=== PATIENT | female | born 1945 | race Caucasian/White ===

== ENCOUNTER 2024-01-08 09:54 | Observation (INO) ==
--- NOTE | 2024-01-08 10:21 | Emergency Department Note ---
Impression & Plan Rectal bleeding, Anal cancer, Leukocytosis ED Provider Note NAME: DEBBIE MARINO AGE: 78 SEX: F : 1945 ARRIVES VIA: Walk-In INFORMANT: [Patient] ED PROVIDER(S): [Davin Sorensen MD] CHIEF COMPLAINT: Rectal bleeding HISTORY OF PRESENT ILLNESS: The patient is a 78-year-old female who was diagnosed with anal cancer. She has seen a surgeon at [facility] and no surgery is scheduled. She has been seeing radiation oncology and is set for her next appointment on Wednesday, in 4 days. She has not yet undergone radiation therapy. Patient states that this morning, she awoke and had a bowel movement. There was blood with the bowel movement and there seemed to be a lot of blood. The blood was bright red. The bleeding has been persistent on and off since. She has not been dizzy or lightheaded. She does not have any abdominal pain. She has never had bleeding from the rectum/anus before. She is not on blood thinning agents, she does not take aspirin. PMHx/PSHx/Social Hx: See Below PHYSICAL EXAM: GENERAL: Patient is in no acute distress. HEENT: No acute trauma, normocephalic atraumatic, mucous membranes moist, no nasal congestion. NECK: No stridor, no adenopathy, no meningismus, trachea is midline. LUNGS: Clear to auscultation bilaterally, no wheeze, no rhonchi, breath sounds equal. HEART: Without murmurs gallops or rubs, regular rate and rhythm. ABDOMEN: Soft, nontender, no peritonitis. EXTREMITIES: No cyanosis, full range of motion of all the joints without pain or difficulty. NEUROLOGIC: Oriented x 3, no acute motor or sensory deficits, no focal weakness. SKIN: No jaundice, no diaphoresis. Rectal: The patient has a hard mass about the anus. The anal canal is small. There is bright red blood noted, no excessive bleeding at this point. DIFFERENTIAL DIAGNOSIS: Anemia, rectal/anal cancer, rectal perforation, abscess, coagulopathy, among others. EMERGENCY DEPARTMENT PROCEDURES: MEDICAL DECISION MAKING: There is a subtle leukocytosis, this certainly could be consistent with infection or just the stress of today's presentation. No anemia. There is a normal platelet count. No coagulopathy. There is some renal insufficiency but this appears baseline looking back at previous testing. No concerning liver enzyme elevation. Abdominal and pelvis CT does show findings of anal cancer, no evidence for excessive bleeding by CT imaging, no mention of abscess. On exam, the patient had a firm anal mass consistent with her renal cancer diagnosis. There was some bright red blood per rectum. The patient presents with rectal/anal bleeding. I suspect the bleeding is from her malignancy. As things just began, I do think she requires some observation to see how this issue progresses. Hopefully, it will spontaneously resolve. She will need her hemoglobin trended. I did speak with the patient and case management, the on-call hospitalist was consulted. Prior/Outside records/notes reviewed: Radiation oncology note from 12/30/2023 discussing findings of anal/rectal cancer and the plan moving forward. GI note from 11/02/2023 discussing her sigmoidoscopy and the findings of malignancy. Imaging/x-ray results per my interpretation: Chronic Medical/Social conditions affecting care: Advanced age. Care/Management discussed with: Case management, the on-call hospitalist. Level of care consideration(s): After review of the information above and other included data: --I believe the patient requires escalation of care to admission DISPOSITION: Admission Past Med/Surg History Medical History Fatigue Hemorrhoids Allergic rhinitis Seasonal allergies Loose stools Hx of cervical cancer hx-> 50 yrs ago - no chemo or radiation Hx of vertigo intermittent- no issues in "quite a while" Hypertension Surgical History (Updated 12/21/23 @ 13:31 by Kesha Trotter RN) History of esophagogastroduodenoscopy Hx of colonoscopy Hx of breast lump removal benign Hx of vein stripping H/O: hysterectomy Family History Daughter Ulcerative colitis Denies family history of Crohn's disease Colorectal cancer Social History Smoking Status: Current every day smoker Tobacco Type: Cigarettes Age Started Using Tobacco: 13; packs per day: 0.5; Cigarettes Per Day: 5-7 PER DAY- ADVISED; Second Hand Exposure: No; Do You Dip or Chew Tobacco: No; Hx Alcohol Use: No Hx Substance Use: No Preferred Language: Setswana Communication Ability: Effective Space Officer Required: No Beliefs That Will Affect Care: None Current Living Situation: Spouse Feels Safe at Home: Yes Diet: regular during the past year weight has: decreased > 10 lbs Assistive Devices: Denture - Upper, Denture - Lower and Glasses Allergies Allergies Allergy/AdvReac Type Severity Reaction Status Date / Time No Known Allergies Allergy Verified 12/21/23 13:29 Home Meds Home Medications Medication Instructions Recorded Confirmed atenolol 100 mg tablet 100 mg PO 1130 07/02/23 01/08/24 meclizine 25 mg tablet 25 mg PO BID PRN Vertigo 07/02/23 01/08/24 Previous Rx's Medication Instructions Recorded pantoprazole 40 mg tablet,delayed 40 mg PO DAILY #30 tabs 10/25/23 release silver sulfadiazine 1 % topical 1 applic topical BID area of skin 12/27/23 cream (Silvadene) irritation #85 grams Results & Data (ED) Vital Signs Vital Signs - 24 hr 01/08/24 10:00 01/08/24 10:29 01/08/24 10:30 Temperature 36.9 C Temperature Source Oral Pulse Rate 66 60 Pulse Rate [Right Finger] Pulse Rate from SpO2 Sensor 59 L Respiratory Rate 16 Respiratory Effort / Characteristics Non-Labored Respiratory Depth Normal Blood Pressure 174/80 H 183/84 H Blood Pressure [Right Arm] Blood Pressure Mean 111 127 Blood Pressure Mean [Right Arm] Pulse Oximetry 95 98 Oxygen Delivery Method Room Air Sepsis Recent Fever Within 48 Hours No Sepsis New/Unexplained Change in Mental Status N/A Sepsis Action Taken by Nursing No Action Required 01/08/24 10:30 01/08/24 10:38 01/08/24 10:40 Temperature Temperature Source Pulse Rate 58 L 59 L 54 L Pulse Rate [Right Finger] Pulse Rate from SpO2 Sensor 58 L 54 L Respiratory Rate Respiratory Effort / Characteristics Respiratory Depth Blood Pressure Blood Pressure [Right Arm] Blood Pressure Mean Blood Pressure Mean [Right Arm] Pulse Oximetry 98 96 Oxygen Delivery Method Sepsis Recent Fever Within 48 Hours Sepsis New/Unexplained Change in Mental Status Sepsis Action Taken by Nursing 01/08/24 10:50 01/08/24 11:00 01/08/24 11:00 Temperature Temperature Source Pulse Rate 53 L 54 L Pulse Rate [Right Finger] Pulse Rate from SpO2 Sensor 53 L 53 L Respiratory Rate 12 18 Respiratory Effort / Characteristics Respiratory Depth Blood Pressure 180/80 H Blood Pressure [Right Arm] Blood Pressure Mean 148 Blood Pressure Mean [Right Arm] Pulse Oximetry 97 96 Oxygen Delivery Method Sepsis Recent Fever Within 48 Hours Sepsis New/Unexplained Change in Mental Status Sepsis Action Taken by Nursing 01/08/24 11:02 01/08/24 11:02 01/08/24 11:03 Temperature Temperature Source Pulse Rate 53 L 52 L Pulse Rate [Right Finger] Pulse Rate from SpO2 Sensor 53 L Respiratory Rate 13 14 Respiratory Effort / Characteristics Respiratory Depth Blood Pressure 164/90 H Blood Pressure [Right Arm] Blood Pressure Mean 120 Blood Pressure Mean [Right Arm] Pulse Oximetry 95 96 Oxygen Delivery Method Room Air Sepsis Recent Fever Within 48 Hours Sepsis New/Unexplained Change in Mental Status Sepsis Action Taken by Nursing 01/08/24 11:03 01/08/24 11:10 01/08/24 11:20 Temperature Temperature Source Pulse Rate 54 L 54 L Pulse Rate [Right Finger] 52 L Pulse Rate from SpO2 Sensor 54 L 54 L Respiratory Rate 14 23 Respiratory Effort / Characteristics Non-Labored Respiratory Depth Normal Blood Pressure Blood Pressure [Right Arm] 164/90 H Blood Pressure Mean Blood Pressure Mean [Right Arm] 114 Pulse Oximetry 96 96 95 Oxygen Delivery Method Room Air Sepsis Recent Fever Within 48 Hours Sepsis New/Unexplained Change in Mental Status Sepsis Action Taken by Nursing 01/08/24 11:36 01/08/24 12:42 Temperature Temperature Source Pulse Rate 56 L Pulse Rate [Right Finger] 52 L Pulse Rate from SpO2 Sensor Respiratory Rate 23 20 Respiratory Effort / Characteristics Non-Labored Spontaneous Respiratory Depth Normal Blood Pressure Blood Pressure [Right Arm] 152/66 H Blood Pressure Mean Blood Pressure Mean [Right Arm] 94 Pulse Oximetry 97 Oxygen Delivery Method Room Air Sepsis Recent Fever Within 48 Hours Sepsis New/Unexplained Change in Mental Status Sepsis Action Taken by Care Home Medications Current Medication List: was personally reviewed by me Laboratory Data Attestation: I reviewed the patient's lab results. 01/08/24 10:19 01/08/24 10:19 Lab Results 01/08/24 Range/Units 10:19 WBC 11.29 H (4.8-10.8) K/ul RBC 4.58 (4.20-5.40) M/uL Hgb 14.4 (12.0-16.0) g/dl Hct 45.0 (37.0-47.0) % MCV 98.3 (80.0-100.0) fL MCH 31.4 (25.0-34.0) pg MCHC 32.0 (32.0-36.0) g/dL RDW Std Deviation 45.2 (36.4-46.3) fL RDW Coeff of Mini 12.6 (11.5-14.5) % Plt Count 186 (130-400) K/uL MPV 9.8 (9.4-12.4) fL PT 10.6 (9.0-12.0) Seconds INR 1.0 (0.9-1.1) APTT 26 (21-31) Seconds PTT Ratio 0.9 Sodium 138 (136-145) mmol/L Potassium 4.2 (3.5-5.1) mmol/L Chloride 103 (98-107) mmol/L Carbon Dioxide 29 (21-32) mmol/L Anion Gap 6 (3-11) BUN 34 H (6-23) mg/dl Creatinine 1.55 H (0.6-1.2) mg/dl Est Cr Clr Drug Dosing 24.1 ml/min Est GFR ( Amer) 36.5 ml/min Est GFR (Non-Af Amer) 31.5 ml/min BUN/Creatinine Ratio 21.9 H (10-20) Glucose 123 H (70-99(Fasting)) mg/dl Calcium 9.4 (8.6-10.3) mg/dl Total Bilirubin 0.6 (0.2-1.0) mg/dl AST 15 (13-39) U/L ALT 9 (7-52) U/L Alkaline Phosphatase 76 (34-104) U/L Total Protein 8.1 (6.0-8.3) gm/dl Albumin 3.6 (3.4-5.0) gm/dl Globulin 4.5 H (2.5-4.0) gm/dl Albumin/Globulin Ratio 0.8 L (0.9-2) Blood Type A Positive Antibody Screen NEGATIVE Administered Medications Discontinued Medications Diphenhydramine HCl (Diphenhydramine 50 Mg/Ml Vial) 25 mg IV NOW STA Stop: 01/08/24 11:33 Last Admin: 01/08/24 11:39 Dose: 25 mg Documented By: NRB Sodium Chloride (Nss) 500 mls @ 999 mls/hr IV .Q31M ONE Stop: 01/08/24 12:47 Last Admin: 01/08/24 12:40 Dose: 999 mls/hr Documented By: GARRISON Ioversol (Optiray 320 100ml) 92 ml IV ONCE ONE Stop: 01/08/24 12:11 Last Admin: 01/08/24 12:10 Dose: 92 ml Documented By: VINCENZO Methylprednisolone (Methylprednisolone 125 Mg/2 Ml Vial) 60 mg IV NOW STA Stop: 01/08/24 11:33 Last Admin: 01/08/24 11:39 Dose: 60 mg Documented By: NRB Imaging Data Radiologist's Impression: Abdomen/Pelvis CT 01/08/24 10:16 CT abd pelvis IV con only CLINICAL HISTORY: eval, rectum/anus. Anal CA, bleeding TECHNIQUE: Helical axial images of the abdomen and pelvis were obtained and displayed. Automated dose lowering techniques and/or adjustment according to patient size were utilized for this exam. This exam was performed with intravenous contrast. CT DOSE: 281.21 mGy.cm COMPARISON: Comparison is made to CT abdomen pelvis 12/27/[address] 12/28/2023 FINDINGS: Lower chest: Bibasilar atelectasis versus scarring is seen. Liver: Unremarkable. No focal lesions are seen. Gallbladder and biliary tree: No calcified gallstones. Normal caliber wall. No intra- or extrahepatic biliary ductal dilation. Pancreas: Unremarkable, no focal lesions. Spleen: Unremarkable. Adrenals: Nodularity of the adrenal glands is noted. Kidneys and ureters: Renal cysts are seen. Bladder: Unremarkable. Reproductive organs: Unremarkable. Bowel: Diverticulosis is seen without evidence of diverticulitis. There is prominent wall thickening and surrounding fat stranding about the anus. Small intramural hypodensities are seen posteriorly measuring up to 7 mm. Lymph nodes Retroperitoneal: Unremarkable. Pelvic: Unremarkable. Mesenteric: Left inguinal node measures up to 12 mm in diameter. Stable 7 mm right external iliac node. Peritoneum: Normal. Vessels: Atherosclerotic calcifications are seen. Abdominal wall: Unremarkable. Bones: Degenerative changes in the visualized spine. IMPRESSION: 1. Soft tissue thickening about the rectum is seen. Heterogeneity of the soft tissue with subcentimeter hypodensities, nonspecific and may represent focuses of necrosis however infection is not excluded. 2. Stable lymph nodes as above. ACT 112: Negative or not required by law. Electronically signed by: Kennedy Faye M.D. 01/08/2024 12:30 PM Discharge Plan Visit Data Chief Complaint: Rectal Bleed Stated Complaint: RECTAL BLEEDING ED Provider: Davin Sorensen Discharge Problem: Rectal bleeding, Anal cancer, Leukocytosis Patient Disposition: Admitted As Inpatient Condition: Fair Forms Stand Alone Forms: [facility] [employer] Prescriptions Prescriptions: No Action atenolol 100 mg tablet 100 mg PO 1130 meclizine 25 mg tablet 25 mg PO BID PRN (Reason: Vertigo) silver sulfadiazine [Silvadene] 1 % cream 1 applic topical BID Qty: 85 3RF Rx Instructions: apply a 1.5 mm thickness pantoprazole 40 mg tablet,delayed release (DR/EC) 40 mg PO DAILY Qty: 30 5RF Referrals Referrals: Burke Ospina [Primary Care Provider] - Discharge Problem: Leukocytosis Qualifiers: Leukocytosis type: unspecified Qualified Code(s): D72.829 - Elevated white blood cell count, unspecified
[2024-01-08 10:41] LABS: Hemoglobin 14.4 g/dl (12.0-16.0); Mean Corpuscular Hemoglobin 31.4 pg (25.0-34.0); Mean Corpuscular Volume 98.3 fL (80.0-100.0); Mean Platelet Volume 9.8 fL (9.4-12.4); Platelet Count 186 K/uL (130-400); RDW Coefficient of Variation 12.6 % (11.5-14.5); RDW Standard Deviation 45.2 fL (36.4-46.3); Red Blood Count 4.58 M/uL (4.20-5.40); White Blood Count 11.29 K/ul (4.8-10.8)
[2024-01-08 10:55] LABS: Albumin Globulin Ratio 0.8 (0.9-2); Albumin Level 3.6 gm/dl (3.4-5.0); BUN Creatinine Ratio 21.9 (10-20); Bilirubin,Total 0.6 mg/dl (0.2-1.0); Calcium 9.4 mg/dl (8.6-10.3); Creatinine Clr Calc Pharmacy 24.1 ml/min; Est GFR (African American) 36.5 ml/min; Est GFR (Non-African American) 31.5 ml/min; Globulin 4.5 gm/dl (2.5-4.0); Potassium 4.2 mmol/L (3.5-5.1); Total Protein 8.1 gm/dl (6.0-8.3)
[2024-01-08 11:06] LABS: Partial Thromboplastin Ratio 0.9; Partial Thromboplastin Time 26 Seconds (21-31); Prothrombin Time 10.6 Seconds (9.0-12.0)
[2024-01-08] MEDS: methylPREDNISolone 125 MG/2 ML VIAL IV STA (11:39)
[2024-01-08] MEDS: diphenhydrAMINE 50 MG/ML VIAL IV STA (11:39)
[2024-01-08] MEDS: OPTIRAY 320 100ml IV ONE (12:10)
--- NOTE | 2024-01-08 12:32 | CT Scan Report ---
CT abd pelvis IV con only CLINICAL HISTORY: eval, rectum/anus. Anal CA, bleeding TECHNIQUE: Helical axial images of the abdomen and pelvis were obtained and displayed. Automated dose lowering techniques and/or adjustment according to patient size were utilized for this exam. This e xam was performed with intravenous contrast. CT DOSE: 281.21 mGy.cm COMPARISON: Comparison is made to CT abdomen pelvis 12/27/[address] 12/28/2023 FINDINGS: Lower chest: Bibasilar atelectasis versus scarring is seen. Liver: Unremarkable. No focal lesions are seen. Gallbladder and biliary tree: No calcified gallstones. Normal caliber wall. No intra- or extrahepatic biliary ductal dilation. Pancreas: Unremarkable, no focal lesions. Spleen: Unremarkable. Adrenals: Nodularity of the adrenal glands is noted. Kidneys and ureters: Renal cysts are seen. Bladder: Unremarkable. Reproductive organs: Unremarkable. Bowel: Diverticulosis is seen without evidence of diverticulitis. There is prominent wall thickening and surrounding fat stranding about the anus. Small intramural hypodensities are seen posteriorly ginna suring up to 7 mm. Lymph nodes Retroperitoneal: Unremarkable. Pelvic: Unremarkable. Mesenteric: Left inguinal node measures up to 12 mm in diameter. Stable 7 mm right external iliac nod e. Peritoneum: Normal. Vessels: Atherosclerotic calcifications are seen. Abdominal wall: Unremarkable. Bones: Degenerative changes in the visualized spine. IMPRESSION: 1. Soft tissue thickening about the rectum is seen. Heterogeneity of the soft tissue with subcentime ter hypodensities, nonspecific and may represent focuses of necrosis however infection is not exclude d. 2. Stable lymph nodes as above. ACT 112: Negative or not required by law. Electronically signed by: Kennedy Faye M.D. 01/08/2024 12:30 PM
[2024-01-08] MEDS: SODIUM CHLORIDE 0.9% 500 ML IV ONE (12:40)
--- NOTE | 2024-01-08 12:45 | History & Physical Report ---
Date of Service January 08, 2024 Assessment & Plan (1) Bright red blood per rectum: Plan: BRB with bowel movements the morning of 01/07 x 2 Not on blood thinners Suspect lower GI bleed secondary to renal mass/cancer A/P CT did note hypodensities in the rectum which may represent focus of necrosis Hgb 14.4 on arrival; hemodynamically stable Trend H&H Type & Screen; blood form consent obtained (if needed) Keep n.p.o. for now, then advance to clear liquid diet as tolerated Continue IVF with LR at 80mL/hr while NPO Continue silver sulfadiazine cream for rectal irritation Tylenol as needed for pain/discomfort; avoid NSAIDs A.m. CBC, BMP, mag (2) Primary squamous cell carcinoma of anal canal: Plan: Dx via colonoscopy performed on 10/25/2023 Patient is scheduled to start radiation therapy on Thursday 01/11 at the [facility] (3) Leukocytosis: Plan: Mild; noted;WBC 11.29 on arrival Clinically, patient denies fever or infectious symptoms Repeat a.m. labs (4) Hypertension: Plan: Continue atenolol (5) Lower GI bleed: Plan Disposition: Obs -admit to PCU telemetry Full code Clear liquid diet, advance as tolerated VTE PPx: SCDs (hold chemical DVT PPx in the setting of acute rectal bleed) History of Present Illness Chief Complaint: Rectal Bleed Primary Care Provider: Burke Singh is a 78-year-old female with PMH of rectal cancer, rectal mass, and HTN. She presented for bright red blood in rectum x 2 episodes the morning of 01/07. No prior experiences like this one. Patient had recent diagnosis of SCC of anal canal via colonoscopy in October 2023. She is scheduled to start receiving radiation therapy on Thursday 01/[address] Masterson at the [facility], but notes that she has not had any radiation therapy yet. She was also seen by surgery at [place], who recommended trial of radiation therapy prior to any sort of surgery/colectomy. Patient reports that after BRB in rectum during a bowel movement this morning, she later tried standing up and noticed that she was bleeding/dripping from her rectum. She notes she is not having pain in the rectum, but notes she is having pressure, and a sensation like she needs to defecate at all times. No recent change in diet. She is not eating or drinking today. Prior to that she was tolerating solids and fluids fine. She reports that she took her regular morning medication, but did not take her pantoprazole. No recent change in medications. She does note she has a history of hemorrhoids, but noted that on her recent colonoscopy they were said to be small. Patient has been applying silver sulfadiazine cream to her rectum for itching, which she usually takes at night. No PMH of diverticulitis, Crohn's, UC, or IBD. No hx of blood transfusions. She takes Tylenol as needed for pain/discomfort, but denies any recent NSAID use. Patient is a current everyday tobacco cigarette smoker; 1 pack / 3 days. She denies any alcohol use. Patient is hypertensive at 164/90, and mildly bradycardic at 56 bpm at time of admission; vitals otherwise stable. ED course: NSS 500 mL IV Solu-Medrol 60 mg IV (pretreatment prior to CT for potential contrast allergy) Benadryl 25 mg IV (pretreatment prior to CT for potential contrast allergy) ROS: Patient endorses fatigue, dry cough, nausea, BRB in rectum, pressure in rectum, intermittent diarrhea, and itching around her rectum Patient denies fever, chills, nightsweats, dizziness, lightheadedness, CP, pleuritic CP, SOB, abdominal cramping, abdominal pain, constipation, flank pain, back pain, saddle anesthesia, pain/numbness/tingling in the legs. Allergies Allergy/AdvReac Type Severity Reaction Status Date / Time No Known Allergies Allergy Verified 12/21/23 13:29 Home Medications Medication Instructions Recorded Confirmed Type atenolol 100 mg tablet 100 mg PO 1130 07/02/23 01/08/24 History meclizine 25 mg tablet 25 mg PO BID PRN Vertigo 07/02/23 01/08/24 History pantoprazole 40 mg tablet,delayed 40 mg PO DAILY #30 tabs 10/25/23 01/08/24 Rx release silver sulfadiazine 1 % topical 1 applic topical BID area of skin 12/27/23 01/08/24 Rx cream (Silvadene) irritation #85 grams Past Med/Surg History Medical History Fatigue Hemorrhoids Allergic rhinitis Seasonal allergies Loose stools Hx of cervical cancer hx-> 50 yrs ago - no chemo or radiation Hx of vertigo intermittent- no issues in "quite a while" Hypertension Surgical History (Updated 12/21/23 @ 13:31 by Kesha Trotter RN) History of esophagogastroduodenoscopy Hx of colonoscopy Hx of breast lump removal benign Hx of vein stripping H/O: hysterectomy Family History Daughter Ulcerative colitis Denies family history of Crohn's disease Colorectal cancer Social History Smoking Status: Current every day smoker Tobacco Type: Cigarettes Age Started Using Tobacco: 13; packs per day: 0.5; Cigarettes Per Day: 5-7 PER DAY- ADVISED; Second Hand Exposure: No; Do You Dip or Chew Tobacco: No; Hx Alcohol Use: No Hx Substance Use: No Preferred Language: Turkmen Communication Ability: Effective Jewel Bearing Maker Required: No Beliefs That Will Affect Care: None Current Living Situation: Spouse Feels Safe at Home: Yes Diet: regular during the past year weight has: decreased > 10 lbs Assistive Devices: Denture - Upper, Denture - Lower and Glasses Review of Systems Review of Systems: See HPI above Physical Exam Physical Exam: General: no acute distress; pleasant affect; non-toxic appearing; well- nourished; cooperative; SpO2 97% on RA HEENT: normocephalic, atraumatic; no scleral icterus; PERRLA w/ EOMs intact; moist mucus membrane; vision and hearing grossly intact Neck: supple; no lymphadenopathy; trachea midline Skin: warm, dry without signs of tenting; no cyanosis; no rashes, bruising, lesions, or erythema noted CV: chest wall NTP; RR, mildly bradycardic at 52 bpm; S1/S2 normal; no murmurs/rubs/gallops; pulses intact and symmetric at radial, DP, and PT Lungs: no acute respiratory distress; symmetrical chest wall expansion; mild expiratory rhonchi auscultated across all lung ritter bilaterally ABD: Soft, NTP in all 4 quadrants; BS present; no rebound/guarding; no distention; no signs of rashes, bruising, or internal bleeding MSK: no tics or fasciculations; no edema noted in the LEs b/l, nonerythematous Neuro: A&Ox3; normal mood and affect; fluent speech; no focal deficits; sensation grossly intact in the LEs b/l Results & Data Results & Data Vital Signs (Past 12 Hours) Vital Signs Temp Pulse Pulse Resp BP BP Pulse Ox 01/08/24 12:42 52 L 20 152/66 H 97 01/08/24 11:36 56 L 23 01/08/24 11:20 54 L 23 95 01/08/24 11:10 54 L 96 01/08/24 11:03 52 L 14 164/90 H 96 01/08/24 11:03 52 L 14 96 01/08/24 11:02 164/90 H 01/08/24 11:02 53 L 13 95 01/08/24 11:00 54 L 18 96 01/08/24 11:00 180/80 H 01/08/24 10:50 53 L 12 97 01/08/24 10:40 54 L 96 01/08/24 10:38 59 L 01/08/24 10:30 58 L 98 01/08/24 10:30 183/84 H 01/08/24 10:29 60 98 01/08/24 10:00 36.9 C 66 16 174/80 H 95 O2 Del Method 01/08/24 12:42 Room Air 01/08/24 11:36 01/08/24 11:20 01/08/24 11:10 01/08/24 11:03 Room Air 01/08/24 11:03 Room Air 01/08/24 11:02 01/08/24 11:02 01/08/24 11:00 01/08/24 11:00 01/08/24 10:50 01/08/24 10:40 01/08/24 10:38 01/08/24 10:30 01/08/24 10:30 01/08/24 10:29 01/08/24 10:00 Room Air Laboratory Results Abnormal lab results 01/08/24 Range/Units 10:19 WBC 11.29 H (4.8-10.8) K/ul BUN 34 H (6-23) mg/dl Creatinine 1.55 H (0.6-1.2) mg/dl BUN/Creatinine Ratio 21.9 H (10-20) Glucose 123 H (70-99(Fasting)) mg/dl Globulin 4.5 H (2.5-4.0) gm/dl Albumin/Globulin Ratio 0.8 L (0.9-2) Diagnostic Findings Abdomen/Pelvis CT 01/08/24 10:16 CT abd pelvis IV con only CLINICAL HISTORY: eval, rectum/anus. Anal CA, bleeding TECHNIQUE: Helical axial images of the abdomen and pelvis were obtained and displayed. Automated dose lowering techniques and/or adjustment according to patient size were utilized for this exam. This exam was performed with intravenous contrast. CT DOSE: 281.21 mGy.cm COMPARISON: Comparison is made to CT abdomen pelvis 12/27/[address] 12/28/2023 FINDINGS: Lower chest: Bibasilar atelectasis versus scarring is seen. Liver: Unremarkable. No focal lesions are seen. Gallbladder and biliary tree: No calcified gallstones. Normal caliber wall. No intra- or extrahepatic biliary ductal dilation. Pancreas: Unremarkable, no focal lesions. Spleen: Unremarkable. Adrenals: Nodularity of the adrenal glands is noted. Kidneys and ureters: Renal cysts are seen. Bladder: Unremarkable. Reproductive organs: Unremarkable. Bowel: Diverticulosis is seen without evidence of diverticulitis. There is pr ominent wall thickening and surrounding fat stranding about the anus. Small intramural hypodensities are seen posteriorly measuring up to 7 mm. Lymph nodes Retroperitoneal: Unremarkable. Pelvic: Unremarkable. Mesenteric: Left inguinal node measures up to 12 mm in diameter. Stable 7 mm right external iliac node. Peritoneum: Normal. Vessels: Atherosclerotic calcifications are seen. Abdominal wall: Unremarkable. Bones: Degenerative changes in the visualized spine. IMPRESSION: 1. Soft tissue thickening about the rectum is seen. Heterogeneity of the soft tissue with subcentimeter hypodensities, nonspecific and may represent focuses of necrosis however infection is not excluded. 2. Stable lymph nodes as above. ACT 112: Negative or not required by law. Electronically signed by: Kennedy Faye M.D. 01/08/2024 12:30 PM Code Status & VTE Plan Code Status Full code VTE Prophylaxis Plan VTE Prophylaxis will be ordered: Yes Supervising Physician Co-Signing Physician Notes I personally saw and examined the patient. I independently reviewed the labs, imaging, problem list, medication list, past medical history and family history. I verified all perla points and agree with Hudson Ortiz PA-C with the following exceptions and/or additions: 78 year old female with anal cancer presents to the ER with bright red blood in stool started this morning. O/E HS RRR, no murmurs, Chest CTAB, Abdo SNT A/P Bright red blood per rectum - secondary to anal cancer, trend H&H, if stable overnight can likely be discharged tomorrow. Transfuse <7. PG Care Time/CCT Total # of Minutes Spent Total Time Spent with Patient: Total time spent is greater than 50% in coordination of care (as documented) at patient's floor/unit and/or counseling patient: [place] [address] INT INP/OBS CARE 2/55MIN Patient Type New Medical Decision Making Low Complexity Diagnoses Bright red blood per rectum K62.5 Primary squamous cell carcinoma of anal canal C44.520 Leukocytosis D72.829 Leukocytosis type: unspecified Hypertension I10 Lower GI bleed K92.2 (3) Leukocytosis Leukocytosis type: unspecified Qualified Code(s): D72.829 - Elevated white blood cell count, unspecified
[2024-01-08] MEDS: LACTATED RINGER'S 1,000 ML IV SCH (14:03)
[2024-01-08] MEDS: PANTOprazole 40 MG TAB PO STA (14:05)
[2024-01-08] MEDS ORDERED: ACETAMINOPHEN 325 MG TAB PO PRN (15:47)
[2024-01-08] MEDS ORDERED: ONDANSETRON INJ 2 MG/ML 2 ML VIAL IV PRN (15:47)
[2024-01-08] MEDS ORDERED: NICOTINE 14 MG/24 HR PATCH TD SCH (16:45)
[2024-01-08] MEDS: NICOTINE 7 MG/24 HR TDSY TD SCH (17:55)
[2024-01-08 18:27] LABS: Hematocrit (blood only) 43.5 % (37.0-47.0); Hemoglobin 13.9 g/dl (12.0-16.0)
[2024-01-08] MEDS: SILVER SULFADIAZINE 1% CR 50 GM JAR TOP SCH (20:55)
[2024-01-09 07:19] LABS: Basophils # (auto) 0.07 K/uL (0.00-0.20); Basophils % (auto) 0.6 %; Eosinophils # (auto) 0.03 K/uL (0.00-0.50); Eosinophils % (auto) 0.3 %; Hemoglobin 12.5 g/dl (12.0-16.0); Immature Granulocytes # (auto) 0.09 K/uL (0.01-0.20); Immature Granulocytes % (auto) 0.8 %; Lymphocytes # (auto) 1.58 K/uL (1.20-3.40); Lymphocytes % (auto) 14.3 %; Mean Corpuscular Hemoglobin 31.9 pg (25.0-34.0); Mean Corpuscular Hgb Conc 33.8 g/dL (32.0-36.0); Mean Corpuscular Volume 94.4 fL (80.0-100.0); Mean Platelet Volume 9.8 fL (9.4-12.4); Monocytes # (auto) 0.81 K/uL (0.11-0.59); Monocytes % (auto) 7.4 %; Neutrophils # (auto) 8.44 K/uL (1.40-6.50); Neutrophils % (auto) 76.6 %; Platelet Count 163 K/uL (130-400); RDW Coefficient of Variation 12.3 % (11.5-14.5); RDW Standard Deviation 42.7 fL (36.4-46.3); Red Blood Count 3.92 M/uL (4.20-5.40); White Blood Count 11.02 K/ul (4.8-10.8)
[2024-01-09 07:37] LABS: BUN Creatinine Ratio 25.6 (10-20); Creatinine Clr Calc Pharmacy 29.9 ml/min; Est GFR (African American) 45.6 ml/min; Est GFR (Non-African American) 39.4 ml/min; Magnesium 1.6 mg/dl (1.7-2.4); Potassium 4.3 mmol/L (3.5-5.1)
[2024-01-09] MEDS: PANTOprazole 40 MG TAB PO SCH (08:08)
--- NOTE | 2024-01-09 11:13 | Discharge Summary ---
Date of Service January 09, 2024 Admission HPI Per Admitting Provider Samantha is a 78-year-old female with PMH of rectal cancer, rectal mass, and HTN. She presented for bright red blood in rectum x 2 episodes the morning of 01/07. No prior experiences like this one. Patient had recent diagnosis of SCC of anal canal via colonoscopy in October 2023. She is scheduled to start receiving radiation therapy on Thursday 01/[address] Masterson at the [facility], but notes that she has not had any radiation therapy yet. She was also seen by surgery at [place], who recommended trial of radiation therapy prior to any sort of surgery/colectomy. Patient reports that after BRB in rectum during a bowel movement this morning, she later tried standing up and noticed that she was bleeding/dripping from her rectum. She notes she is not having pain in the rectum, but notes she is having pressure, and a sensation like she needs to defecate at all times. No recent change in diet. She is not eating or drinking today. Prior to that she was tolerating solids and fluids fine. She reports that she took her regular morning medication, but did not take her pantoprazole. No recent change in medications. She does note she has a history of hemorrhoids, but noted that on her recent colonoscopy they were said to be small. Patient has been applying silver sulfadiazine cream to her rectum for itching, which she usually takes at night. No PMH of diverticulitis, Crohn's, UC, or IBD. No hx of blood transfusions. She takes Tylenol as needed for pain/discomfort, but denies any recent NSAID use. Patient is a current everyday tobacco cigarette smoker; 1 pack / 3 days. She denies any alcohol use. Patient is hypertensive at 164/90, and mildly bradycardic at 56 bpm at time of admission; vitals otherwise stable. ED course: NSS 500 mL IV Solu-Medrol 60 mg IV (pretreatment prior to CT for potential contrast allergy) Benadryl 25 mg IV (pretreatment prior to CT for potential contrast allergy) ROS: Patient endorses fatigue, dry cough, nausea, BRB in rectum, pressure in rectum, intermittent diarrhea, and itching around her rectum Patient denies fever, chills, nightsweats, dizziness, lightheadedness, CP, pleuritic CP, SOB, abdominal cramping, abdominal pain, constipation, flank pain, back pain, saddle anesthesia, pain/numbness/tingling in the legs. Principal Diagnosis Rectal bleeding secondary to malignancy Discharge Exam General-alert and oriented x3, no fever, no chills HEENT-head atraumatic and normocephalic, pupils equal and reactive to light, extraocular muscles intact Neck-no lymphadenopathy or thyromegaly, trachea midline Chest-clear to auscultation. No rales, wheezing or rhonchi Cardiac-regular rate and rhythm, normal S1 and S2 Abdomen-normal bowel sounds, nontender, no hepatosplenomegaly Extremities-no cyanosis, clubbing, or edema Neuro-cranial nerves II through XII intact, motor and sensory function within normal limits, strength symmetrical, no focal deficits Psych-normal affect, normal mood Discharge Data Allergies Allergy/AdvReac Type Severity Reaction Status Date / Time No Known Allergies Allergy Verified 12/21/23 13:29 Consultations 01/08/24 12:27 ED Decision to Admit Stat Ordered Studies 01/08/24 10:16 CT abd pelvis IV con only Stat Hospital Course (1) Bright red blood per rectum: Rectal bleeding most likely from underlying malignancy. This has subsided. Hemoglobin is stable. She understands this could recur until she receives definitive treatment. Fortunately she is not on systemic anticoagulation (2) Primary squamous cell carcinoma of anal canal: Dx via colonoscopy performed on 10/25/2023. Patient is scheduled to start radiation therapy on Thursday 01/11 at the [facility] (3) Leukocytosis: Mild. No clinical significance. No fever (4) Hypertension: Stable. Continue atenolol Plan Home today, January 08. Commence radiation treatments this week as scheduled Total Time Total Time Spent Total Time Spent (In Minutes): 45-minute Discharge Plan Discharge Items Patient Disposition: Home - Self-Care Reason For Visit: RECTAL BLEED Discharge Diagnosis: Rectal bleeding from malignancy Condition on Discharge: Good Activity: Resume your previous activity Non-emergency contact: Primary Care Provider and Oncologist Call non-emergency contact if: your symptoms worsen Follow-up/Referrals: Burke Ospina [Primary Care Provider] - Diet: Regular Addtl Attending Provider Instructions: Bleeding could recur until rectal cancer is treated. Avoid aspirin or nonsteroidal anti-inflammatory agents. Tylenol is okay Pending Studies at Discharge: No Stand-Alone Forms: [employer], Smoking Cessation Medications and DC Order Prescriptions: Continued atenolol 100 mg tablet 100 mg PO 1130 meclizine 25 mg tablet 25 mg PO BID PRN (Reason: Vertigo) silver sulfadiazine [Silvadene] 1 % cream 1 applic topical BID Qty: 85 3RF Rx Instructions: apply a 1.5 mm thickness pantoprazole 40 mg tablet,delayed release (DR/EC) 40 mg PO DAILY Qty: 30 5RF Discharge Orders: Discharge Order (Routine); Ordered 01/09/24 Ordered By: Tyson Maki Admission Data Admit Date/Time: 01/08/24 13:14 Attending Provider: Tyson Maki Admit Provider: Oliver Luna Primary Care Provider: Burke Ospina Other Providers: Oliver Luna Coding Level of Care Code 90104 INP/OBS DISCH >30 MIN Diagnoses Bright red blood per rectum K62.5 Primary squamous cell carcinoma of anal canal C44.520 Leukocytosis D72.829 Leukocytosis type: unspecified Hypertension I10
[2024-01-09] MEDS: ATENOLOL 50 MG TABLET PO SCH (12:02)
== END 2024-01-09 12:57 | disposition home or self-care (01) ==
LOC: 2E 09:54 → ED 09:54 → SUATTDRO 13:14 → 2E 15:13

== ENCOUNTER 2024-02-26 21:29 | Inpatient (IN) ==
--- NOTE | 2024-02-26 21:41 | Emergency Department Note ---
Impression & Plan Diarrhea, Hypomagnesemia, Pancytopenia, Hypocalcemia, Excoriation of buttock ED Provider Note NAME: DEBBIE MARINO AGE: 79 SEX: F : 1945 ARRIVES VIA: Ambulance INFORMANT: Patient, Charge nurse reports, initial nursing triage note ED PROVIDER(S): Martin Sal MD CHIEF COMPLAINT: Diarrhea, outpatient referral MEDICAL DECISION MAKING: Patient presented due to concern for diarrhea. IV was established and blood work was obtained. Patient was ordered IV fluids and IV zofran. I did message the patient's food specialist Davin Reese PA-C. He does agree with plan of care and a will see the patient tomorrow. Patient does have leukopenia anemia and thrombocytopenia. Patient's ANC is 560. Patient's creat is 1.32 which is improved compared to earlier. Patient does have prerenal azotemia associated hypocalcemia and hypomagnesemia. TSH normal. Patient was reassessed and states that she was feeling improved. Discussion w/ other healthcare providers: Davin Reese PA-C with oncology Dr. White inpatient medicine service Prior /Outside records reviewed: Reviewed an ED visit note from earlier today from Dr. Perera. The patient was diagnosed with diarrhea and leukopenia neutropenia SHENG enterocolitis and thrombocytopenia. Patient did have a CT of the abdomen pelvis performed at that time which showed enterocolitis. Patient awake and 1. 2 9 platelet count of 54 neutropenic 930 SHENG with creatinine 1.48. I reviewed a hematology oncology note from the [facility]. Patient was seen by Dr. Masterson/Davin Reese PA-C. 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 Patient did have a rectal mass biopsy completed November 02, 2022 for which showed poorly differentiated squamous cell carcinoma. Patient with concurrent chemoradiation treatment with 5-FU plus mini Meissen. Differential diagnosis: Infection, dehydration, metabolic abnormality, hypo/hyperglycemia, electrolyte imbalance, anemia, UTI, pneumonia, thyroid dysfunction among others were considered. Diagnostics, as interpreted by me: ECG: Sinus bradycardia, rate of 54, normal intervals, normal axis, T wave version V2 not V3. No ST elevations. Cardiac monitoring: An order was placed for continuous cardiac monitoring. The monitor shows a rate of 65 with sinus rhythm. Patient was placed on pulse oximetry Medical decision rules: None Imaging studies: None HPI: Patient presents due to concern for persistent diarrheal symptoms. The patient states that this began yesterday and the patient has not had any improvement in her symptoms. The patient states that she has had about 5-6 bouts of watery diarrhea. The patient does have a history of anal cancer who has been receiving radiation and chemotherapy. The patient was seen here earlier this morning but has not had abatement of her diarrhea. The patient does have a nausea pill at home which she has taken but this has not proved her symptoms. The patient denies any chest pains or shortness of breath. Patient states that she is a smoker. Patient states that she only has pain when she feels that she has to have a bout of diarrhea but otherwise has no abdominal pain. Patient denies any blood in the stool. PAST MEDICAL HISTORY: See Below PAST SURGICAL HISTORY: See Below SOCIAL HISTORY: See Below HOME MEDICATIONS: See Below ALLERGIES: See Below VITALS: See Below PHYSICAL EXAMINATION: GENERAL: NAD, non-toxic. Wearing glasses. EYE EXAM: Normal conjunctiva. PERRL, no anisocoria and EOM's grossly intact w/o pain. OROPHARYNX: Moist mucus membranes, grossly normal dentition. NECK: Trachea midline, no stridor. Supple, no nuchal rigidity, no adenopathy, non-tender. No signs of meningismus. FROM of the neck with good chin to chest and neck extension. LUNGS: Clear to auscultation. Normal chest wall mechanics. HEART: NSR, no MRG. ABDOMEN: Abdomen soft, non-tender, no masses, no rebound or guarding. BACK: No CVA TTP. SKIN: Excoriation noted to the perianal and medial buttock area. UPPER EXTREMITIES: Upper extremities are grossly normal. LOWER EXTREMITIES: Grossly normal, no edema. NEURO EXAM: A&O x3, cranial nerves II-XII grossly intact, normal speech, moves all 4 extremities. Past Med/Surg History Problem List (Updated 02/27/24 @ 00:20 by Martin Sal MD) Excoriation of buttock (Acute) Hypocalcemia (Acute) Pancytopenia (Acute) Thrombocytopenia (Acute) Enterocolitis (Acute) SHENG (acute kidney injury) (Acute) Neutropenia (Acute) Leukopenia (Acute) Diarrhea (Acute) Anal squamous cell carcinoma (Acute) Hypomagnesemia (Acute) Diarrhea (Acute) Rectal bleeding (Acute) Rectal mass Abnormal weight loss Encounter for pre-operative examination Medical History Primary squamous cell carcinoma of anal canal Fatigue Hemorrhoids Allergic rhinitis Seasonal allergies Loose stools Hx of cervical cancer Hx 50 years ago, no chemo or radiation Hx of vertigo Intermittent, no recent issues Hypertension Surgical History Port-A-Cath in place (01/13/24) Insertion of Access Port with Fluoroscopy-Left Subclavian(Left) - Josh Goel, DO H/O flexible sigmoidoscopy 11/02/23, [facility] History of esophagogastroduodenoscopy Hx of colonoscopy 10/25/23 Hx of breast lump removal benign Hx of vein stripping H/O: hysterectomy Family History Daughter Ulcerative colitis Denies family history of Crohn's disease Colorectal cancer Social History Smoking Status: Current some day smoker Tobacco Type: Cigarettes Age Started Using Tobacco: 13; packs per day: 0.5; Cigarettes Per Day: 5-7 PER DAY- advised on policy; Second Hand Exposure: No; Do You Dip or Chew Tobacco: No; Hx Alcohol Use: No Hx Substance Use: No Preferred Language: Sami Communication Ability: Effective Compressor Station Operator Required: No Beliefs That Will Affect Care: None Current Living Situation: Spouse Feels Safe at Home: Yes Diet: regular during the past year weight has: decreased > 10 lbs Assistive Devices: Denture - Upper, Denture - Lower and Glasses Allergies Allergies Allergy/AdvReac Type Severity Reaction Status Date / Time No Known Allergies Allergy Verified 02/26/24 22:04 Home Meds Home Medications Medication Instructions Recorded Confirmed atenolol 100 mg tablet 100 mg PO .DAILY @ 1130 07/02/23 02/26/24 meclizine 25 mg tablet 25 mg PO BID PRN Vertigo 07/02/23 02/26/24 pantoprazole 40 mg tablet,delayed 40 mg PO QAM 01/11/24 02/26/24 release vitamin A and D (Sween Cream 1 applic topical 6XD PRN Skin 01/11/24 02/26/24 topical) Irritation ondansetron HCl 8 mg tablet 8 mg PO Q8H PRN Nausea 01/17/24 02/26/24 prochlorperazine maleate 10 mg 10 mg PO Q6H PRN Nausea And 01/17/24 02/26/24 tablet (Compazine) Vomiting gabapentin 100 mg capsule 100 mg PO TID 02/07/24 02/26/24 apixaban 2.5 mg tablet (Eliquis) 2.5 mg PO Q12H 02/14/24 02/26/24 Previous Rx's Medication Instructions Recorded silver sulfadiazine 1 % topical 1 applic topical BID irritation of 01/24/24 cream (Silvadene) anal area #85 grams diphenoxylate-atropine 2.5 1 tab PO Q6H PRN diarrhea #12 tabs 02/20/24 mg-0.025 mg tablet (Lomotil) Results & Data (ED) Vital Signs Vital Signs - 24 hr 02/26/24 21:57 02/26/24 22:45 02/27/24 00:00 Temperature 36.6 C Temperature Source Oral Pulse Rate 51 L 56 L Pulse Rate [Apical] 63 Pulse Rhythm [Apical] Regular Pulse Strength [Apical] Normal Respiratory Rate 24 23 Respiratory Effort / Characteristics Non-Labored Respiratory Depth Normal Respiratory Pattern Regular Blood Pressure 124/63 Blood Pressure [Right Arm] 131/66 Blood Pressure Mean 83 Blood Pressure Mean [Right Arm] 87 Blood Pressure Position [Right Arm] Lying Pulse Oximetry 97 96 Oxygen Delivery Method Room Air Room Air Sepsis Recent Fever Within 48 Hours No Sepsis New/Unexplained Change in Mental Status No Sepsis Action Taken by Nursing No Action Required Home Medications Current Medication List: was personally reviewed by me Laboratory Data Attestation: I reviewed the patient's lab results. 02/26/24 22:04 02/26/24 22:04 Lab Results 02/26/24 Range/Units 22:04 WBC 1.12 L (4.8-10.8) K/ul RBC 3.09 L (4.20-5.40) M/uL Hgb 10.0 L (12.0-16.0) g/dl Hct 29.2 L (37.0-47.0) % MCV 94.5 (80.0-100.0) fL MCH 32.4 (25.0-34.0) pg MCHC 34.2 (32.0-36.0) g/dL RDW Std Deviation 49.7 H (36.4-46.3) fL RDW Coeff of Mini 15.4 H (11.5-14.5) % Plt Count 51 L (130-400) K/uL MPV 10.8 (9.4-12.4) fL Immature Gran % (Auto) 1.8 % Neut % (Auto) 50.0 % Lymph % (Auto) 9.8 % [place] % (Auto) 38.4 % Eos % (Auto) 0.0 % Baso % (Auto) 0.0 % Neut # (Auto) 0.56 L* (1.40-6.50) K/uL Lymph # (Auto) 0.11 L (1.20-3.40) K/uL [place] # (Auto) 0.43 (0.11-0.59) K/uL Eos # (Auto) 0.00 (0.00-0.50) K/uL Baso # (Auto) 0.00 (0.00-0.20) K/uL Immature Gran # (Auto) 0.02 (0.01-0.20) K/uL Toxic Granulation 1+ Dohle Bodies 1+ Ovalocytes 1+ Sodium 137 (136-145) mmol/L Potassium 3.8 (3.5-5.1) mmol/L Chloride 107 (98-107) mmol/L Carbon Dioxide 24 (21-32) mmol/L Anion Gap 6 (3-11) BUN 34 H (6-23) mg/dl Creatinine 1.32 H (0.6-1.2) mg/dl Est Cr Clr Drug Dosing 31.8 ml/min Est GFR ( Amer) 44.1 ml/min Est GFR (Non-Af Amer) 38.0 ml/min BUN/Creatinine Ratio 25.8 H (10-20) Glucose 127 H (70-99(Fasting)) mg/dl Calcium 7.8 L (8.6-10.3) mg/dl Phosphorus 3.1 (2.5-4.9) mg/dl Magnesium 1.6 L (1.7-2.4) mg/dl Total Bilirubin 0.5 (0.2-1.0) mg/dl AST 10 L (13-39) U/L ALT 6 L (7-52) U/L Alkaline Phosphatase 37 (34-104) U/L Total Protein 5.4 L (6.0-8.3) gm/dl Albumin 2.6 L (3.4-5.0) gm/dl Globulin 2.8 (2.5-4.0) gm/dl Albumin/Globulin Ratio 0.9 (0.9-2) TSH 3.239 (0.300-4.500) uIu/ml Administered Medications Discontinued Medications Sodium Chloride (Nss) 1,000 mls @ 999 mls/hr IV .Q1H1M CRIS Stop: 02/26/24 23:00 Last Admin: 02/26/24 22:27 Dose: 999 mls/hr Documented By: LEN Calcium Gluconate () 1,000 mg in 60 mls @ 240 mls/hr IV NOW STA Stop: 02/26/24 23:47 Last Admin: 02/26/24 23:54 Dose: 240 mls/hr Documented By: SAIMA Ondansetron HCl (Ondansetron Inj 2 Mg/Ml 2 Ml Vial) 4 mg IV NOW STA Stop: 02/26/24 21:57 Last Admin: 02/26/24 23:10 Dose: Not Given Documented By: [facility] Discharge Plan Visit Data Chief Complaint: Diarrhea Stated Complaint: UNCONTROLLED DIARRHEA ED Provider: Martin Sal Discharge Problem: Diarrhea, Hypomagnesemia, Pancytopenia, Hypocalcemia, Excoriation of buttock Forms Stand Alone Forms: [facility] Prescriptions Prescriptions: No Action ondansetron HCl 8 mg tablet 8 mg PO Q8H PRN (Reason: Nausea) prochlorperazine maleate [Compazine] 10 mg tablet 10 mg PO Q6H PRN (Reason: Nausea And Vomiting) gabapentin 100 mg capsule 100 mg PO TID Eliquis 2.5 mg Tablet 2.5 mg PO Q12H atenolol 100 mg tablet 100 mg PO .DAILY @ 1130 meclizine 25 mg tablet 25 mg PO BID PRN (Reason: Vertigo) silver sulfadiazine [Silvadene] 1 % cream 1 applic topical BID Qty: 85 3RF Rx Instructions: apply a 1.5 mm thickness Sween Cream Cream 1 applic TOPICAL 6XD PRN (Reason: Skin Irritation) pantoprazole 40 mg tablet,delayed release (DR/EC) 40 mg PO QAM diphenoxylate-atropine [Lomotil] 2.5-0.025 mg tablet 1 tab PO Q6H PRN (Reason: diarrhea) Qty: 12 0RF Referrals Referrals: Burke Ospina [Primary Care Provider] - Discharge Problem: Diarrhea Qualifiers: Diarrhea type: unspecified type Qualified Code(s): R19.7 - Diarrhea, unspecified Excoriation of buttock Qualifiers: Encounter type: initial encounter Qualified Code(s): S30.810A - Abrasion of lower back and pelvis, initial encounter
[2024-02-26] MEDS: SODIUM CHLORIDE 0.9% 1,000 ML IV SCH (22:27)
[2024-02-26 22:50] LABS: Hematocrit (blood only) 29.2 % (37.0-47.0); Mean Corpuscular Hemoglobin 32.4 pg (25.0-34.0); Mean Corpuscular Hgb Conc 34.2 g/dL (32.0-36.0); Mean Corpuscular Volume 94.5 fL (80.0-100.0); Mean Platelet Volume 10.8 fL (9.4-12.4); Platelet Count 51 K/uL (130-400); RDW Coefficient of Variation 15.4 % (11.5-14.5); RDW Standard Deviation 49.7 fL (36.4-46.3); Red Blood Count 3.09 M/uL (4.20-5.40); White Blood Count 1.12 K/ul (4.8-10.8)
[2024-02-26 23:02] LABS: Albumin Globulin Ratio 0.9 (0.9-2); Albumin Level 2.6 gm/dl (3.4-5.0); BUN Creatinine Ratio 25.8 (10-20); Bilirubin,Total 0.5 mg/dl (0.2-1.0); Calcium 7.8 mg/dl (8.6-10.3); Creatinine Clr Calc Pharmacy 31.8 ml/min; Est GFR (African American) 44.1 ml/min; Globulin 2.8 gm/dl (2.5-4.0); Magnesium 1.6 mg/dl (1.7-2.4); Phosphorus 3.1 mg/dl (2.5-4.9); Potassium 3.8 mmol/L (3.5-5.1); Total Protein 5.4 gm/dl (6.0-8.3)
[2024-02-26 23:08] LABS: Dohle Bodies 1+; Immature Granulocytes # (auto) 0.02 K/uL (0.01-0.20); Immature Granulocytes % (auto) 1.8 %; Lymphocytes # (auto) 0.11 K/uL (1.20-3.40); Lymphocytes % (auto) 9.8 %; Monocytes # (auto) 0.43 K/uL (0.11-0.59); Monocytes % (auto) 38.4 %; Neutrophils # (auto) 0.56 K/uL (1.40-6.50); Ovalocytes 1+; Toxic Granulation 1+
[2024-02-26] MEDS: ONDANSETRON INJ 2 MG/ML 2 ML VIAL IV STA (23:10)
[2024-02-26 23:17] LABS: Thyroid Stimulating Hormone 3.239 uIu/ml (0.300-4.500)
[2024-02-26] MEDS: CALCIUM GLUCONATE 1,000 MG/60 ML BAG IV STA (23:54)
[2024-02-27] MEDS: MAGNESIUM SULFATE / D5W 1 GM/100 ML BAG IV SCH (00:21)
--- NOTE | 2024-02-27 00:42 | History & Physical Report ---
Date of Service February 27, 2024 Assessment & Plan (1) Diarrhea: Plan: 79yo female with history of squamous cell carcinoma of the buttock presenting with two days of profuse, watery diarrhea. Patient is afebrile, hemodynamically stable and non-toxic in appearance. She has some mild electrolyte abnormality to include hypomagnesemia as well as hypocalcemia. SHENG which is improving. Patient is pancytopenic with moderate neutropenia (calculated ANC of 580 - WBC=1.12, %bands=1.8, %neutrophils=50). Findings on CT as above, suggestive of enterocolitis. Consider neutropenic enterocolitis? Patient DOES NOT appear to be acutely ill or toxic. She is afebrile as well -Admit to medical -Check stool PCR and c. diff -Check lactate -Antibiotic coverage with Cefepime and Flagyl -Hematology consultation appreciated -Will avoid Lomotil and anti-diarrheals for now until infectious workup returns (2) Neutropenia: Plan: Patient with pancytopenia, moderate neutropenia. She is afebrile, non-toxic in appearance. Likely secondary to chemotherapy. -Follow cultures sent from ER -Check UA -Maintain neutropenic precautions -Heme/Onc consultation appreciated -CBC with diff in AM -Avoid chemo-ppx for DVT with thrombocytopenia Plt of 51 (3) Excoriation of buttock: Plan: Patient receiving radiation therapy, frequent diarrhea over the last two days -Wound care q shift -Continue silver sufadiazine cream at home dose -Turn and position q 2 hours for skin protection -May benefit from barrier cream (4) Hypomagnesemia: Plan: Mg=1.6 -2gm ordered -repeat labs in AM with continued repletion as needed Plan DVT - Bilateral LE venous doppler performed on 02/11/24 with venous thrombus within the left gastrocnemius vein which extends for 5.4 cm in length -Continue Apixaban 2.5mg po BID Hypertension - blood pressure stable -Continue Atenolol 100mg po daily History of Present Illness Chief Complaint: diarrhea Primary Care Provider: Burke Ospina Debbie Milan is a pleasant 79yo female with history of squamous cell carcinoma of the anal canal diagnosed 11/02/2023. She has received chemotherapy with 5-FU (last treatment 2 weeks ago per patient), receives daily radiation therapy. She presents today with ongoing watery diarrhea. Patient was seen in the ER 02/25/24 with similar complaint. Her diarrhea started on the afternoon of 02/25/24. She reports 5-6 episodes of explosive, watery diarrhea. She had incontinence, unable to control her bowels. During her ER visit, she had a CT scan of the abdomen which revealed findings suggestive of enterocolits. Patient was ultimately discharged home. Her diarrhea returned today appx 1 hour after she ate some chicken-dumpling soup. She again had 5-6 episodes of watery, non-bloody/non-mucoid diarrhea. She has known hemorrhoids and reports consistent BRBPR on the toilet paper after wiping - no clots or increase in this. No recent antibiotic use. No recent travel. Per chart review, patient has had diarrhea in the past and has been given Immodium No additional complaints at this time. She denies fever, chills, shakes or sweats. Denies abdominal pain, cramping or distention. No nausea or vomiting No CP, cough, SOB. In the ER she is afebrile, HD stable and non-toxic in appeaerance ER Course: Cefepime 2gm Flagyl 500mg Magnesium 1gm Calcium gluconate 1gm NSS x 1L Allergies Allergy/AdvReac Type Severity Reaction Status Date / Time No Known Allergies Allergy Verified 02/26/24 22:04 Home Medications Medication Instructions Recorded Confirmed Type atenolol 100 mg tablet 100 mg PO .DAILY @ 1130 07/02/23 02/26/24 History meclizine 25 mg tablet 25 mg PO BID PRN Vertigo 07/02/23 02/26/24 History pantoprazole 40 mg tablet,delayed 40 mg PO QAM 01/11/24 02/26/24 History release vitamin A and D (Sween Cream 1 applic topical 6XD PRN Skin 01/11/24 02/26/24 History topical) Irritation ondansetron HCl 8 mg tablet 8 mg PO Q8H PRN Nausea 01/17/24 02/26/24 History prochlorperazine maleate 10 mg 10 mg PO Q6H PRN Nausea And 01/17/24 02/26/24 History tablet (Compazine) Vomiting silver sulfadiazine 1 % topical 1 applic topical BID irritation of 01/24/24 02/26/24 Rx cream (Silvadene) anal area #85 grams gabapentin 100 mg capsule 100 mg PO TID 02/07/24 02/26/24 History apixaban 2.5 mg tablet (Eliquis) 2.5 mg PO Q12H 02/14/24 02/26/24 History diphenoxylate-atropine 2.5 1 tab PO Q6H PRN diarrhea #12 tabs 02/20/24 02/26/24 Rx mg-0.025 mg tablet (Lomotil) Past Med/Surg History Problem List (Updated 02/27/24 @ 01:13 by Shruti White DO) Excoriation of buttock (Acute) Hypocalcemia (Acute) Pancytopenia (Acute) Thrombocytopenia (Acute) Enterocolitis (Acute) SHENG (acute kidney injury) (Acute) Neutropenia (Acute) Leukopenia (Acute) Diarrhea (Acute) Anal squamous cell carcinoma (Acute) Hypomagnesemia (Acute) Rectal bleeding (Acute) Rectal mass Abnormal weight loss Medical History Primary squamous cell carcinoma of anal canal Fatigue Hemorrhoids Allergic rhinitis Seasonal allergies Loose stools Hx of cervical cancer Hx 50 years ago, no chemo or radiation Hx of vertigo Intermittent, no recent issues Hypertension Surgical History Port-A-Cath in place (01/13/24) Insertion of Access Port with Fluoroscopy-Left Subclavian(Left) - Josh Goel DO H/O flexible sigmoidoscopy 11/02/23, [facility] History of esophagogastroduodenoscopy Hx of colonoscopy 10/25/23 Hx of breast lump removal benign Hx of vein stripping H/O: hysterectomy Family History Daughter Ulcerative colitis Denies family history of Crohn's disease Colorectal cancer Social History Smoking Status: Current some day smoker Tobacco Type: Cigarettes Age Started Using Tobacco: 13; packs per day: 0.5; Cigarettes Per Day: 5-7 PER DAY- advised on policy; Second Hand Exposure: No; Do You Dip or Chew Tobacco: No; Hx Alcohol Use: No Hx Substance Use: No Preferred Language: Gabonese Communication Ability: Effective Roller Embosser Required: No Beliefs That Will Affect Care: None Current Living Situation: Spouse Feels Safe at Home: Yes Diet: regular during the past year weight has: decreased > 10 lbs Assistive Devices: Denture - Upper, Denture - Lower and Glasses Review of Systems Review of Systems: All systems reviewed & are unremarkable except as noted in HPI & below Physical Exam Physical Exam: General: patient resting comfortably, NAD, non-toxic in appearance, AA&O x 4 Skin: warm, dry, intact, no rashes or lesions HEENT: NC/AT, PERRL, EOMI, anicteric sclera, conjunctiva without injection, external ear normal to inspection and nontender, nares patent, moist mucus membranes, dentition intact, no oropharyngeal lesions, neck supple, trachea midline, no LAD, no thyromegaly, no JVD Heart: +S1/S2, regular, no m/r/g Lungs: equal air entry bilaterally, scattered end-expiratory wheezing, rhonchi present cleared by coughing Abd: +BS, soft, NT/ND, no masses/organomegaly/ascites Ext: warm, 2+ pulses in UE/LE bilaterally, no clubbing/cyanosis or edema Neuro: nonfocal, patient AA&O x 4, speech intact, no facial droop, moving all extremities on command with equal strength 5/5 Results & Data Results & Data Vital Signs (Past 12 Hours) Vital Signs Temp Pulse Pulse Resp BP BP Pulse Ox 02/27/24 00:00 63 23 131/66 96 02/26/24 22:45 56 L 02/26/24 21:57 36.6 C 51 L 24 124/63 97 O2 Del Method 02/27/24 00:00 Room Air 02/26/24 22:45 02/26/24 21:57 Room Air Laboratory Results Laboratory Results WBC 1.12 K/ul (4.8-10.8) L 02/26/24 22:04 RBC 3.09 M/uL (4.20-5.40) L 02/26/24 22:04 Hgb 10.0 g/dl (12.0-16.0) L 02/26/24 22:04 Hct 29.2 % (37.0-47.0) L 02/26/24 22:04 MCV 94.5 fL (80.0-100.0) 02/26/24 22:04 MCH 32.4 pg (25.0-34.0) 02/26/24 22:04 MCHC 34.2 g/dL (32.0-36.0) 02/26/24 22:04 RDW Std Deviation 49.7 fL (36.4-46.3) H 02/26/24 22:04 RDW Coeff of Mini 15.4 % (11.5-14.5) H 02/26/24 22:04 Plt Count 51 K/uL (130-400) L 02/26/24 22:04 MPV 10.8 fL (9.4-12.4) 02/26/24 22:04 Immature Gran % (Auto) 1.8 % 02/26/24 22:04 Neut % (Auto) 50.0 % 02/26/24 22:04 Lymph % (Auto) 9.8 % 02/26/24 22:04 [place] % (Auto) 38.4 % 02/26/24 22:04 Eos % (Auto) 0.0 % 02/26/24 22:04 Baso % (Auto) 0.0 % 02/26/24 22:04 Neut # (Auto) 0.56 K/uL (1.40-6.50) L* 02/26/24 22:04 Lymph # (Auto) 0.11 K/uL (1.20-3.40) L 02/26/24 22:04 [place] # (Auto) 0.43 K/uL (0.11-0.59) 02/26/24 22:04 Eos # (Auto) 0.00 K/uL (0.00-0.50) 02/26/24 22:04 Baso # (Auto) 0.00 K/uL (0.00-0.20) 02/26/24 22:04 Immature Gran # (Auto) 0.02 K/uL (0.01-0.20) 02/26/24 22:04 Toxic Granulation 1+ 02/26/24 22:04 Dohle Bodies 1+ 02/26/24 22:04 Ovalocytes 1+ 02/26/24 22:04 Sodium 137 mmol/L (136-145) 02/26/24 22:04 Potassium 3.8 mmol/L (3.5-5.1) 02/26/24 22:04 Chloride 107 mmol/L (98-107) 02/26/24 22:04 Carbon Dioxide 24 mmol/L (21-32) 02/26/24 22:04 Anion Gap 6 (3-11) 02/26/24 22:04 BUN 34 mg/dl (6-23) H 02/26/24 22:04 Creatinine 1.32 mg/dl (0.6-1.2) H 02/26/24 22:04 Est Cr Clr Drug Dosing 31.8 ml/min 02/26/24 22:04 Est GFR ( Amer) 44.1 ml/min 02/26/24 22:04 Est GFR (Non-Af Amer) 38.0 ml/min 02/26/24 22:04 BUN/Creatinine Ratio 25.8 (10-20) H 02/26/24 22:04 Glucose 127 mg/dl (70-99(Fasting)) H 02/26/24 22:04 Calcium 7.8 mg/dl (8.6-10.3) L 02/26/24 22:04 Phosphorus 3.1 mg/dl (2.5-4.9) 02/26/24 22:04 Magnesium 1.6 mg/dl (1.7-2.4) L 02/26/24 22:04 Total Bilirubin 0.5 mg/dl (0.2-1.0) 02/26/24 22:04 AST 10 U/L (13-39) L 02/26/24 22:04 ALT 6 U/L (7-52) L 02/26/24 22:04 Alkaline Phosphatase 37 U/L (34-104) 02/26/24 22:04 Total Protein 5.4 gm/dl (6.0-8.3) L 02/26/24 22:04 Albumin 2.6 gm/dl (3.4-5.0) L 02/26/24 22:04 Globulin 2.8 gm/dl (2.5-4.0) 02/26/24 22:04 Albumin/Globulin Ratio 0.9 (0.9-2) 02/26/24 22:04 TSH 3.239 uIu/ml (0.300-4.500) 02/26/24 22:04 Diagnostic Findings [place], [place] [phone] CT Scan Report Patient: DEBBIE MILAN Admit Date: 02/25/24 MR#: [id number] Address[address]: [address] Acct ID:[id number] Address2: Date: 1945 [facility] Zip: [place] [address] Age: 79 Location: ED Sex: F Room/Bed: Att Phy: Diagnosis: Diarrhea, Cancer [place] Phy: Burke Ospina D.O. Service Date: 02/26/24 [facility] Phy: Interpreting Phy: Jsoh Izquierdo MDAdmit Phy: Ordering Phy: Helena Perera MD cc: ~ Exam(s): CT ABDOMEN + PELVIS With Contrast IV Amt: 90 mls optiray 320 EXAM: CT Abdomen and Pelvis With Intravenous Contrast CLINICAL HISTORY: diarrhea. TECHNIQUE: Axial computed tomography images of the abdomen and pelvis with intravenous contrast. CTDI is 8.44 mGy and DLP is 385.39 mGy-cm. Automated exposure control was utilized for the study. A dose lowering technique was utilized adhering to the principles of ALARA. CONTRAST: Patient received 90 mls optiray 320 of IV contrast COMPARISON: No relevant prior studies available. FINDINGS: Lung bases: The lungs appear hyperexpanded, similar to the previous examination. No consolidation. ABDOMEN: Liver: Unremarkable. No mass. Gallbladder and bile ducts: Unremarkable. No calcified stones. No ductal dilation. Pancreas: Unremarkable. No mass. No ductal dilation. Spleen: Unremarkable. No splenomegaly. Adrenals: Unremarkable. No mass. Kidneys and ureters: The kidneys are similar to the previous examination with predominantly hypoattenuating cysts noted bilaterally. There is a stable appearing relatively hyperattenuating ovoid cortical structure involving the posterior lateral midpole right kidney with internal Hounsfield units of 86, similar to the previous examination. A similar structure is noted along the inferolateral left kidney with similar density. The structure is stable, measuring 19 mm. No hydronephrosis. Stomach and bowel: Stomach is predominantly decompressed with only minimal fluid in the stomach. Asymmetric hyperenhancement of the gastric mucosa in the distal body and pyloric channel is new from the previous exam. No evidence for bowel obstruction. Subtle asymmetric abnormal mucosal thickening involving several small bowel loops in the left lateral abdomen is suggested. Mucosal prominence of the decompressed sigmoid colon is more prominent than on the previous examination. PELVIS: Appendix: No findings to suggest acute appendicitis. Bladder: Unremarkable. No mass. Reproductive: Unremarkable as visualized. ABDOMEN and PELVIS: Intraperitoneal space: Mild free fluid in the abdomen and pelvis is new from the previous examination. No loculation. No free air. Bones/joints: No acute fracture. No dislocation. Soft tissues: Unremarkable. Vasculature: Moderate eccentric atheromatous changes involving the abdominal aorta which is mildly ectatic with undulating fusiform changes. No dissection or significant aneurysm. Lymph nodes: Unremarkable. No enlarged lymph nodes. IMPRESSION: 1. Stomach is predominantly decompressed with only minimal fluid in the stomach. Asymmetric hyperenhancement of the gastric mucosa in the distal body and pyloric channel is new from the previous exam. Distal gastritis is not excluded. 2. No evidence for bowel obstruction. Subtle asymmetric abnormal mucosal thickening involving several small bowel loops in the left lateral abdomen is suggested. Mucosal prominence of the decompressed sigmoid colon is more prominent than on the previous examination. Findings suggest enterocolitis. 3. The previously noted asymmetric mucosal thickening of the distal anorectal region is less prominent but still measures up to 1 cm in diameter. 4. Mild free fluid in the abdomen and pelvis is new from the previous examination. No loculation. This is presumed reactive from the bowel process. 5. The kidneys are similar to the previous examination with predominantly hypoattenuating cysts noted bilaterally. There is a stable appearing relatively hyperattenuating ovoid cortical structure involving the posterior lateral midpole right kidney with internal Hounsfield units of 86, similar to the previous examination. A similar structure is noted along the inferolateral left kidney with similar density. The structure is stable, measuring 19 mm. ACR White Paper guidelines (Hertimmy, et al. JACR 2018; 15(2):264-273) recommend nonemergent MRI or CT without and with intravenous contrast, if not previously evaluated. Electronically signed by: Josh Izquierdo MD 02/26/24 03:44 AM Dictated: 02/26/24 0344 Transcribed: 02/26/24 0344 Code Status & VTE Plan VTE Prophylaxis Plan VTE Prophylaxis will be ordered: Yes PG Care Time/CCT Total # of Minutes Spent Total Time Spent with Patient: Total time spent is greater than 50% in coordination of care (as documented) at patient's floor/unit and/or counseling patient: Coding Level of Care Code 99048 INT INP/OBS CARE MIN Diagnoses Diarrhea R19.7 Diarrhea type: unspecified type Neutropenia D70.9 Excoriation of buttock S30.810A Encounter type: initial encounter Hypomagnesemia E83.42 (1) Diarrhea Diarrhea type: unspecified type Qualified Code(s): R19.7 - Diarrhea, unspecified (3) Excoriation of buttock Encounter type: initial encounter Qualified Code(s): S30.810A - Abrasion of lower back and pelvis, initial encounter
[2024-02-27] MEDS: metroNIDAZOLE 500 MG/100 ML BAG IV STA (00:45)
[2024-02-27] MEDS: CEFEPIME 2,000 MG/20 ML VIAL IV STA (00:46)
[2024-02-27 02:37] LABS: Magnesium 1.9 mg/dl (1.7-2.4)
[2024-02-27] MEDS: LACTATED RINGER'S 1,000 ML IV SCH ×2 (03:02→13:10)
[2024-02-27] MEDS: ALBUTEROL 0.083% NEBU SOLN 3 ML VIAL NEB STA (03:20)
[2024-02-27] MEDS: BUTT PASTE (ZINC OXIDE 16%) 171 APPLN/57 GM JAR EXT PRN (06:17)
[2024-02-27] MEDS: HYDROCORTISONE HC 2.5% CRM 30GM TUBE EXT PRN (06:17)
--- NOTE | 2024-02-27 07:22 | Hospitalist Progress Note ---
Date of Service February 27, 2024 Assessment & Plan (1) Diarrhea: Plan: 79yo female with history of squamous cell carcinoma of the buttock presenting with two days of profuse, watery diarrhea. #Watery Diarrhea -ddx includes infectious gastroenteritis vs radiation enterocolitis -Patient is pancytopenic with moderate neutropenia (calculated ANC of 580 - WBC=1.12, %bands=1.8, %neutrophils=50). Last chemo 2 weeks ago. Afebrile. -Findings on CT as above, suggestive of enterocolitis. -stool PCR and c. diff pending -on admission started on Cefepime and Flagyl - since pt afebrile and diarrhea quickly improved on IVF, less concern for infection. Will only resume cefepime for UTI as below. Trend CRP. 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 Pt follows will Dr. Reece who will be saxophone assembler 02/28 - will consider formal consult at that time. -Will avoid Lomotil and anti-diarrheals for now until infectious workup returns (2) Neutropenia: Plan: Patient with pancytopenia, moderate neutropenia. She is afebrile, non-toxic in appearance. Likely secondary to chemotherapy. -neutropenic precautions (3) Excoriation of buttock: Plan: Patient receiving radiation therapy -Wound care q shift -Continue silver sufadiazine cream at home dose -Turn and position q 2 hours for skin protection -May benefit from barrier cream (4) DVT (deep venous thrombosis): Plan: Bilateral LE venous doppler performed on 02/11/24 with venous thrombus within the left gastrocnemius vein which extends for 5.4 cm in length -Continue Apixaban 2.5mg po BID (5) Hypertension: Plan: stable, continue Atenolol 100mg po daily (6) Asymptomatic bacteriuria: Plan: UA appears infectious and with symptoms. Cont. cefepime. Urine cx pending. (7) Hypoxia: Plan: New onset O2 requirement. CXR with bilateral lower opacity. However, CT A/P the previous day without any consolidation in lower lung ritter. It did however show some hyperinflation. Would recommend outpatient PFTs to assess for COPD. Procal neg Likely atelectasis - incentive spirometry Duoneb prn Plan DVT ppx: Eliquis FEN/GI: regular Code Status: full Dispo: med surg Admission and Anticipated Discharge Date Admission Date: February 27, 2024 Supervising Physician Co-Signing Physician Notes I personally examined the patient and verified all perla points of history and exam, discussed case, and agree with decision making with Dr Moss diarrhea doing better. Feeling better. Not really very short of breathnotes she does not normally use oxygen at home, but just quit smoking at the beginning of her cancer journey. Her daughter has been sick with some sort of respiratory infection and a cough. Leg swelling is the same as it has been since she started chemo. She is hungry but food does not taste well due to chemo. Urinary frequency and dysuria. Vitals noted, in general she is awake and alert pleasant no distress. HEENT normocephalic atraumatic mucous membranes moist. Lungs are really very quiet but overall clear she maybe has 1 faint crackle in the right lung base and even that I am not entirely sure is true. No other rales rhonchi or wheezes no accessory muscle use good effort. (Chest x-ray to me looks hyperinflated but without any acute findingsradiology report appreciated). Abdomen soft nondistended nontender no masses organomegaly no guarding rebound or rigidity. Bilateral lower extremities about 1+ edema which she notes is chronic and unchanged since starting chemo. Diarrheasuspect chemo related more likely than radiation related. Fortunately with further evaluation it seems neutropenic enterocolitis is exceedingly unlikely. Diarrhea has improved nicelyI wonder if some of it is simply from getting her hydrated. Could give trial to fiber supplementation if diarrhea worsens/recurs. Ongoing supportive care. Follow p.o. intake. UTIwhile she does not appear to obviously need antibiotics for her colitis, she does appear to have cystitiscontinue antibiotics and follow cultures mild hypoxiaI do not see PFTs anywhere, but I would be highly suspicious of COPD. She really does not feel bad from a respiratory distress standpointcontinue inhalers, supplemental oxygen (especially given how little oxygen she is truly needing) serial exams and time. Anticoagulated Subjective Seen at bedside this morning. No diarrhea/BM since yesterday. Does feel a bit better but still with abdominal discomfort. Has had urinary frequency and dysuria. Not much of an appetite. Some fatigue. Denies fever, cp, sob. Review of Systems Review of Systems: All systems reviewed & are unremarkable except as noted in HPI & below Physical Exam Physical Exam: Constitutional: Well-developed, well-nourished patient, in no acute distress, pleasant and normal affect, intact memory. Vitals as above. HEENT: No scleral injection or discharge. Moist mucous membranes. Neck: Supple without lymphadenopathy or thyromegaly. Trachea midline. Lungs: equal air entry bilaterally, +crackle R lower base Cardiac: Regular rate and rhythm. No murmurs. No lower extremity edema. 2+ distal peripheral pulses. Abdomen: Soft and nondistended.+abdominal discomfort to palpation. No guarding. No hepatosplenomegaly. MSK: No cyanosis or clubbing. Skin: No rashes, warm, dry. Neurologic: no focal deficits Results & Data Results & Data Vital Signs (Past 12 Hours) Vital Signs Temp Pulse Pulse Pulse Resp BP BP 02/27/24 03:21 51 L 16 02/27/24 03:00 02/27/24 02:49 21 02/27/24 02:30 02/27/24 02:30 36.5 C 66 20 142/66 H 02/27/24 01:43 36.5 C 66 20 142/66 H 02/27/24 01:00 56 L 21 131/62 02/27/24 00:00 63 23 131/66 02/26/24 22:45 56 L 02/26/24 21:57 36.6 C 51 L 24 124/63 Pulse Ox O2 Del Method O2 Flow Rate 02/27/24 03:21 99 Nasal Cannula 1 02/27/24 03:00 Nasal Cannula 2 02/27/24 02:49 97 Nasal Cannula 2 02/27/24 02:30 Room Air, Nasal Cannula 2 02/27/24 02:30 92 Room Air 02/27/24 01:43 92 Room Air 02/27/24 01:00 94 Room Air 02/27/24 00:00 96 Room Air 02/26/24 22:45 02/26/24 21:57 97 Room Air Laboratory Results 02/27/24 02/26/24 Range/Units 02:08 22:04 WBC 1.12 L (4.8-10.8) K/ul RBC 3.09 L (4.20-5.40) M/uL Hgb 10.0 L (12.0-16.0) g/dl Hct 29.2 L (37.0-47.0) % MCV 94.5 (80.0-100.0) fL MCH 32.4 (25.0-34.0) pg MCHC 34.2 (32.0-36.0) g/dL RDW Std Deviation 49.7 H (36.4-46.3) fL RDW Coeff of Mini 15.4 H (11.5-14.5) % Plt Count 51 L (130-400) K/uL MPV 10.8 (9.4-12.4) fL Immature Gran % (Auto) 1.8 % Neut % (Auto) 50.0 % Lymph % (Auto) 9.8 % [place] % (Auto) 38.4 % Eos % (Auto) 0.0 % Baso % (Auto) 0.0 % Neut # (Auto) 0.56 L* (1.40-6.50) K/uL Lymph # (Auto) 0.11 L (1.20-3.40) K/uL [place] # (Auto) 0.43 (0.11-0.59) K/uL Eos # (Auto) 0.00 (0.00-0.50) K/uL Baso # (Auto) 0.00 (0.00-0.20) K/uL Immature Gran # (Auto) 0.02 (0.01-0.20) K/uL Toxic Granulation 1+ Dohle Bodies 1+ Ovalocytes 1+ Sodium 137 (136-145) mmol/L Potassium 3.8 (3.5-5.1) mmol/L Chloride 107 (98-107) mmol/L Carbon Dioxide 24 (21-32) mmol/L Anion Gap 6 (3-11) BUN 34 H (6-23) mg/dl Creatinine 1.32 H (0.6-1.2) mg/dl Est Cr Clr Drug Dosing 31.8 ml/min Est GFR ( Amer) 44.1 ml/min Est GFR (Non-Af Amer) 38.0 ml/min BUN/Creatinine Ratio 25.8 H (10-20) Glucose 127 H (70-99(Fasting)) mg/dl Lactate 0.9 (0.4-2.0) mmol/L Calcium 7.8 L (8.6-10.3) mg/dl Phosphorus 3.1 (2.5-4.9) mg/dl Magnesium 1.9 1.6 L (1.7-2.4) mg/dl Total Bilirubin 0.5 (0.2-1.0) mg/dl AST 10 L (13-39) U/L ALT 6 L (7-52) U/L Alkaline Phosphatase 37 (34-104) U/L Total Protein 5.4 L (6.0-8.3) gm/dl Albumin 2.6 L (3.4-5.0) gm/dl Globulin 2.8 (2.5-4.0) gm/dl Albumin/Globulin Ratio 0.9 (0.9-2) TSH 3.239 (0.300-4.500) uIu/ml Resident Activity Tracking Resident Involvement: Resident Care Provided Care Provided: Adult Hospital Medicine (1) Diarrhea Diarrhea type: unspecified type Qualified Code(s): R19.7 - Diarrhea, unspecified (3) Excoriation of buttock Encounter type: initial encounter Qualified Code(s): S30.810A - Abrasion of lower back and pelvis, initial encounter
[2024-02-27] MEDS: PANTOprazole 40 MG TAB PO SCH (09:20)
[2024-02-27] MEDS: GABAPENTIN 100 MG CAP PO SCH (09:20)
[2024-02-27] MEDS: APIXABAN 2.5 MG TAB PO SCH (09:20)
[2024-02-27] MEDS: SILVER SULFADIAZINE 1% CR 50 GM JAR TOP SCH (09:27)
[2024-02-27] MEDS: metroNIDAZOLE 500 MG/100 ML BAG IV SCH (09:27)
[2024-02-27] MEDS: ACETAMINOPHEN 325 MG TAB PO PRN (09:32)
[2024-02-27] MEDS: CEFEPIME 2,000 MG in SYRINGE 0 ML IV SCH ×2 (11:05→22:34)
[2024-02-27] MEDS: ATENOLOL 50 MG TABLET PO SCH (11:06)
[2024-02-27 12:11] LABS: Appearance Urine Turbid (Clear); Bacteria Urine Automated 3+ (None Seen); Bilirubin Urine Negative (Negative); Blood Urine 3+ (Negative); Color Urine Yellow; Epithelial Cell Urine Auto 0-2 /hpf (0-2); Glucose Urine UA Negative (Negative); Granular Casts Urine Present /lpf (None Prsent); Hyaline Casts Urine Present /lpf (None Presnt); Ketones Urine Negative (Negative); Leukocyte Esterase Urine 3+ (Negative); Nitrite Urine Negative (Negative); Protein Urine 1+ (Negative); Specific Gravity Urine 1.024 (1.000-1.030); Urobilinogen Urine Negative (Negative); WBC Urine Automated >50 /hpf (0-5); pH Urine 5.5 (4.5-7.5)
[2024-02-27 12:39] LABS: C Reactive Protein 3.48 mg/dl (0-0.5)
--- NOTE | 2024-02-27 12:50 | XRay Report ---
XR chest 1V portable CLINICAL HISTORY: hypoxia TECHNIQUE: Single frontal radiograph of the chest was obtained. Comparison: Comparison is made to chest radiograph 02/11/2024 FINDINGS: Left portacatheter is seen. Calcified aortic knob is seen. Left retrocardiac and right lower lung opa city is seen. No evidence of pleural effusion or pneumothorax. IMPRESSION: Bilateral lower lung airspace opacity. This may represent atelectasis, pneumonia, and/or aspiration. ACT 112: Negative or not required by law. Electronically signed by: Kennedy Faye M.D. 02/27/2024 12:48 PM
[2024-02-27 14:53] LABS: Adenovirus F 40/41 PCR Not Detected (NotDetected); Astrovirus PCR Not Detected (NotDetected); Campylobacter PCR Not Detected (NotDetected); Cryptosporidium PCR Not Detected (NotDetected); Cyclospora cayetanensis PCR Not Detected (NotDetected); Entamoeba histolytica PCR Not Detected (NotDetected); Enteroaggregative E.coli(EAEC) Not Detected (NotDetected); Enteropathogenic E.coli (EPEC) Not Detected (NotDetected); Enterotoxigenic E.coli (ETEC) Not Detected (NotDetected); Giardia lamblia PCR Not Detected (NotDetected); Norovirus GI/GII PCR Not Detected (NotDetected); Plesiomonas shigelloides PCR Not Detected (NotDetected); Rotavirus A PCR Not Detected (NotDetected); Salmonella PCR Not Detected (NotDetected); Sapovirus PCR Not Detected (NotDetected); Shiga-like Toxin E.coli (STEC) Not Detected (NotDetected); Shigella/Enteroinvasive E.coli Not Detected (NotDetected); Vibrio cholerae PCR Not Detected (NotDetected); Vibrio species PCR Not Detected (NotDetected); Yersinia enterocolitica PCR Not Detected (NotDetected)
--- NOTE | 2024-02-27 16:55 | Billing Data ---
Date of Service February 27, 2024 Coding Level of Care Code 18075 SUB INP/OBS CARE
[2024-02-27] MEDS: ALBUT/IPRATROP 3MG/0.5MG NEB 3 ML VIAL NEB PRN (21:13)
--- NOTE | 2024-02-27 21:46 | Electrocardiogram Report ---
Test Reason : Blood Pressure : / mmHG Vent. Rate : 054 BPM Atrial Rate : 054 BPM P-R Int : 140 ms QRS Dur : 078 ms QT Int : 462 ms P-R-T Axes : 075 013 059 degrees QTc Int : 438 ms Sinus bradycardia Otherwise normal ECG When compared with ECG of 20-FEB-2024 21:36, Premature ventricular complexes are no longer Present Criteria for Septal infarct are no longer Present Confirmed by Johnny Arteaga ([id number]) on 02/27/2024 9:46:18 PM Referred By: NO PCP Confirmed By:Johnny Arteaga
--- NOTE | 2024-02-28 07:01 | Hospitalist Progress Note ---
Date of Service February 28, 2024 Assessment & Plan (1) Diarrhea: Plan: 79yo female with history of squamous cell carcinoma of the buttock presenting with two days of profuse, watery diarrhea. #Watery Diarrhea -ddx includes infectious gastroenteritis vs radiation enterocolitis -Patient is pancytopenic with moderate neutropenia (calculated ANC of 1430 (increased from 580 on admission)) - WBC=2.11, %bands=5.2, %neutrophils=62.6). Last chemo 2 weeks ago. Afebrile. -Findings on CT as above, suggestive of enterocolitis. -stool PCR and c. 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 Plan to consult - continue IVF; LR@125ml/hr (2) Neutropenia: Plan: Patient with pancytopenia, moderate neutropenia. She is afebrile, non-toxic in appearance. Likely secondary to chemotherapy. -neutropenic precautions (3) Excoriation of buttock: Plan: Patient receiving radiation therapy -Wound care q shift -Continue silver sufadiazine cream at home dose -Turn and position q 2 hours for skin protection -May benefit from barrier cream (4) DVT (deep venous thrombosis): Plan: Bilateral LE venous doppler performed on 02/11/24 with venous thrombus within the left gastrocnemius vein which extends for 5.4 cm in length -hold Apixaban 2.5mg po BID due to downtrending platlet count (5) Hypertension: Plan: stable, continue Atenolol 100mg po daily (6) Asymptomatic bacteriuria: Plan: UA appears infectious and with symptoms. Cont. cefepime. Urine cx pending. (7) Hypoxia: Plan: New onset O2 requirement on admission, has since resolved. Now stable in room air CXR with bilateral lower opacity. However, CT A/P the previous day without any consolidation in lower lung ritter. It did however show some hyperinflation. Would recommend outpatient PFTs to assess for COPD. Procal neg Likely atelectasis - incentive spirometry Duoneb prn (8) Thrombocytopenia: Plan: - downtrending platelets in the setting of pancytopenia with chemotherapy - hold eliquis Plan DVT ppx: Eliquis held due to thrombocytopenia FEN/GI: regular Code Status: full Dispo: med surg Admission and Anticipated Discharge Date Admission Date: February 27, 2024 Supervising Physician Co-Signing Physician Notes Attending Physician Supervision Note: I independently interviewed and examined the patient and verified the perla history and physical, reviewed labs and image studies and agree with findings and care plan noted above. Diarrhea with neutropenia - diarrhea likely chemo/radiation related; less likely neutropenic enterocolitis(suggested finding on CT scan 02/24) - never had fever. minimal abd pain. continuing to have frequent diarrhea. -continue ivf - increase rate due to persistent diarrhea overnight. -continue empiric abx for now -consider adding cholestyramine. Pancytopenia - wbc and neutrophil counts improving but platelet count further down. -hold eliquis tonight dose and reassess in am. Recent DVT - 02/10. anticoagulated - dose hold tonight d/t worsening platelet count. reassess in am. continue scd. SCC of buttock - with excoriation - local care. Subjective Continues to have diarrhea. 5-6 episodes overnight, denies blood in stool. Some nausea, abdominal cramping. Ate some jello at dinner last night, but otherwise very limited PO intake. Review of Systems Review of Systems: As per above Physical Exam Physical Exam: Constitutional: well-appearing, no acute distress HEENT: NCAT, no conjunctival injection CV: regular rhythm, no murmur appreciated, extremities well-perfused Resp: CTABL, no wheezes/rales/rhonchi appreciated, no increased work of breathing GI: soft, nondistended, nontender, BS normoactive MSK: no gross deformities appreciated Skin: warm, dry, no rash appreciated Neuro: alert, oriented, no focal neurologic deficit appreciated Results & Data Results & Data Vital Signs (Past 12 Hours) Vital Signs Temp Pulse Pulse Resp BP Pulse Ox O2 Del Method 02/27/24 22:06 Nasal Cannula 02/27/24 21:13 60 20 99 Nasal Cannula 02/27/24 20:43 36.5 C 59 L 16 124/63 93 Room Air O2 Flow Rate 02/27/24 22:06 02/27/24 21:13 2 02/27/24 20:43 2 Resident Activity Tracking Resident Involvement: Resident Care Provided Care Provided: Adult Hospital Medicine (1) Diarrhea Diarrhea type: unspecified type Qualified Code(s): R19.7 - Diarrhea, unspecified (3) Excoriation of buttock Encounter type: initial encounter Qualified Code(s): S30.810A - Abrasion of lower back and pelvis, initial encounter
[2024-02-28 07:30] LABS: BUN Creatinine Ratio 27.8 (10-20); C Reactive Protein 8.06 mg/dl (0-0.5); Calcium 7.3 mg/dl (8.6-10.3); Creatinine Clr Calc Pharmacy 34.5 ml/min; Est GFR (African American) 56.1 ml/min; Est GFR (Non-African American) 48.4 ml/min; Magnesium 1.6 mg/dl (1.7-2.4); Potassium 3.1 mmol/L (3.5-5.1)
[2024-02-28 08:25] LABS: Basophils # (auto) 0.02 K/uL (0.00-0.20); Basophils % (auto) 0.9 %; Eosinophils # (auto) 0.13 K/uL (0.00-0.50); Eosinophils % (auto) 6.2 %; Hematocrit (blood only) 27.9 % (37.0-47.0); Hemoglobin 9.6 g/dl (12.0-16.0); Immature Granulocytes # (auto) 0.11 K/uL (0.01-0.20); Immature Granulocytes % (auto) 5.2 %; Lymphocytes # (auto) 0.12 K/uL (1.20-3.40); Lymphocytes % (auto) 5.7 %; Mean Corpuscular Hemoglobin 32.3 pg (25.0-34.0); Mean Corpuscular Hgb Conc 34.4 g/dL (32.0-36.0); Mean Corpuscular Volume 93.9 fL (80.0-100.0); Mean Platelet Volume 11.2 fL (9.4-12.4); Monocytes # (auto) 0.41 K/uL (0.11-0.59); Monocytes % (auto) 19.4 %; Neutrophils # (auto) 1.32 K/uL (1.40-6.50); Neutrophils % (auto) 62.6 %; Platelet Count 33 K/uL (130-400); Polychromasia 1+; RDW Coefficient of Variation 15.4 % (11.5-14.5); RDW Standard Deviation 49.5 fL (36.4-46.3); Red Blood Count 2.97 M/uL (4.20-5.40); Toxic Granulation 1+; White Blood Count 2.11 K/ul (4.8-10.8)
[2024-02-28] MEDS: PROCHLORPERAZINE MALEATE 10 MG TAB PO PRN (09:02)
[2024-02-28] MEDS: MAGNESIUM SULFATE / D5W 1 GM/100 ML BAG IV ONE (09:11)
[2024-02-28] MEDS: POTASSIUM CHLORIDE / WTR 10 MEQ/100 ML PLCT IV SCH (09:11)
[2024-02-28] MEDS: metroNIDAZOLE 500 MG/100 ML BAG IV SCH (11:44)
[2024-02-28] MEDS: ACETAMINOPHEN 1,000 MG/100 ML VIAL IV STA (13:07)
[2024-02-28] MEDS: ACETAMINOPHEN 1,000 MG/100 ML VIAL IV PRN (13:42)
[2024-02-28] MEDS: MELATONIN 3 MG TAB PO PRN (22:58)
[2024-02-29 02:11] LABS: Hematocrit (blood only) 25.7 % (37.0-47.0)
--- NOTE | 2024-02-29 06:34 | Hospitalist Progress Note ---
Date of Service February 29, 2024 Assessment & Plan (1) Diarrhea: Plan: 79yo female with history of squamous cell carcinoma of the buttock presenting with 5 days of profuse, watery diarrhea. #Watery Diarrhea -ddx includes infectious gastroenteritis vs radiation enterocolitis -Patient is pancytopenic with moderate neutropenia (calculated ANC of 1439 (increased from 580 on admission)) - WBC=2.34, %bands=7.3, %neutrophils=54.2). Last chemo 2 weeks ago. Afebrile. -Findings on CT as above, suggestive of enterocolitis. -stool PCR and c. 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 -PO intake poor, continue IVF; LR@120ml/hr (2) Neutropenia: Plan: Patient with pancytopenia, moderate neutropenia. She is afebrile, non-toxic in appearance. Likely secondary to chemotherapy. -neutropenic precautions (3) Excoriation of buttock: Plan: Patient receiving radiation therapy -Wound care q shift -Continue silver sufadiazine cream at home dose -Turn and position q 2 hours for skin protection -May benefit from barrier cream -Per conversation with heme/onc, OK to resume home Oxycodone 5mg q4-6hrs prn for pain (4) DVT (deep venous thrombosis): Plan: Bilateral LE venous doppler performed on 02/11/24 with venous thrombus within the left gastrocnemius vein which extends for 5.4 cm in length -hold Apixaban 2.5mg po BID due to downtrending platlet count (5) Hypertension: Plan: stable, continue Atenolol 100mg po daily (6) Asymptomatic bacteriuria: Plan: -UA appears infectious and with dysuria that is now improving. -Preliminary cx growing gram+ cocci, follow for sensitivities. -Continue cefepime. (7) Hypoxia: Plan: -New onset O2 requirement on admission, stable on 1-2L NC -CXR on admission with bilateral lower opacity. Repeat CXR today (02/28) with no acute cardiopulmonary abnormality. -However, CT A/P on admission revealed some hyperinflation, but otherwise no signs of infection. Would recommend outpatient PFTs to assess for COPD. -Procal neg -Likely atelectasis - encouraged incentive spirometry -Duoneb prn (8) Thrombocytopenia: Plan: -Downtrending platelets in the setting of pancytopenia with chemotherapy (on admission plts 54 -> 23 today) -Continue holding home eliquis Plan DVT ppx: Eliquis held due to thrombocytopenia, SCDs FEN/GI: regular, yogurt w/ each meal Code Status: full Dispo: med surg Admission and Anticipated Discharge Date Admission Date: February 27, 2024 Supervising Physician Co-Signing Physician Notes Attending Physician Supervision Note: I independently interviewed and examined the patient and verified the perla history and physical, reviewed labs and image studies and agree with findings and care plan noted above. weakness and lethargy worsening due to persistent diarrhea. one bowel movement last night was bloody. appetite has been very low. in bed - tired and tearful. no resp distress. no abdominal distention. Diarrhea with neutropenia - diarrhea likely chemo/radiation related; less likely neutropenic enterocolitis(suggested finding on CT scan 02/24) - never had fever. minimal abd pain. continuing to have frequent diarrhea. -continue ivf. prn boluses. -continue empiric abx for now -per heme/onc recommendation - add budesonide. -poor PO intake - should improve with improvement in diarrhea. Pancytopenia - wbc and neutrophil counts improving. platelet further down. -continue to hold eliquis. -last night blood in stool may be one time event. since no active concern of bleeding so hold off on transfusion. Recent DVT - 02/10. anticoagulated - holding eliquis. continue scd. SCC of buttock - with excoriation - local care. -oxycodone for pain control Hypoxia - CXR ordered - no acute findings. improved with neb treatment and spirometry use. follow Subjective Pt seen and examined at the bedside this AM with her daughter present. Continues to have diarrhea, states it is getting worse and more frequent. 1 episode of diarrhea overnight with bright red blood. Numerous other episodes of "black and watery" diarrhea. Struggling with PO intake due to no appetite & loss of taste from chemo. Pt and her daughter both express concerns for her rapidly increasing weakness (she was ambulating independently last week). Also some increasing SOB. Dysuria has improved since yesterday. Review of Systems Review of Systems: As per above Physical Exam Physical Exam: Constitutional: well-appearing, no acute distress HEENT: NCAT, no conjunctival injection CV: regular rhythm, no murmur appreciated, extremities well-perfused Resp: No increased work of breathing, no rales/rhonchi appreciated, +trace R- sided wheezes GI: soft, nondistended, nontender, BS normoactive MSK: no gross deformities appreciated Skin: warm, dry, no rash appreciated Neuro: alert, oriented, no focal neurologic deficit appreciated Results & Data Results & Data Vital Signs (Past 12 Hours) Vital Signs Temp Pulse Resp BP Pulse Ox O2 Del Method O2 Flow Rate 02/28/24 20:15 36.3 C L 60 16 124/69 97 Room Air 02/28/24 19:30 Nasal Cannula 2 (1) Diarrhea Diarrhea type: unspecified type Qualified Code(s): R19.7 - Diarrhea, unspecified (3) Excoriation of buttock Encounter type: initial encounter Qualified Code(s): S30.810A - Abrasion of lower back and pelvis, initial encounter
[2024-02-29 06:59] LABS: Hematocrit (blood only) 27.5 % (37.0-47.0); Hemoglobin 9.5 g/dl (12.0-16.0); Mean Corpuscular Hemoglobin 32.6 pg (25.0-34.0); Mean Corpuscular Hgb Conc 34.5 g/dL (32.0-36.0); Mean Corpuscular Volume 94.5 fL (80.0-100.0); Mean Platelet Volume 10.3 fL (9.4-12.4); Platelet Count 23 K/uL (130-400); RDW Coefficient of Variation 16.2 % (11.5-14.5); RDW Standard Deviation 50.9 fL (36.4-46.3); Red Blood Count 2.91 M/uL (4.20-5.40); White Blood Count 2.34 K/ul (4.8-10.8)
[2024-02-29 07:16] LABS: Albumin Globulin Ratio 0.9 (0.9-2); Albumin Level 1.9 gm/dl (3.4-5.0); BUN Creatinine Ratio 23.3 (10-20); Bilirubin,Total 0.5 mg/dl (0.2-1.0); C Reactive Protein 9.41 mg/dl (0-0.5); Calcium 7.1 mg/dl (8.6-10.3); Creatinine Clr Calc Pharmacy 36.2 ml/min; Est GFR (African American) 59.5 ml/min; Est GFR (Non-African American) 51.3 ml/min; Globulin 2.2 gm/dl (2.5-4.0); Magnesium 1.6 mg/dl (1.7-2.4); Potassium 3.4 mmol/L (3.5-5.1); Total Protein 4.1 gm/dl (6.0-8.3)
[2024-02-29 07:55] LABS: Basophils # (auto) 0.02 K/uL (0.00-0.20); Basophils % (auto) 0.9 %; Eosinophils # (auto) 0.29 K/uL (0.00-0.50); Eosinophils % (auto) 12.4 %; Immature Granulocytes # (auto) 0.17 K/uL (0.01-0.20); Immature Granulocytes % (auto) 7.3 %; Lymphocytes # (auto) 0.17 K/uL (1.20-3.40); Lymphocytes % (auto) 7.3 %; Monocytes # (auto) 0.42 K/uL (0.11-0.59); Monocytes % (auto) 17.9 %; Neutrophils # (auto) 1.27 K/uL (1.40-6.50); Neutrophils % (auto) 54.2 %; Toxic Granulation 2+
--- NOTE | 2024-02-29 08:06 | Oncology Consultation ---
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 At this point we will hold cancer treatment. Radiation treatment per radiation oncology colleagues. C. difficile has been negative. Have recommended antidiarrheals as well as budesonide. Recommended against placement of rectal tube given the risk of perforation. (2) Neutropenia: Continue broad-spectrum antibiotics. The patient does not have neutropenic fever. ANC is recovering while the patient is in the hospital (3) Thrombocytopenia: thrombocytopenia secondary to chemoradiation induced myelosuppression. Transfuse if platelet count is less than 10,000 or the patient is actively bleeding. Hold anticoagulation for previously identified venous thrombosis given that the platelet count is less than 50,000/mcL. Plan Thank you for this interesting oncological consult. A total of 60 minutes were spent in counseling, coordination of care review of prior records. Case was discussed extensively with my hospital internal medicine colleagues. 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 Likely malignant partially obstructing tumor in the distal rectum. Biopsied. Nonbleeding internal hemorrhoids. Sigmoidoscopy, 11/02/2023: Rectal mass, likely malignant tumor in the distal rectum. Biopsied. CT chest abdomen pelvis, 11/05/2023: No evidence of metastatic disease in the diaphragm. Emphysema and findings of interstitial lung disease. There is a large heterogenous mass involving the lower rectum/anus. Extends posteriorly into the posterior perianal soft tissues. No evidence of rectal obstruction. No evidence of metastatic disease in the abdomen or pelvis. Colonic diverticulosis without CT evidence of acute diverticulitis. Cardiomegaly. Rectal mass biopsy, 11/02/2023: Poorly differentiated squamous cell carcinoma Stage: cT3 N1 Treatment: Concurrent chemoradiation with 5-FU plus mitomycin: Cycle 1 day 1, 01/17/[address] scan, 12/28/2023: IMPRESSION: 6 1. Marked FDG uptake primary lesion within the lower rectum and anus. 2. Mild FDG uptake within mildly enlarged bilateral inguinal lymph nodes. This yue uptake is suspicious for yue spread of disease. 3. Mild FDG uptake within a prominent right external iliac lymph node. This node is indeterminate and a yue metastasis cannot be excluded. 4. No evidence for metastatic disease within the neck or chest. 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 The patient has had severe diarrhea since she was started on concurrent chemo RT however over the last few days the frequency and severity of diarrhea has increased. We have checked C. difficile couple of times which has been negative. The patient also has poor oral intake and is not able to keep food down. Reports no fever or chills. Reports nausea vomiting. Allergies Allergy/AdvReac Type Severity Reaction Status Date / Time No Known Allergies Allergy Verified 02/26/24 22:04 Home Medications Medication Instructions Recorded Confirmed Type atenolol 100 mg tablet 100 mg PO .DAILY @ 1130 07/02/23 02/26/24 History meclizine 25 mg tablet 25 mg PO BID PRN Vertigo 07/02/23 02/26/24 History pantoprazole 40 mg tablet,delayed 40 mg PO QAM 01/11/24 02/26/24 History release vitamin A and D (Sween Cream 1 applic topical 6XD PRN Skin 01/11/24 02/26/24 History topical) Irritation ondansetron HCl 8 mg tablet 8 mg PO Q8H PRN Nausea 01/17/24 02/26/24 History prochlorperazine maleate 10 mg 10 mg PO Q6H PRN Nausea And 01/17/24 02/26/24 History tablet (Compazine) Vomiting silver sulfadiazine 1 % topical 1 applic topical BID irritation of 01/24/24 02/26/24 Rx cream (Silvadene) anal area #85 grams gabapentin 100 mg capsule 100 mg PO TID 02/07/24 02/26/24 History apixaban 2.5 mg tablet (Eliquis) 2.5 mg PO Q12H 02/14/24 02/26/24 History diphenoxylate-atropine 2.5 1 tab PO Q6H PRN diarrhea #12 tabs 02/20/24 02/26/24 Rx mg-0.025 mg tablet (Lomotil) Patient History Medical History Primary squamous cell carcinoma of anal canal Fatigue Hemorrhoids Allergic rhinitis Seasonal allergies Loose stools Hx of cervical cancer Hx 50 years ago, no chemo or radiation Hx of vertigo Intermittent, no recent issues Hypertension Surgical History Port-A-Cath in place (01/13/24) Insertion of Access Port with Fluoroscopy-Left Subclavian(Left) - Josh Goel DO H/O flexible sigmoidoscopy 11/02/23, [facility] History of esophagogastroduodenoscopy Hx of colonoscopy 10/25/23 Hx of breast lump removal benign Hx of vein stripping H/O: hysterectomy Family History Daughter Ulcerative colitis Denies family history of Crohn's disease Colorectal cancer Social History Smoking Status: Current every day smoker Tobacco Type: Cigarettes Age Started Using Tobacco: 13; packs per day: 0.5; Cigarettes Per Day: 4-5; Second Hand Exposure: No; Do You Dip or Chew Tobacco: No; Hx Alcohol Use: No Hx Substance Use: No Preferred Language: Israeli Communication Ability: Effective Radarman Required: No Beliefs That Will Affect Care: None Current Living Situation: Spouse Feels Safe at Home: Yes Safety Concerns: Feels Safe At This Time Diet: regular during the past year weight has: decreased > 10 lbs Assistive Devices: Cane and Walker Review of Systems Review of Systems: Diarrhea, nausea, poor oral intake, weight loss Constitutional: as per Subjective / HPI Eyes: as per Subjective / HPI Ear, Nose, Mouth, Throat: as per Subjective / HPI Respiratory: as per Subjective / HPI Cardiovascular: as per Subjective / HPI Gastrointestinal: as per Subjective / HPI Genitourinary: as per Subjective / HPI Musculoskeletal: as per Subjective / HPI Integumentary: as per Subjective / HPI Physical Exam Constitutional: + thin and + cachectic Eyes: PERRL, conjunctivae normal, anicteric sclerae ENMT: external ear and nose normal, oropharynx normal Neck: trachea midline, no thyromegaly Respiratory: normal respiratory effort, lungs clear to auscultation Cardiovascular: RRR, no murmur, no edema Gastrointestinal (Abdomen): normal bowel sounds, soft, nontender, no hepatosplenomegaly Musculoskeletal: no cyanosis or clubbing, extremities motor strength 5/5 Skin: no rashes, warm and dry Neurologic: patellar DTR's 2+ bilat, sensation intact Results & Data Vital Signs (Past 12 Hours) Vital Signs Temp Pulse Resp BP Pulse Ox O2 Del Method 02/29/24 07:11 36.4 C L 61 16 111/70 96 Room Air 02/28/24 20:15 36.3 C L 60 16 124/69 97 Room Air (1) Diarrhea Diarrhea type: unspecified type Qualified Code(s): R19.7 - Diarrhea, unspecified
[2024-02-29] MEDS: MAGNESIUM SULFATE / D5W 1 GM/100 ML BAG IV ONE (08:10)
[2024-02-29] MEDS: POTASSIUM CHLORIDE CRTAB 20 MEQ TABCR PO STA (10:15)
[2024-02-29] MEDS: BUDESONIDE EC 3 MG CAP PO SCH (10:16)
--- NOTE | 2024-02-29 12:51 | XRay Report ---
SINGLE VIEW CHEST CLINICAL HISTORY: Hypoxia FINDINGS: An AP, portable, upright chest radiograph is compared to study dated 02/27/2024 and correlat ed with chest CT dated 11/05/2023. The examination is degraded by portable technique and patient rotati on. The heart is mildly enlarged and atherosclerotic calcification of the thoracic aorta. The pulmon erendira vasculature is noncongested. Emphysema and chronic interstitial thickening is similar to previous . There is bibasilar scarring/atelectasis. No airspace consolidation or large pleural effusion is katherine ntified. No pneumothorax is seen. The skeletal structures are osteopenic. The bony thorax is grossly intact. IMPRESSION: Cardiomegaly and emphysema with no acute cardiopulmonary abnormality identified. ACT 112: Negative or not required by law. Electronically signed by: Davin Bonds M.D. 02/29/2024 12:50 PM
[2024-02-29] MEDS: MoRPHine SULFATE 2 MG/ML CARP IV ONE (13:12)
[2024-02-29] MEDS: oxyCODONE HCL IR 5 MG TAB (IMMEDIATE RELEASE) PO STA (14:39)
[2024-02-29] MEDS: ACETAMINOPHEN 1,000 MG/100 ML VIAL IV SCH (14:39)
[2024-02-29 15:57] LABS: Basophils # (auto) 0.04 K/uL (0.00-0.20); Basophils % (auto) 1.4 %; Eosinophils # (auto) 0.09 K/uL (0.00-0.50); Eosinophils % (auto) 3.1 %; Hemoglobin 9.9 g/dl (12.0-16.0); Immature Granulocytes # (auto) 0.19 K/uL (0.01-0.20); Immature Granulocytes % (auto) 6.6 %; Lymphocytes % (auto) 3.4 %; Mean Corpuscular Hemoglobin 32.2 pg (25.0-34.0); Mean Corpuscular Hgb Conc 34.1 g/dL (32.0-36.0); Mean Corpuscular Volume 94.5 fL (80.0-100.0); Monocytes # (auto) 0.41 K/uL (0.11-0.59); Monocytes % (auto) 14.1 %; Neutrophils # (auto) 2.07 K/uL (1.40-6.50); Neutrophils % (auto) 71.4 %; Platelet Count 24 K/uL (130-400); RDW Coefficient of Variation 16.4 % (11.5-14.5); RDW Standard Deviation 50.8 fL (36.4-46.3); Red Blood Count 3.07 M/uL (4.20-5.40); Toxic Granulation 2+
[2024-03-01 07:03] LABS: Hematocrit (blood only) 27.7 % (37.0-47.0); Hemoglobin 9.7 g/dl (12.0-16.0); Mean Corpuscular Hemoglobin 32.7 pg (25.0-34.0); Mean Corpuscular Volume 93.3 fL (80.0-100.0); Mean Platelet Volume 10.3 fL (9.4-12.4); Platelet Count 26 K/uL (130-400); RDW Coefficient of Variation 16.4 % (11.5-14.5); RDW Standard Deviation 51.4 fL (36.4-46.3); Red Blood Count 2.97 M/uL (4.20-5.40); White Blood Count 2.54 K/ul (4.8-10.8)
[2024-03-01 07:17] LABS: Albumin Globulin Ratio 0.8 (0.9-2); Albumin Level 1.8 gm/dl (3.4-5.0); BUN Creatinine Ratio 23.3 (10-20); Bilirubin,Total 0.5 mg/dl (0.2-1.0); Calcium 6.9 mg/dl (8.6-10.3); Creatinine Clr Calc Pharmacy 36.2 ml/min; Est GFR (African American) 59.5 ml/min; Est GFR (Non-African American) 51.3 ml/min; Globulin 2.2 gm/dl (2.5-4.0); Magnesium 1.6 mg/dl (1.7-2.4); Potassium 3.5 mmol/L (3.5-5.1)
[2024-03-01 07:48] LABS: Basophils # (auto) 0.02 K/uL (0.00-0.20); Basophils % (auto) 0.8 %; Eosinophils # (auto) 0.15 K/uL (0.00-0.50); Eosinophils % (auto) 5.9 %; Immature Granulocytes # (auto) 0.21 K/uL (0.01-0.20); Immature Granulocytes % (auto) 8.3 %; Lymphocytes # (auto) 0.17 K/uL (1.20-3.40); Lymphocytes % (auto) 6.7 %; Monocytes # (auto) 0.44 K/uL (0.11-0.59); Monocytes % (auto) 17.3 %; Neutrophils # (auto) 1.55 K/uL (1.40-6.50); Toxic Granulation 2+
[2024-03-01] MEDS: MAGNESIUM SULFATE / D5W 1 GM/100 ML BAG IV ONE (09:02)
--- NOTE | 2024-03-01 15:29 | Hospitalist Progress Note ---
Date of Service March 01, 2024 Assessment & Plan (1) Diarrhea: Plan: 79yo female with history of squamous cell carcinoma of the buttock presenting with 5 days of profuse, watery diarrhea. #Watery Diarrhea -ddx includes infectious gastroenteritis vs radiation enterocolitis -Patient is pancytopenic with moderate neutropenia (calculated ANC of 1760 (increased from 580 on admission)) - WBC=2.54, %bands=8.3, %neutrophils=61). Last chemo 2 weeks ago. Afebrile. -Findings on CT as above, suggestive of enterocolitis. -stool PCR and c. 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 She is afebrile, non-toxic in appearance. Likely secondary to chemotherapy. -neutropenic precautions (3) Excoriation of buttock: Plan: Patient receiving radiation therapy -Wound care q shift -Continue silver sufadiazine cream at home dose -Turn and position q 2 hours for skin protection -May benefit from barrier cream -Per conversation with heme/onc, OK to resume home Oxycodone 5mg q4-6hrs prn for pain (4) DVT (deep venous thrombosis): Plan: Bilateral LE venous doppler performed on 02/11/24 with venous thrombus within the left gastrocnemius vein which extends for 5.4 cm in length -hold Apixaban 2.5mg po BID due to downtrending platlet count (5) Hypertension: Plan: stable, continue Atenolol 100mg po daily (6) Asymptomatic bacteriuria: Plan: -UA appears infectious and with dysuria that is now improving. -Cx grew Enterococcus faecalis resistant to tetracycline, sensitive otherwise. -Continue cefepime. (7) Hypoxia: Plan: -New onset O2 requirement on admission, stable on 1-2L NC -CXR on admission with bilateral lower opacity. Repeat CXR (02/28) with no acute cardiopulmonary abnormality. -However, CT A/P on admission revealed some hyperinflation, but otherwise no signs of infection. Would recommend outpatient PFTs to assess for COPD. -Procal neg -Likely atelectasis - encouraged incentive spirometry -Duoneb prn (8) Thrombocytopenia: Plan: -Downtrending platelets in the setting of pancytopenia with chemotherapy (on admission plts 54 -> 26 today) -Continue holding home eliquis -Transfuse if plt count drops below 10,000 or if signs of active bleeding Plan DVT ppx: Eliquis held due to thrombocytopenia, SCDs FEN/GI: regular, yogurt w/ each meal Code Status: full Dispo: med surg Admission and Anticipated Discharge Date Admission Date: February 27, 2024 Supervising Physician Co-Signing Physician Notes Attending Physician Supervision Note: I independently interviewed and examined the patient and verified the perla history and physical, reviewed labs and image studies and agree with findings and care plan noted above. persistent diarrhea through the night. also, unable to hold stool when out of bed. continuing to feel weak. appetite continues to be poor. in bed - AAOx3. no resp distress. no abdominal distention. Diarrhea with neutropenia - diarrhea likely chemo/radiation related - never had fever. minimal abd pain. continuing to have frequent diarrhea. -continue ivf. prn boluses. -continue empiric abx -per heme/onc recommendation - added budesonide. -poor PO intake - should improve with improvement in diarrhea. Pancytopenia - wbc and neutrophil counts improving. platelet slightly better as well. -continue to hold eliquis. Recent DVT - 02/10. anticoagulated - holding eliquis. continue scd. SCC of buttock - with excoriation - local care. -oxycodone for pain control Hypoxia - 02/28 - CXR ordered - no acute findings. improved with neb treatment and spirometry use. follow Subjective Pt seen and examined at the bedside this AM. Continues to have diarrhea, unsure how many episodes overnight but thinks frequency may be decreasing. Also got out of bed once and sat on commode for a few moments with tenesmus. Still struggling with PO intake due to no appetite & loss of taste from chemo, has not eaten today. SOB improved significantly last night after neb tx. Review of Systems Review of Systems: As per HPI. Physical Exam Physical Exam: Constitutional: well-appearing, no acute distress HEENT: NCAT, no conjunctival injection CV: regular rhythm, no murmur appreciated, extremities well-perfused Resp: No increased work of breathing, no wheezes/rales/rhonchi appreciated GI: soft, nondistended, nontender, BS normoactive MSK: no gross deformities appreciated Skin: warm, dry, no rash appreciated Neuro: alert, oriented, no focal neurologic deficit appreciated Results & Data Results & Data Vital Signs (Past 12 Hours) Vital Signs Temp Pulse Pulse Resp BP BP Pulse Ox 03/01/24 14:38 36.8 C 60 16 133/66 96 03/01/24 12:01 03/01/24 11:36 60 16 123/59 L 97 03/01/24 07:41 36.5 C 63 16 133/68 97 Pulse Ox O2 Del Method O2 Flow Rate O2 Flow Rate 03/01/24 14:38 Nasal Cannula 2 03/01/24 12:01 98 2 03/01/24 11:36 Nasal Cannula 2 03/01/24 07:41 Room Air (1) Diarrhea Diarrhea type: unspecified type Qualified Code(s): R19.7 - Diarrhea, unspecified (3) Excoriation of buttock Encounter type: initial encounter Qualified Code(s): S30.810A - Abrasion of lower back and pelvis, initial encounter
[2024-03-01] MEDS: oxyCODONE HCL IR 5 MG TAB (IMMEDIATE RELEASE) PO PRN (23:41)
[2024-03-01] MEDS: ONDANSETRON INJ 2 MG/ML 2 ML VIAL IV PRN (23:54)
[2024-03-02 09:44] LABS: Hematocrit (blood only) 30.9 % (37.0-47.0); Hemoglobin 10.5 g/dl (12.0-16.0); Mean Corpuscular Hemoglobin 32.4 pg (25.0-34.0); Mean Corpuscular Volume 95.4 fL (80.0-100.0); Mean Platelet Volume 11.3 fL (9.4-12.4); Platelet Count 24 K/uL (130-400); RDW Coefficient of Variation 17.4 % (11.5-14.5); RDW Standard Deviation 53.4 fL (36.4-46.3); Red Blood Count 3.24 M/uL (4.20-5.40)
[2024-03-02 09:54] LABS: Albumin Globulin Ratio 0.9 (0.9-2); Albumin Level 1.9 gm/dl (3.4-5.0); BUN Creatinine Ratio 24.2 (10-20); Bilirubin,Total 0.6 mg/dl (0.2-1.0); Calcium 7.1 mg/dl (8.6-10.3); Creatinine Clr Calc Pharmacy 30.1 ml/min; Est GFR (African American) 47.5 ml/min; Globulin 2.1 gm/dl (2.5-4.0); Magnesium 1.7 mg/dl (1.7-2.4); Potassium 3.6 mmol/L (3.5-5.1)
[2024-03-02 10:21] LABS: ALC (manual) 0.14 K/uL (1.2-3.4); ANC (manual) 2.48 K/uL (1.4-6.5); Eosinophils % (manual) 3 %; Lymphocytes # (manual) 0.14 K/uL (1.2-3.4); Lymphocytes % (manual) 4 %; Metamyelocytes # (manual) 0.07 K/uL (0-0); Metamyelocytes % (manual) 2 %; Monocytes # (manual) 0.51 K/uL (0.11-0.59); Monocytes % (manual) 15 %; Myelocytes % (manual) 3 %; Neutrophils # (manual) 2.48 K/uL (1.40-6.50); Neutrophils % (manual) 73 %; Ovalocytes 1+; Polychromasia 1+; Tear Drop Cells 1+; Toxic Granulation 3+
[2024-03-02] MEDS: PLASMA-LYTE A 1,000 ML IV SCH (11:50)
--- NOTE | 2024-03-02 15:10 | Hospitalist Progress Note ---
Date of Service March 02, 2024 Assessment & Plan (1) Diarrhea: Plan: 79yo female with history of squamous cell carcinoma of the buttock presenting with 5 days of profuse, watery diarrhea. #Watery Diarrhea --> Continuing to improve -Findings on CT as above, suggestive of enterocolitis, likely related to radiation vs. possible infection -Patient is pancytopenic, neutropenia has recovered since admission. Last chemo >2 weeks ago. Afebrile. -stool PCR and c. diff negative -CRP increased from admission 3.48-> 9.41 -On admission started on Cefepime and Flagyl- Flagyl stopped 02/26 as diarrhea began improving- worsening over yesterday and Flagyl restarted -Appreciated hematology recommendations. -Continue Budesonide taper -Continue antidiarrheals -Avoid rectal tube due to increased risk of perforation -PO intake poor, continue IVF; Plasma-Lyte A@120ml/hr -Encouraged PT participation (2) Neutropenia: Plan: Patient with pancytopenia, improved neutropenia. She is afebrile, non-toxic in appearance. Likely secondary to chemotherapy. -neutropenic precautions (3) Excoriation of buttock: Plan: Patient receiving radiation therapy -Wound care q shift -Continue silver sufadiazine cream at home dose -Turn and position q 2 hours for skin protection -May benefit from barrier cream -Per conversation with heme/onc, OK to resume home Oxycodone 5mg q4-6hrs prn for pain (4) DVT (deep venous thrombosis): Plan: Bilateral LE venous doppler performed on 02/11/24 with venous thrombus within the left gastrocnemius vein which extends for 5.4 cm in length -hold Apixaban 2.5mg po BID due to downtrending platlet count (5) Hypertension: Plan: stable, continue Atenolol 100mg po daily (6) Asymptomatic bacteriuria: Plan: -UA appears infectious and with dysuria that is now improved. -Cx grew Enterococcus faecalis resistant to tetracycline, sensitive otherwise. -Continue cefepime. (7) Hypoxia: Plan: -New onset O2 requirement on admission, stable on 1-2L NC -CXR on admission with bilateral lower opacity. Repeat CXR (02/28) with no acute cardiopulmonary abnormality. -However, CT A/P on admission revealed some hyperinflation, but otherwise no signs of infection. Would recommend outpatient PFTs to assess for COPD. -Procal neg -Likely atelectasis - encouraged incentive spirometry -Duoneb prn (8) Thrombocytopenia: Plan: -Downtrending platelets in the setting of pancytopenia with chemotherapy (on admission plts 54 -> 24 today) -Continue holding home eliquis -Transfuse if plt count drops below 10,000 or if signs of active bleeding Plan DVT ppx: Eliquis held due to thrombocytopenia, SCDs FEN/GI: regular, yogurt w/ each meal Code Status: full Dispo: med surg Admission and Anticipated Discharge Date Admission Date: February 27, 2024 Supervising Physician Co-Signing Physician Notes Attending Physician Supervision Note: I independently interviewed and examined the patient and verified the perla history and physical, reviewed labs and image studies and agree with findings and care plan noted above. diarrhea improving today. didn't participate in PT this am but felt better later in the day. appetite still continues to be poor. No fever. in bed - AAOx3. no resp distress. no abdominal distention. Diarrhea with neutropenia - diarrhea likely chemo/radiation related -continue ivf. prn boluses. -continue empiric abx -per heme/onc recommendation - added budesonide taper. -poor PO intake - should improve with improvement in diarrhea. Pancytopenia - wbc and neutrophil counts improving. platelet still low. -continue to hold eliquis. Recent DVT - 02/10. holding eliquis. continue scd. SCC of buttock - with excoriation - local care. -oxycodone for pain control Hypoxia - 02/28 - CXR ordered - no acute findings. improved with neb treatment and spirometry use. follow Subjective Pt seen and examined at the bedside this AM. Only 1 episode of diarrhea since last night. Energy is getting better. Ate oa tmeal this AM and even noticed some taste returning. Not moving out of bed yet other than to commode. Overall feeling improvement. SOB improved significantly last night after neb tx. Review of Systems Review of Systems: As per HPI. Physical Exam Physical Exam: Constitutional: well-appearing, no acute distress HEENT: NCAT, no conjunctival injection CV: regular rhythm, no murmur appreciated, extremities well-perfused Resp: No increased work of breathing, no wheezes/rales/rhonchi appreciated GI: soft, nondistended, nontender, BS normoactive MSK: no gross deformities appreciated Skin: warm, dry, no rash appreciated Neuro: alert, oriented, no focal neurologic deficit appreciated Results & Data Results & Data Vital Signs (Past 12 Hours) Vital Signs Temp Pulse Pulse Resp BP Pulse Ox O2 Del Method 03/02/24 10:34 69 18 108/64 99 Nasal Cannula 03/02/24 09:18 63 18 93 Nasal Cannula 03/02/24 08:00 Nasal Cannula 03/02/24 07:37 36.3 C L 65 20 96/59 L 97 Room Air O2 Flow Rate 03/02/24 10:34 03/02/24 09:18 3 03/02/24 08:00 2 03/02/24 07:37 (1) Diarrhea Diarrhea type: unspecified type Qualified Code(s): R19.7 - Diarrhea, unspecified (3) Excoriation of buttock Encounter type: initial encounter Qualified Code(s): S30.810A - Abrasion of lower back and pelvis, initial encounter
[2024-03-03 06:41] LABS: Albumin Globulin Ratio 0.8 (0.9-2); Albumin Level 1.6 gm/dl (3.4-5.0); BUN Creatinine Ratio 24.6 (10-20); Bilirubin,Total 0.4 mg/dl (0.2-1.0); Calcium 6.7 mg/dl (8.6-10.3); Creatinine Clr Calc Pharmacy 27.8 ml/min; Est GFR (African American) 43.3 ml/min; Est GFR (Non-African American) 37.3 ml/min; Magnesium 1.9 mg/dl (1.7-2.4); Potassium 3.5 mmol/L (3.5-5.1); Total Protein 3.6 gm/dl (6.0-8.3)
[2024-03-03 06:52] LABS: Hematocrit (blood only) 27.4 % (37.0-47.0); Hemoglobin 9.2 g/dl (12.0-16.0); Mean Corpuscular Hemoglobin 32.1 pg (25.0-34.0); Mean Corpuscular Hgb Conc 33.6 g/dL (32.0-36.0); Mean Corpuscular Volume 95.5 fL (80.0-100.0); Mean Platelet Volume 10.6 fL (9.4-12.4); Platelet Count 19 K/uL (130-400); RDW Coefficient of Variation 17.5 % (11.5-14.5); RDW Standard Deviation 55.9 fL (36.4-46.3); Red Blood Count 2.87 M/uL (4.20-5.40); White Blood Count 4.51 K/ul (4.8-10.8)
[2024-03-03 07:24] LABS: Acanthocytes 1+; Basophils # (auto) 0.03 K/uL (0.00-0.20); Basophils % (auto) 0.7 %; Eosinophils # (auto) 0.05 K/uL (0.00-0.50); Eosinophils % (auto) 1.1 %; Immature Granulocytes # (auto) 0.43 K/uL (0.01-0.20); Immature Granulocytes % (auto) 9.5 %; Lymphocytes # (auto) 0.17 K/uL (1.20-3.40); Lymphocytes % (auto) 3.8 %; Monocytes # (auto) 0.66 K/uL (0.11-0.59); Monocytes % (auto) 14.6 %; Neutrophils # (auto) 3.17 K/uL (1.40-6.50); Neutrophils % (auto) 70.3 %; Toxic Granulation 1+
[2024-03-03] MEDS: BUDESONIDE EC 3 MG CAP PO SCH (08:05)
[2024-03-03] MEDS: PLASMA-LYTE A 500 ML IV ONE (08:23)
--- NOTE | 2024-03-03 11:55 | Ultrasound Report ---
BILATERAL LOWER EXTREMITY VENOUS DOPPLER HISTORY: Lower extremity swelling. r/o clot COMPARISON STUDY: Lower extremity Venous Doppler 02/11/2024. FINDINGS: There is normal compressibility, flow, and augmentation within the bilateral lower extremit y deep venous systems. IMPRESSION: No DVT within the right or left lower extremity. ACT 112: Negative or not required by law. Electronically signed by: Hudson Lr M.D. 03/03/2024 11:54 AM
--- NOTE | 2024-03-03 13:35 | Hospitalist Progress Note ---
Date of Service March 03, 2024 Assessment & Plan (1) Diarrhea: Plan: 79yo female with history of squamous cell carcinoma of the buttock presenting with 5 days of profuse, watery diarrhea. #Watery Diarrhea --> Continuing to improve Findings on CT as above, suggestive of enterocolitis, likely related to radiation vs. possible infection. Patient is pancytopenic, initially neutropenia as well, which has recovered since admission. Last chemo >2 weeks ago. Afebrile. -stool PCR and c. diff negative -CRP increased from admission 3.48-> 9.41 -Cefepime and Flagyl started on admission, continued for empiric coverage through 03/03. -Appreciated hematology recommendations. -Continue Budesonide taper -Continue antidiarrheals -Avoid rectal tube due to increased risk of perforation -PO intake poor -Continue IVF; Plasma-Lyte A@120ml/hr -Add Boost prn to supplement meals -Encouraged PT participation (2) Neutropenia: Plan: Patient with pancytopenia, improved neutropenia. She is afebrile, non-toxic in appearance. Likely secondary to chemotherapy. -neutropenic precautions (3) Excoriation of buttock: Plan: Patient receiving radiation therapy -Wound care q shift -Continue silver sufadiazine cream at home dose -Turn and position q 2 hours for skin protection -May benefit from barrier cream -Per conversation with heme/onc, OK to resume home Oxycodone 5mg q4-6hrs prn for pain (4) DVT (deep venous thrombosis): Plan: Bilateral LE venous doppler performed on 02/11/24 with venous thrombus within the left gastrocnemius vein which extends for 5.4 cm in length. Increased edema, doppler repeated on 03/03/24 which revealed no clots. -hold Apixaban 2.5mg po BID due to downtrending platelet count (5) Hypertension: Plan: stable, continue Atenolol 100mg po daily (6) Asymptomatic bacteriuria: Plan: -UA appears infectious and with dysuria that is now improved. -Cx grew Enterococcus faecalis resistant to tetracycline, sensitive otherwise. -Treated with cefepime. Resolved. (7) Hypoxia: Plan: -New onset O2 requirement on admission, stable on 1-2L NC -CXR on admission with bilateral lower opacity. Repeat CXR (02/28) with no acute cardiopulmonary abnormality. -However, CT A/P on admission revealed some hyperinflation, but otherwise no signs of infection. Would recommend outpatient PFTs to assess for COPD. -Procal neg -Likely atelectasis - encouraged incentive spirometry -Duoneb prn (8) Thrombocytopenia: Plan: -Downtrending platelets in the setting of pancytopenia with chemotherapy (on admission plts 54 -> 19 today) -Continue holding home eliquis -Transfuse if plt count drops below 10,000 or if signs of active bleeding Plan DVT ppx: Eliquis held due to thrombocytopenia, SCDs FEN/GI: regular, yogurt w/ each meal Code Status: full Dispo: med surg Admission and Anticipated Discharge Date Admission Date: February 27, 2024 Supervising Physician Co-Signing Physician Notes Attending Physician Supervision Note: I independently interviewed and examined the patient and verified the perla history and physical, reviewed labs and image studies and agree with findings and care plan noted above. diarrhea improved. still not eating much. No fever. in bed - AAOx3. no resp distress. no abdominal distention. Diarrhea with neutropenia - diarrhea chemo/radiation related - improving -will d/c abx -continue budesonide taper. Hypotension -from poor PO intake -continue IVF - plasmalyte. bolus prn. Poor appetite - -continue ivf. prn boluses while still with no appetite. -likely from acute exacerbation of radiation induced diarrhea. -will empirically treat for thrush - nystatin added. Pancytopenia - wbc and neutrophil counts improving. platelet still low. -continue to hold eliquis. Recent DVT - 02/10. holding eliquis. continue scd. -recheck doppler today with no DVT. SCC of buttock - with excoriation - local care. -oxycodone for pain control Subjective Pt seen and examined at the bedside this AM. Diarrhea continuing to improve. Her biggest worry is tiredness and feeling too weak to get out of bed. Having some lightheadedness when upright. She did not participate in PT yesterday. Also did not eat dinner. She denies nausea and reports that she does have an appetite and will feel hungry but then chooses to not eat due to not having taste. She states she has the desire to get stronger but reason for declining PT is that she has significant worry about falling/injury due to her weakness. Review of Systems Review of Systems: As per HPI. Physical Exam Physical Exam: Constitutional: well-appearing, no acute distress HEENT: NCAT, no conjunctival injection CV: regular rhythm, no murmur appreciated. +bilateral 2+ pitting edema of the feet, +purple discoloration L-toes Resp: No increased work of breathing, no wheezes/rales/rhonchi appreciated GI: soft, nondistended, nontender, BS normoactive MSK: no gross deformities appreciated Skin: warm, dry, no rash appreciated Neuro: alert, oriented, no focal neurologic deficit appreciated Results & Data Results & Data Vital Signs (Past 12 Hours) Vital Signs Temp Pulse Resp BP BP Pulse Ox O2 Del Method 03/03/24 09:58 Nasal Cannula 03/03/24 08:10 36.4 C L 03/03/24 08:08 96 Nasal Cannula 03/03/24 08:01 34.4 C L 63 16 94/57 L 96 Room Air 03/03/24 07:13 92/45 L 03/03/24 07:01 36.3 C L 57 L 18 86/47 L 96 Nasal Cannula O2 Flow Rate 03/03/24 09:58 2 03/03/24 08:10 03/03/24 08:08 2 03/03/24 08:01 03/03/24 07:13 03/03/24 07:01 2 (1) Diarrhea Diarrhea type: unspecified type Qualified Code(s): R19.7 - Diarrhea, unspecified (3) Excoriation of buttock Encounter type: initial encounter Qualified Code(s): S30.810A - Abrasion of lower back and pelvis, initial encounter
[2024-03-03] MEDS: ACETAMINOPHEN 325 MG TAB PO PRN (13:40)
[2024-03-03] MEDS: NYSTATIN SUSP 500,000 U/5 ML UDC PO SCH (20:02)
[2024-03-04] MEDS ORDERED: CEFEPIME 1,000 MG in SYRINGE 0 ML IV SCH
--- NOTE | 2024-03-04 07:06 | Hospitalist Progress Note ---
Date of Service March 04, 2024 Assessment & Plan (1) Diarrhea: Plan: 79yo female with history of squamous cell carcinoma of the buttock presenting with two days of profuse, watery diarrhea. Watery Diarrhea -Findings on CT suggestive of enterocolitis, likely related to radiation vs. possible infection. Patient is pancytopenic, initially neutropenia as well, which has recovered since admission. Last chemo >2 weeks ago. Afebrile. -stool PCR and c. diff negative -CRP increased from admission 3.48-> 9.41 -Cefepime and Flagyl started on admission, continued for empiric coverage through 03/03. -Appreciated hematology recommendations. -Continue Budesonide taper -Continue antidiarrheals -Avoid rectal tube due to increased risk of perforation -PO intake poor -Continue IVF; Plasma-Lyte A@120ml/hr -Add Boost prn to supplement meals -Encouraged PT participation Hypotension -Patient has been hypotensive at times, however has bounced back with fluid boluses. -Likely related to her diarrhea. -Had some subjective shortness of breath 03/04, CXR with small b/l pleural effusions. -If patient goes hypotensive again would trial another 500cc bolus. -If short of breath repeat CXR. -If persisting into tomorrow can hold Atenolol -For now trend BP. Numbness/weakness -Patient with RLE numbness/pain and general weakness. -B/l LE dopplers negative. MRI brain negative for any signs of stroke. -May be related to weakness/stasis with pressure on buttock region compressing nerve. -turn patient in bed to offload when possible. Neutropenia Patient with pancytopenia, moderate neutropenia. She is afebrile, non-toxic in appearance. Likely secondary to chemotherapy. -neutropenic precautions Excoriation of Buttock Patient receiving radiation therapy -Wound care q shift -Continue silver sufadiazine cream at home dose -Turn and position q 2 hours for skin protection -May benefit from barrier cream -Per conversation with heme/onc, OK to resume home Oxycodone 5mg q4-6hrs prn for pain DVT Prophylaxis Bilateral LE venous doppler performed on 02/11/24 with venous thrombus within the left gastrocnemius vein which extends for 5.4 cm in length Repeat b/l LE doppler 03/03 without any clots. -hold Apixaban 2.5mg po BID due to downtrending platelet count Asymptomatic bacteruria UA appears infectious and with symptoms. Culture grew adalberto as well as E. faecalis however only at 20k Likely not contributor as patient has been afebrile and hypotension likely more from diarrhea/fluid imbalance rather than sepsis Hypoxia -New onset O2 requirement on admission, stable on 1-2L NC -CXR on admission with bilateral lower opacity. Repeat CXR (02/28) with no acute cardiopulmonary abnormality. -However, CT A/P on admission revealed some hyperinflation, but otherwise no signs of infection. Would recommend outpatient PFTs to assess for COPD. -Procal neg -CXR 03/04 with small bilateral pleural effusion however O2 requirement remains the same. -Possibly atelectasis - incentive spirometry -Duoneb prn Thrombocytopenia - downtrending platelets in the setting of pancytopenia with chemotherapy - hold eliquis while under 50k DVT ppx: Eliquis held due to thrombocytopenia while under 50k FEN/GI: regular Code Status: full Dispo: med surg (2) Neutropenia: (3) Excoriation of buttock: (4) DVT (deep venous thrombosis): (5) Hypertension: (6) Asymptomatic bacteriuria: (7) Hypoxia: (8) Thrombocytopenia: Admission and Anticipated Discharge Date Admission Date: February 27, 2024 Supervising Physician Co-Signing Physician Notes Attending Physician Supervision Note: I independently interviewed and examined the patient and verified the perla history and physical, reviewed labs and image studies and agree with findings and care plan noted above. diarrhea improved last night but again had multiple loose stools this am did eat oatmeal this am. reports slurring of speech and right leg numbness and pain. in bed - AAOx3. no resp distress - CTAB. RRR. abdomen soft. speech clear. no focal neurologic deficit. Slurred speech - checked MRI this am - negative. suspect symptom related to oral pathology - atrophic glossitis/thrush related. ? narcotics Diarrhea with neutropenia - diarrhea chemo/radiation related - improving -d/nba abx -continue budesonide taper. Hypotension -from poor PO intake -continue IVF - plasmalyte. bolus prn. Poor appetite - -continue ivf. prn boluses while still with no appetite. -likely from acute exacerbation of radiation induced diarrhea. -empirically treat for thrush - nystatin added. Pancytopenia - wbc and neutrophil counts improving. platelet still low. -continue to hold eliquis. Recent DVT - 02/10. holding eliquis. continue scd. -recheck doppler today with no DVT. SCC of buttock - with excoriation - local care. -oxycodone for pain control Subjective Patient seen at the bedside today stating she feels a little bit worse today with her fatigue and tiredness. She had about 3 diarrheal bowel movements this morning each within an hour of each other. May have felt a little lightheaded. No overnight events. Review of Systems Review of Systems: As per above Physical Exam Constitutional: WD/WN, vitals as above + thin Respiratory: normal respiratory effort, lungs clear to auscultation Cardiovascular: RRR, no murmur, no edema Gastrointestinal (Abdomen): normal bowel sounds, soft, nontender, no hepatosplenomegaly Psychiatric: A+Ox3, euthymic affect Results & Data Results & Data Vital Signs (Past 12 Hours) Vital Signs Temp Pulse Resp BP BP Pulse Ox O2 Del Method 03/04/24 06:54 36.3 C L 76 16 85/48 L 80/48 L 100 Nasal Cannula 03/03/24 21:20 36.4 C L 63 18 96/54 L 95 Nasal Cannula 03/03/24 20:02 Nasal Cannula O2 Flow Rate 03/04/24 06:54 2.0 03/03/24 21:20 2 03/03/24 20:02 2 Resident Activity Tracking Resident Involvement: Resident Care Provided Care Provided: Adult Hospital Medicine (1) Diarrhea Diarrhea type: unspecified type Qualified Code(s): R19.7 - Diarrhea, unspecif ied (3) Excoriation of buttock Encounter type: initial encounter Qualified Code(s): S30.810A - Abrasion of lower back and pelvis, initial encounter
[2024-03-04] MEDS: PLASMA-LYTE A 500 ML IV ONE ×2 (07:29→13:37)
[2024-03-04 07:43] LABS: Hematocrit (blood only) 26.8 % (37.0-47.0); Hemoglobin 8.9 g/dl (12.0-16.0); Mean Corpuscular Hemoglobin 32.1 pg (25.0-34.0); Mean Corpuscular Hgb Conc 33.2 g/dL (32.0-36.0); Mean Corpuscular Volume 96.8 fL (80.0-100.0); Mean Platelet Volume 11.1 fL (9.4-12.4); Platelet Count 24 K/uL (130-400); RDW Coefficient of Variation 17.8 % (11.5-14.5); RDW Standard Deviation 56.8 fL (36.4-46.3); Red Blood Count 2.77 M/uL (4.20-5.40); White Blood Count 4.29 K/ul (4.8-10.8)
[2024-03-04 08:05] LABS: ALC (manual) 0.04 K/uL (1.2-3.4); ANC (manual) 3.65 K/uL (1.4-6.5); Acanthocytes 2+; Eosinophils # (manual) 0.04 K/uL (0-0.50); Eosinophils % (manual) 1 %; Lymphocytes # (manual) 0.04 K/uL (1.2-3.4); Lymphocytes % (manual) 1 %; Metamyelocytes # (manual) 0.17 K/uL (0-0); Metamyelocytes % (manual) 4 %; Monocytes # (manual) 0.26 K/uL (0.11-0.59); Monocytes % (manual) 6 %; Myelocytes # (manual) 0.13 K/uL (0-0); Myelocytes % (manual) 3 %; Neutrophils # (manual) 3.65 K/uL (1.40-6.50); Neutrophils % (manual) 85 %; Toxic Granulation 2+
[2024-03-04 08:51] LABS: Calcium 7.1 mg/dl (8.6-10.3); Potassium 3.3 mmol/L (3.5-5.1)
[2024-03-04 08:57] LABS: BUN Creatinine Ratio 24.2 (10-20); Creatinine Clr Calc Pharmacy 23.7 ml/min; Est GFR (African American) 35.7 ml/min; Est GFR (Non-African American) 30.8 ml/min
--- NOTE | 2024-03-04 11:52 | Magnetic Resonance Report ---
Brain MRI WITHOUT CONTRAST HISTORY: New onset slur speech, RLE numbness TECHNIQUE: Multiplanar multisequence MRI of the brain was performed without the use of contrast. COMPARISON STUDY: None. FINDINGS: There is no mass, hematoma, midline shift, or acute infarct. The paranasal sinuses are mj r. The mastoid air cells are clear. The ventricles and sulci demonstrate mild age-related involutiona l changes. Scattered foci of T2 hyperintensity seen within the periventricular and subcortical white matter are nonspecific but suggestive of mild microvascular ischemic changes. The major vascular flow voids at the skull base are well-maintained. IMPRESSION: No acute infarct or intracranial hemorrhage. ACT 112: Negative or not required by law. Electronically signed by: Hudson Lr M.D. 03/04/2024 11:50 AM
--- NOTE | 2024-03-04 14:21 | XRay Report ---
XR chest 1V portable HISTORY: Shortness of breath COMPARISON: 02/29/2024. FINDINGS: No pneumothorax. The cardiac silhouette remains mildly enlarged. There is a left subclavian Port-A-Cath which terminates in the proximal SVC. Slightly rotated study. Small bilateral pleural ef fusions are new compared to the prior study. Bibasilar linear densities favor subsegmental atelectasi s. There is mild central pulmonary vascular congestion without overt edema. IMPRESSION: 1. Cardiomegaly with mild congestive change. 2. Small bilateral pleural effusions. ACT 112: Negative or not required by law. Electronically signed by: Hudson Lr M.D. 03/04/2024 2:20 PM
[2024-03-04] MEDS: POTASSIUM CHLORIDE CRTAB 20 MEQ TABCR PO STA (16:30)
[2024-03-05 06:26] LABS: Hematocrit (blood only) 25.2 % (37.0-47.0); Hemoglobin 8.6 g/dl (12.0-16.0); Mean Corpuscular Hemoglobin 32.8 pg (25.0-34.0); Mean Corpuscular Hgb Conc 34.1 g/dL (32.0-36.0); Mean Corpuscular Volume 96.2 fL (80.0-100.0); Mean Platelet Volume 11.8 fL (9.4-12.4); Platelet Count 21 K/uL (130-400); RDW Standard Deviation 57.1 fL (36.4-46.3); Red Blood Count 2.62 M/uL (4.20-5.40)
[2024-03-05 06:44] LABS: Albumin Globulin Ratio 0.8 (0.9-2); Albumin Level 1.7 gm/dl (3.4-5.0); BUN Creatinine Ratio 22.9 (10-20); Bilirubin,Total 0.4 mg/dl (0.2-1.0); Calcium 7.1 mg/dl (8.6-10.3); Creatinine Clr Calc Pharmacy 21.3 ml/min; Est GFR (African American) 31.3 ml/min; Globulin 2.1 gm/dl (2.5-4.0); Potassium 3.5 mmol/L (3.5-5.1); Total Protein 3.8 gm/dl (6.0-8.3)
--- NOTE | 2024-03-05 07:35 | Hospitalist Progress Note ---
"Date of Service March 05, 2024 Assessment & Plan (1) Diarrhea: Plan: Samantha is an 79F w/ PMH of SCC of buttock/rectal mass, HTN, and prior DVT who presented with 2 days of profuse, watery diarrhea. 03/05/24 Patient transitioned to ICU status for ongoing care. Dyspnea | Hypotension - Patient's hypotension typically responds well to fluid boluses Now patient is fluid overloaded on exam and symptomatic - 03/04: patient noting increased dyspnea, CXR obtained, showing pulmonary congestion and pleural effusions - 03/05: acute worsening of dyspnea, IVF discontinued, CXR obtained showing increased pulmonary congestion Symptoms progressing to chest pressure, pain radiating to back, and torso pain - Patient likely to benefit from diuresis, but BPs remain too soft to tolerate diuresis on the floor Hypotension thought to be related to ongoing diarrhea - Case reviewed with ICU attending who accepted patient STAT Echocardiogram, BNP, and cortisol level obtained prior to transfer 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 diff negative CRP increased from admission 3.48-> 9.41 Cefepime/Flagyl empirically through 03/03 - Hematology consulted, appreciate recommendations - Continue Budesonide taper and antidiarrheals - Avoid rectal tube placement d/t risk of perforation - IVF discontinued (patient now hypervolemic and symptomatic) - PO intake remains poor, continue Boost supplementation w/ meals Neutropenia a/w Chemotherapy - Last dose of chemo > 2 weeks ago - Patient with pancytopenia, moderate neutropenia. - She is afebrile, non-toxic in appearance. Likely secondary to chemotherapy. - Continue neutropenic precautions Excoriation of Buttock a/w Radiation Therapy - Wound care q shift - Continue silver sulfadiazine cream at home dose - Turn and position q 2 hours for skin protection - May benefit from barrier cream - Continue home Oxycodone 5mg q4-6hrs prn for pain DVT Prophylaxis - Bilateral LE venous doppler performed on 02/11/24 with venous thrombus within the left gastrocnemius vein which extends for 5.4 cm in length - Repeat b/l LE doppler 03/03 without any clots - Hold Apixaban 2.5mg po BID due to thrombocytopenia Asymptomatic bacteruria - UA appears infectious w/o symptoms, culture growing E. faecalis - Patient remains afebrile, hypotension thought to be a/w ongoing diarrhea m oreso than sepsis Hypoxia (New onset 1-2 L requirement this admission) - CXR On admission w/ bilateral lower opacities, CTAP w/o signs of infection (outpatient PFTs, recommended to eval for COPD) Procal negative - Potential atelectasis on imaging, incentive spirometry encouraged - Duonebs ordered PRN, w/ benefit per patient DVT ppx: Eliquis held due to thrombocytopenia while under 50k FEN/GI: Regular Code Status: Full Dispo: Transfer to ICU (2) Neutropenia: (3) Excoriation of buttock: (4) DVT (deep venous thrombosis): (5) Hypertension: (6) Asymptomatic bacteriuria: (7) Hypoxia: (8) Thrombocytopenia: Admission and Anticipated Discharge Date Admission Date: February 27, 2024 Supervising Physician Co-Signing Physician Notes Attending Physician Supervision Note: I independently interviewed and examined the patient and verified the perla history and physical, reviewed labs and image studies and agree with findings and care plan noted above. diarrhea improved again no appetite this am. having difficulty breathing. in bed - AAOx3. + resp distress. decreased breath sounds at base. RRR. abdomen soft. Dyspnea - sec to fluid overload in setting of hypoproteinemia. check echo and bnp. transferred to ICU Hypotension -from poor PO intake and poor circulating volume d/t hypoalbuminemia -ICU for pressor support. Diarrhea with neutropenia - diarrhea chemo/radiation related - improving -d/nba abx -continue budesonide taper. Poor appetite - -sec to acute exacerbation of radiation induced diarrhea. -empirically treat for thrush - nystatin added. -dietary is following. -will add multivitamin for possible vitamin def related glossitis contribution. ferritin level from nov - 154. Pancytopenia - wbc and neutrophil counts improving. platelet still low. -continue to hold eliquis. Recent DVT - 02/10. holding eliquis. continue scd. -recheck doppler today with no DVT. SCC of buttock - with excoriation - local care. -oxycodone for pain control SCD Subjective 03/05: 0830 Patient notes that dyspnea today is significantly worse than yesterday, stating that she awakened and her chest felt heavy. In addition, patient feels as though her lower extremities are swollen. She denies chest pain, has a mild headache, but no lightheadedness. She has had no loose bowel movements yes today. No acute overnight events. 1000 Patient notes increasing chest discomfort with pain radiating into her back. She notes that her torso hurts. Dyspnea ongoing. Physical Exam Physical Exam: Gen: NAD, pleasant but tearful HEENT: Supple, no LAD, no thyromegaly, no JVD Resp:Non-labored, bilateral crackles in lung bases, no wheezing CV:RRR, normal S1/S2, no M/R/G Abd: Soft, non-distended, no TTP, normoactive bowels, no masses Extr: 2+ dp bilaterally, 1+ pitting edema bilaterally Skin: No rashes lesions or erythema Results & Data Results & Data Vital Signs (Past 12 Hours) Vital Signs Temp Pulse Resp BP BP Pulse Ox O2 Del Method 03/05/24 07:26 63 17 97/62 L 03/05/24 07:12 36.4 C L 63 16 91/53 L 99 Nasal Cannula 03/04/24 22:02 36.3 C L 63 18 91/50 L 100 Nasal Cannula 03/04/24 20:30 Nasal Cannula O2 Flow Rate 03/05/24 07:26 03/05/24 07:12 2.0 03/04/24 22:02 2.0 03/04/24 20:30 2 Diagnostic Findings Chest X-Ray 03/04/24 13:33 XR chest 1V portable HISTORY: Shortness of breath COMPARISON: 02/29/2024. FINDINGS: No pneumothorax. The cardiac silhouette remains mildly enlarged. There is a left subclavian Port-A-Cath which terminates in the proximal SVC. Slightly rotated study. Small bilateral pleural effusions are new compared to the prior study. Bibasilar linear densities favor subsegmental atelectasis. There is mild central pulmonary vascular congestion without overt edema. IMPRESSION: 1. Cardiomegaly with mild congestive change. 2. Small bilateral pleural effusions. Chest X-Ray 03/05/24 09:29 XR chest 1V portable CLINICAL HISTORY: Increased dyspnea TECHNIQUE: Single frontal radiograph of the chest was obtained. Comparison: Comparison is made to chest radiograph 03/04/2024 FINDINGS: Exam is limited by underpenetration. Lines and tubes are stable. The cardiomediastinal silhouette is stable. Prominence and cephalization of the vasculature is seen. Small bilateral pleural effusions are seen. IMPRESSION: Limited exam due to underpenetration. Small bilateral pleural effusions are again seen. (1) Diarrhea Diarrhea type: unspecified type Qualified Code(s): R19.7 - Diarrhea, unspecified (3) Excoriation of buttock Encounter type: initial encounter Qualified Code(s): S30.810A - Abrasion of lower back and pelvis, initial encounter"
[2024-03-05 07:54] LABS: Basophils # (auto) 0.02 K/uL (0.00-0.20); Basophils % (auto) 0.5 %; Echinocytes 1+; Eosinophils # (auto) 0.11 K/uL (0.00-0.50); Eosinophils % (auto) 2.8 %; Immature Granulocytes # (auto) 0.27 K/uL (0.01-0.20); Immature Granulocytes % (auto) 6.9 %; Lymphocytes # (auto) 0.23 K/uL (1.20-3.40); Lymphocytes % (auto) 5.9 %; Monocytes # (auto) 0.45 K/uL (0.11-0.59); Monocytes % (auto) 11.5 %; Neutrophils # (auto) 2.82 K/uL (1.40-6.50); Neutrophils % (auto) 72.4 %; Toxic Granulation 1+
--- NOTE | 2024-03-05 10:14 | XRay Report ---
XR chest 1V portable CLINICAL HISTORY: Increased dyspnea TECHNIQUE: Single frontal radiograph of the chest was obtained. Comparison: Comparison is made to chest radiograph 03/04/2024 FINDINGS: Exam is limited by underpenetration. Lines and tubes are stable. The cardiomediastinal silhouette is stable. Prominence and cephalization of the vasculature is seen. Small bilateral pleural effusions ar e seen. IMPRESSION: Limited exam due to underpenetration. Small bilateral pleural effusions are again seen. ACT 112: Negative or not required by law. Electronically signed by: Kennedy Faye M.D. 03/05/2024 10:12 AM
[2024-03-05] MEDS: NOREPINEPHRINE/D5W 4 MG/250 ML PLCT IV SCH (11:00)
[2024-03-05 12:05] LABS: iSTAT Allen Test Pass; iSTAT Art Bld Gas pCO2 Correct 35 mmHg (35-46); iSTAT Art Bld Gas pH Corrected 7.307 (7.35-7.45); iSTAT Arterial Blood Gas HCO3 18 meg/L (19-24); iSTAT Arterial Blood Gas pCO2 36 mmHg (35-46); iSTAT Arterial Blood Gas pO2 65 mmHg (80-95); iSTAT Arterial Blood Gas pO2 C 63; iSTAT Carbon Dioxide 19 mmol/L (24-31); iSTAT Hematocrit 23 % (37-47); iSTAT Hemoglobin 7.8 g/dl (12.0-16.0); iSTAT Potassium 3.6 mmol/L (3.3-5.0); iSTAT Site R Radial; iSTAT Sodium 136 mmol/L (135-144)
--- NOTE | 2024-03-05 13:04 | Critical Care Consultation ---
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 Was hypotensive on the floor and developing pleural effusion. Sent to ICU for vasopressor support Neuro - [facility] ICU: Negative Cardiac - -- Shock Sepsis likely playing a role given the recent enterocolitis Random cortisol 22 Continue with vasopressor support to keep MAP greater than 65 -- History of blood clot in the left gastrocnemius vein It extended to 5.4 cm on 02/21/2024 Repeat Doppler 03/03/2024 negative for any blood clots Respiratory - -- Acute hypoxic respiratory failure Likely secondary to small bilateral pleural effusion BNP 506 O2 supplementation to keep O2 saturation between 90-92% GI - -- Enterocolitis with diarrhea Continue with antibiotics Stool bio fire was negative for everything 02/27/2024 RENAL/LYTES - -- SHENG Follow-up urine lites Monitor BUN/creatinine Avoid nephrotoxic medications Strict ins and outs ENDO - Continue with ICU hyperglycemia protocol HEME - -- Pancytopenia Likely chemo induced Continue to trend ID - -- Enterocolitis Could be from chemo versus radiation Continue with antibiotics for the time being --Prophylaxis VTE: Apixaban on hold, IPC GI: Pantoprazole Lines: Left-sided port Diet: Cardiac/renal Plan: In/out: +25 L since coming to the hospital, urine output is not adequately measured Will put a Butler catheter in for strict in and out Start the patient on vasopressor Follow-up 2D echo I have personally spent 62 minutes of critical care time in the direct management of this patient. This is a life/limb threatening event. This includes time spent evaluating patient, direct bedside care, chart review, placing orders, interpretation of diagnostic studies, discussion with consultants, patient, and family members, as well as other required patient management activities. This time is exclusive of all separately billable procedures, and teaching time and separate from and in addition to any other critical care service time. History of Present Illness Attending Physician: Pauly Winters MD History of Present Illness 79-year-old female was admitted to the hospital for generalized weakness and diarrhea Past medical history: Squamous cell carcinoma of the anal canal, on chemotherapy ICU was consulted patient was hypotensive on the floor At the time of examination in the ICU. Patient systolic blood pressure was in the low 90s with MAP in the mid 50s. She was lethargic but answering all the questions appropriately She denied any chest pain, no headache, no nausea, no vomiting, no abdominal pain, had 2 bouts of loose bowel movement today. Shortness of breath stated is getting better compared to the morning. Has been afebrile Social history: Greater than [id number] smoking history Allergies Allergy/AdvReac Type Severity Reaction Status Date / Time No Known Allergies Allergy Verified 02/26/24 22:04 Home Medications Medication Instructions Recorded Confirmed Type atenolol 100 mg tablet 100 mg PO .DAILY @ 1130 07/02/23 02/26/24 History meclizine 25 mg tablet 25 mg PO BID PRN Vertigo 07/02/23 02/26/24 History pantoprazole 40 mg tablet,delayed 40 mg PO QAM 01/11/24 02/26/24 History release vitamin A and D (Sween Cream 1 applic topical 6XD PRN Skin 01/11/24 02/26/24 History topical) Irritation ondansetron HCl 8 mg tablet 8 mg PO Q8H PRN Nausea 01/17/24 02/26/24 History prochlorperazine maleate 10 mg 10 mg PO Q6H PRN Nausea And 01/17/24 02/26/24 History tablet (Compazine) Vomiting silver sulfadiazine 1 % topical 1 applic topical BID irritation of 01/24/24 02/26/24 Rx cream (Silvadene) anal area #85 grams gabapentin 100 mg capsule 100 mg PO TID 02/07/24 02/26/24 History apixaban 2.5 mg tablet (Eliquis) 2.5 mg PO Q12H 02/14/24 02/26/24 History diphenoxylate-atropine 2.5 1 tab PO Q6H PRN diarrhea #12 tabs 02/20/24 02/26/24 Rx mg-0.025 mg tablet (Lomotil) Patient History Medical History Primary squamous cell carcinoma of anal canal Fatigue Hemorrhoids Allergic rhinitis Seasonal allergies Loose stools Hx of cervical cancer Hx 50 years ago, no chemo or radiation Hx of vertigo Intermittent, no recent issues Hypertension Surgical History Port-A-Cath in place (01/13/24) Insertion of Access Port with Fluoroscopy-Left Subclavian(Left) - Josh Goel DO H/O flexible sigmoidoscopy 11/02/23, [facility] History of esophagogastroduodenoscopy Hx of colonoscopy 10/25/23 Hx of breast lump removal benign Hx of vein stripping H/O: hysterectomy Family History Daughter Ulcerative colitis Denies family history of Crohn's disease Colorectal cancer Social History Smoking Status: Current every day smoker Tobacco Type: Cigarettes Age Started Using Tobacco: 13; packs per day: 0.5; Cigarettes Per Day: 4-5; Second Hand Exposure: No; Do You Dip or Chew Tobacco: No; Hx Alcohol Use: No Hx Substance Use: No Preferred Language: Kosovan Communication Ability: Effective Therapeutic Assistant Required: No Beliefs That Will Affect Care: None Current Living Situation: Spouse Feels Safe at Home: Yes Safety Concerns: Feels Safe At This Time Diet: regular during the past year weight has: decreased > 10 lbs Assistive Devices: Cane and Walker Review of Systems 2 Review of Systems: All systems reviewed & are unremarkable except as noted in HPI & below Physical Exam 2 Physical Exam: Constitutional: No acute distress, frail-appearing HEENT: EOMI, PERRLA, arcus senilis bilaterally Respiratory system: Decreased air entry bilaterally, no wheeze, rhonchi, positive crackles bilaterally CVS: S1-S2 positive, no murmurs or gallops Abdomen: Soft, nontender, nondistended, positive bowel sounds x4 Extremities: +2 pulses bilaterally radialis/ dorsalis pedis, no cyanosis, +1 pitting edema bilateral lower extremity Neuro: Awake alert oriented x3 Psych: Normal mood and affect G/U: No Butler Skin: no rashes, warm and dry Lymphatic: no cervical or axillary lymphadenopathy Results & Data Results & Data Vital Signs (Past 12 Hours) Vital Signs Temp Pulse Resp BP BP Pulse Ox O2 Del Method 03/05/24 10:22 76 18 88/54 L 95 Nasal Cannula 03/05/24 07:31 Nasal Cannula 03/05/24 07:26 63 17 97/62 L 03/05/24 07:12 36.4 C L 63 16 91/53 L 99 Nasal Cannula O2 Flow Rate 03/05/24 10:22 2 03/05/24 07:31 2 03/05/24 07:26 03/05/24 07:12 2.0 Laboratory Results 03/05/24 05:31 03/05/24 05:31 Coding Level of Care Code 53663 CRITICAL CARE 1ST 30-74M Diagnoses Hypoxia R09.02 DVT (deep venous thrombosis) I82.409 Pancytopenia D61.818 SHENG (acute kidney injury) N17.9 Anal squamous cell carcinoma C21.0 Shock circulatory R57.9
[2024-03-05] MEDS: MULTIVITAMIN TAB PO SCH (14:30)
[2024-03-05] MEDS: NOREPINEPHRINE/D5W 4 MG/250 ML IV ONE (15:37)
[2024-03-05 17:18] LABS: Appearance Urine Turbid (Clear); Bacteria Urine Automated None Seen (None Seen); Bilirubin Urine Negative (Negative); Blood Urine 2+ (Negative); Cast Urine Automated >20 /lpf (0-2); Color Urine Yellow; Glucose Urine UA Negative (Negative); Ketones Urine Trace (Negative); Leukocyte Esterase Urine Negative (Negative); Nitrite Urine Negative (Negative); Protein Urine 2+ (Negative); RBC Urine Automated 0-2 /hpf (0-2); Urobilinogen Urine Negative (Negative); WBC Urine Automated 0-5 /hpf (0-5)
[2024-03-05] MEDS: STAT IV Infusion **Titration per Protocol STA (17:24)
[2024-03-05 17:26] LABS: Creatinine Urine Random 60.1 mg/dl; Potassium Random Urine 31.5 mmol/L
[2024-03-05 17:30] LABS: Granular Casts Urine Present /lpf (None Prsent)
--- NOTE | 2024-03-05 19:14 | XCELERA ---
[id number] [id number]
[2024-03-06 05:02] LABS: Albumin Globulin Ratio 0.8 (0.9-2); Albumin Level 1.9 gm/dl (3.4-5.0); BUN Creatinine Ratio 22.1 (10-20); Bilirubin,Total 0.3 mg/dl (0.2-1.0); Calcium 7.4 mg/dl (8.6-10.3); Creatinine Clr Calc Pharmacy 18.7 ml/min; Est GFR (African American) 26.8 ml/min; Est GFR (Non-African American) 23.1 ml/min; Globulin 2.3 gm/dl (2.5-4.0); Potassium 3.2 mmol/L (3.5-5.1); Total Protein 4.2 gm/dl (6.0-8.3)
[2024-03-06 05:48] LABS: Hematocrit (blood only) 23.9 % (37.0-47.0); Hemoglobin 8.1 g/dl (12.0-16.0); Mean Corpuscular Hgb Conc 33.9 g/dL (32.0-36.0); Mean Corpuscular Volume 94.5 fL (80.0-100.0); Nucleated RBC # (auto) 0.02 K/uL (0.00-0.12); Nucleated RBC % (auto) 0.6 %; Platelet Count 22 K/uL (130-400); RDW Coefficient of Variation 17.8 % (11.5-14.5); RDW Standard Deviation 56.4 fL (36.4-46.3); Red Blood Count 2.53 M/uL (4.20-5.40); White Blood Count 3.46 K/ul (4.8-10.8)
[2024-03-06] MEDS: POTASSIUM CHLORIDE CRTAB 20 MEQ TABCR PO STA (05:56)
[2024-03-06 06:03] LABS: Basophils # (auto) 0.02 K/uL (0.00-0.20); Basophils % (auto) 0.6 %; Eosinophils # (auto) 0.01 K/uL (0.00-0.50); Eosinophils % (auto) 0.3 %; Immature Granulocytes # (auto) 0.22 K/uL (0.01-0.20); Immature Granulocytes % (auto) 6.4 %; Lymphocytes # (auto) 0.15 K/uL (1.20-3.40); Lymphocytes % (auto) 4.3 %; Monocytes # (auto) 0.44 K/uL (0.11-0.59); Monocytes % (auto) 12.7 %; Neutrophils # (auto) 2.62 K/uL (1.40-6.50); Neutrophils % (auto) 75.7 %; Polychromasia 2+; Toxic Granulation 1+
[2024-03-06] MEDS: PLASMA-LYTE A 1,000 ML IV SCH (07:02)
--- NOTE | 2024-03-06 07:15 | Hospitalist Progress Note ---
"Date of Service March 06, 2024 Assessment & Plan (1) Diarrhea: Plan: Samantha is an 79F w/ PMH of SCC of buttock/rectal mass, HTN, and prior DVT who presented with 2 days of profuse, watery diarrhea. 03/05/24 Patient transitioned to ICU status for ongoing care. Dyspnea | Hypotension - Patient's hypotension typically responds well to fluid boluses. +25 L since admission, though urine output not accurately measured. - 03/04: patient noting increased dyspnea, CXR obtained, showing pulmonary congestion and pleural effusions - 03/05: acute worsening of dyspnea, IVF discontinued, CXR obtained showing increased pulmonary congestion Symptoms progressing to chest pressure, pain radiating to back, and torso pain - Patient likely to benefit from diuresis, but BPs remain too soft to tolerate diuresis on the floor Hypotension thought to be related to ongoing diarrhea -Patient is currently in the ICU receiving pressors. BNP 506, on 1L NC sating well. ECHO pending -Fluids restarted in the ICU due to SHENG. 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 diff negative CRP increased from admission 3.48-> 9.41 Cefepime/Flagyl empirically through 03/03 - Hematology consulted, appreciate recommendations - Continue Budesonide taper and antidiarrheals - Avoid rectal tube placement d/t risk of perforation - IVF discontinued, restarted in ICU due to SHENG. - PO intake remains poor, continue Boost supplementation w/ meals SHENG -Increase in BUN/creatinine, urine output slowly improved. -Started on IV fluids in the ICU. Neutropenia a/w Chemotherapy - Last dose of chemo > 2 weeks ago - Patient with pancytopenia, moderate neutropenia. - She is afebrile, non-toxic in appearance. Likely secondary to chemotherapy. - Continue neutropenic precautions Excoriation of Buttock a/w Radiation Therapy - Wound care q shift - Continue silver sulfadiazine cream at home dose - Turn and position q 2 hours for skin protection - May benefit from barrier cream - Continue home Oxycodone 5mg q4-6hrs prn for pain DVT Prophylaxis - Bilateral LE venous doppler performed on 02/11/24 with venous thrombus within the left gastrocnemius vein which extends for 5.4 cm in length - Repeat b/l LE doppler 03/03 without any clots - Hold Apixaban 2.5mg po BID due to thrombocytopenia. Asymptomatic bacteruria - UA appears infectious w/o symptoms, culture growing E. faecalis - Patient remains afebrile, hypotension thought to be a/w ongoing diarrhea moreso than sepsis Hypoxia (New onset 1-2 L requirement this admission) - CXR On admission w/ bilateral lower opacities, CTAP w/o signs of infection (outpatient PFTs, recommended to eval for COPD) Procal negative - Potential atelectasis on imaging, incentive spirometry encouraged - Duonebs ordered PRN, w/ benefit per patient DVT ppx: Eliquis held due to thrombocytopenia while under 50k FEN/GI: Regular Code Status: Full Dispo: ICU (2) Neutropenia: (3) Excoriation of buttock: (4) DVT (deep venous thrombosis): (5) Hypertension: (6) Asymptomatic bacteriuria: (7) Hypoxia: (8) Thrombocytopenia: Admission and Anticipated Discharge Date Admission Date: February 27, 2024 Supervising Physician Co-Signing Physician Notes chart reviewed, case d/w dr beasley. ICU managing care and input greatly appreciated. will continue to follow but ICU will continue w primary management. pt sitting up in bed, family at bedside. Dyspnea - sec to fluid overload in setting of hypoproteinemia. ICU management Hypotension -from poor PO intake and poor circulating volume d/t hypoalbuminemia -ICU with ongoing pressor support. Diarrhea with neutropenia - diarrhea chemo/radiation related Poor appetite Pancytopenia Recent DVT - 02/10. SCC of buttock - with excoriation - local care. otherwise as per ICU Subjective Patient seen bedside this morning. Patient states currently in the ICU. She complains of diarrhea and SOB. Currently requiring 1 L nasal cannula. Review of Systems Review of Systems: All systems reviewed & are unremarkable except as noted in Subjective Physical Exam Physical Exam: Gen: NAD, pleasant but tearful HEENT: Supple, no LAD, no thyromegaly, no JVD Resp:Non-labored, clear bilaterally, no wheezing, rales, or rhonchi CV:RRR, normal S1/S2, no M/R/G Abd: Soft, non-distended, no TTP, normoactive bowels, no masses Extr: 2+ dp bilaterally, 1+ pitting edema bilaterally Skin: No rashes lesions or erythema Results & Data Results & Data Vital Signs (Past 12 Hours) Vital Signs Temp Pulse Pulse Resp BP BP Pulse Ox 03/06/24 06:00 65 16 110/57 L 98 03/06/24 05:30 55 L 14 114/52 L 95 03/06/24 05:00 55 L 14 119/50 L 97 03/06/24 04:30 58 L 14 113/53 L 95 03/06/24 04:00 36.7 C 61 14 116/56 L 95 03/06/24 03:30 56 L 14 126/59 L 99 03/06/24 03:01 57 L 13 129/60 99 03/06/24 02:30 62 19 125/56 L 97 03/06/24 02:00 57 L 17 128/58 L 96 03/06/24 01:30 65 16 122/78 99 03/06/24 01:00 58 L 13 118/56 L 98 03/06/24 00:30 57 L 12 132/54 L 99 03/06/24 00:03 36.5 C 69 20 110/48 L 97 03/05/24 23:30 62 13 106/52 L 98 03/05/24 23:00 60 13 102/54 L 99 03/05/24 22:30 62 14 114/49 L 99 03/05/24 22:06 63 18 107/51 L 99 03/05/24 21:33 65 17 114/63 98 03/05/24 21:06 67 20 104/55 L 96 03/05/24 20:00 36.6 C 67 23 112/57 L 97 03/05/24 20:00 03/05/24 19:30 65 12 111/56 L 96 O2 Del Method O2 Flow Rate 03/06/24 06:00 Nasal Cannula 1 03/06/24 05:30 Room Air 03/06/24 05:00 Room Air 03/06/24 04:30 Room Air 03/06/24 04:00 Room Air 03/06/24 03:30 Nasal Cannula 2 03/06/24 03:01 Nasal Cannula 2 03/06/24 02:30 Nasal Cannula 2 03/06/24 02:00 Nasal Cannula 2 03/06/24 01:30 Nasal Cannula 2 03/06/24 01:00 Nasal Cannula 2 03/06/24 00:30 Nasal Cannula 2 03/06/24 00:03 Nasal Cannula 2 03/05/24 23:30 Nasal Cannula 2 03/05/24 23:00 Nasal Cannula 2 03/05/24 22:30 Nasal Cannula 2 03/05/24 22:06 Nasal Cannula 2 03/05/24 21:33 Nasal Cannula 2 03/05/24 21:06 Nasal Cannula 2 03/05/24 20:00 Nasal Cannula 2 03/05/24 20:00 Nasal Cannula 2 03/05/24 19:30 Nasal Cannula 2 (1) Diarrhea Diarrhea type: unspecified type Qualified Code(s): R19.7 - Diarrhea, unspecified (3) Excoriation of buttock Encounter type: initial encounter Qualified Code(s): S30.810A - Abrasion of lower back and pelvis, initial encounter"
[2024-03-06] MEDS: PIPERACILLIN/TAZOBACTAM 4.5 GM in DEXTROSE 5% MINI-B 100 ML IV ONE (08:33)
[2024-03-06] MEDS: BUDESONIDE EC 3 MG CAP PO SCH (08:35)
--- NOTE | 2024-03-06 09:21 | Critical Care Progress Note ---
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 Was hypotensive on the floor and developing pleural effusion. Sent to ICU for vasopressor support Neuro - [facility] ICU: Negative Cardiac - -- Shock Sepsis likely playing a role given the recent enterocolitis Random cortisol 22 Continue with vasopressor support to keep MAP greater than 65 -- History of blood clot in the left gastrocnemius vein It extended to 5.4 cm on 02/21/2024 Repeat Doppler 03/03/2024 negative for any blood clots Respiratory - -- Acute hypoxic respiratory failure Likely secondary to small bilateral pleural effusion BNP 506 O2 supplementation to keep O2 saturation between 90-92% GI - -- Enterocolitis with diarrhea Continue with antibiotics Stool bio fire was negative 02/27/2024 RENAL/LYTES - -- SHENG Slow increase in BUN/creatinine, urine output mildly improved. -Unclear if she is intravascularly down will obtain additional data to help elucidate Mild hypokalemia: Repleted; additional 40 mEq this afternoon secondary to ongoing GI output. ENDO - Continue with ICU hyperglycemia protocol HEME - -- Pancytopenia with additional acute blood loss anemia secondary to GI losses in setting of anal squamous cell Likely chemo induced Continue to trend ID - -- Enterocolitis Could be from chemo versus radiation -BioFire negative Continue with antibiotics for the time being --Prophylaxis VTE: Apixaban on hold, IPC GI: Pantoprazole Lines: Left-sided port Diet: Cardiac/renal I have personally spent 50 minutes of critical care time in the direct management of this patient. This is a life/limb threatening event. This includes time spent evaluating patient, direct bedside care, chart review, placing orders, interpretation of diagnostic studies, discussion with consultants, patient, and family members, as well as other required patient management activities. This time is exclusive of all separately billable procedures, and teaching time and separate from and in addition to any other critical care service time. Admission and Anticipated Discharge Date Admission Date: February 27, 2024 Subjective Does not feel well, no specific pain, ongoing GI losses. Physical Exam Physical Exam: General: Alert. nontoxic. Skin: Warm, dry, Head: Atraumatic Ears, nose, mouth and throat: airway patent Cardiovascular: Normal peripheral perfusion Respiratory: no respiratory distress Gastrointestinal: Non distended Musculoskeletal: No deformity Results & Data Results & Data Vital Signs (Past 12 Hours) Vital Signs Temp Pulse Pulse Resp BP BP Pulse Ox 03/06/24 06:00 65 16 110/57 L 98 03/06/24 05:30 55 L 14 114/52 L 95 03/06/24 05:00 55 L 14 119/50 L 97 03/06/24 04:30 58 L 14 113/53 L 95 03/06/24 04:00 36.7 C 61 14 116/56 L 95 03/06/24 03:30 56 L 14 126/59 L 99 03/06/24 03:01 57 L 13 129/60 99 03/06/24 02:30 62 19 125/56 L 97 03/06/24 02:00 57 L 17 128/58 L 96 03/06/24 01:30 65 16 122/78 99 03/06/24 01:00 58 L 13 118/56 L 98 03/06/24 00:30 57 L 12 132/54 L 99 03/06/24 00:03 36.5 C 69 20 110/48 L 97 03/05/24 23:30 62 13 106/52 L 98 03/05/24 23:00 60 13 102/54 L 99 03/05/24 22:30 62 14 114/49 L 99 03/05/24 22:06 63 18 107/51 L 99 03/05/24 21:33 65 17 114/63 98 O2 Del Method O2 Flow Rate 03/06/24 06:00 Nasal Cannula 1 03/06/24 05:30 Room Air 03/06/24 05:00 Room Air 03/06/24 04:30 Room Air 03/06/24 04:00 Room Air 03/06/24 03:30 Nasal Cannula 2 03/06/24 03:01 Nasal Cannula 2 03/06/24 02:30 Nasal Cannula 2 03/06/24 02:00 Nasal Cannula 2 03/06/24 01:30 Nasal Cannula 2 03/06/24 01:00 Nasal Cannula 2 03/06/24 00:30 Nasal Cannula 2 03/06/24 00:03 Nasal Cannula 2 03/05/24 23:30 Nasal Cannula 2 03/05/24 23:00 Nasal Cannula 2 03/05/24 22:30 Nasal Cannula 2 03/05/24 22:06 Nasal Cannula 2 03/05/24 21:33 Nasal Cannula 2 Critical Care Results & Data Vital Signs (Past 12 Hours) Vital Signs Temp Pulse Pulse Resp BP BP Pulse Ox 03/06/24 06:00 65 16 110/57 L 98 03/06/24 05:30 55 L 14 114/52 L 95 03/06/24 05:00 55 L 14 119/50 L 97 03/06/24 04:30 58 L 14 113/53 L 95 03/06/24 04:00 36.7 C 61 14 116/56 L 95 03/06/24 03:30 56 L 14 126/59 L 99 03/06/24 03:01 57 L 13 129/60 99 03/06/24 02:30 62 19 125/56 L 97 03/06/24 02:00 57 L 17 128/58 L 96 03/06/24 01:30 65 16 122/78 99 03/06/24 01:00 58 L 13 118/56 L 98 03/06/24 00:30 57 L 12 132/54 L 99 03/06/24 00:03 36.5 C 69 20 110/48 L 97 03/05/24 23:30 62 13 106/52 L 98 03/05/24 23:00 60 13 102/54 L 99 03/05/24 22:30 62 14 114/49 L 99 03/05/24 22:06 63 18 107/51 L 99 03/05/24 21:33 65 17 114/63 98 O2 Del Method O2 Flow Rate 03/06/24 06:00 Nasal Cannula 1 03/06/24 05:30 Room Air 03/06/24 05:00 Room Air 03/06/24 04:30 Room Air 03/06/24 04:00 Room Air 03/06/24 03:30 Nasal Cannula 2 03/06/24 03:01 Nasal Cannula 2 03/06/24 02:30 Nasal Cannula 2 03/06/24 02:00 Nasal Cannula 2 03/06/24 01:30 Nasal Cannula 2 03/06/24 01:00 Nasal Cannula 2 03/06/24 00:30 Nasal Cannula 2 03/06/24 00:03 Nasal Cannula 2 03/05/24 23:30 Nasal Cannula 2 03/05/24 23:00 Nasal Cannula 2 03/05/24 22:30 Nasal Cannula 2 03/05/24 22:06 Nasal Cannula 2 03/05/24 21:33 Nasal Cannula 2 Lab & Micro Results (Past 24 Hours) RBC 2.53 M/uL (4.20-5.40) L 03/06/24 WBC 3.46 K/ul (4.8-10.8) L 03/06/24 Hgb 8.1 g/dl (12.0-16.0) L 03/06/24 Hct 23.9 % (37.0-47.0) L 03/06/24 MCV 94.5 fL (80.0-100.0) 03/06/24 MCH 32.0 pg (25.0-34.0) 03/06/24 MCHC 33.9 g/dL (32.0-36.0) 03/06/24 RDW Standard Deviation 56.4 fL (36.4-46.3) H 03/06/24 RDW Coefficient of Variation 17.8 % (11.5-14.5) H 03/06/24 Plt Count 22 K/uL (130-400) L* 03/06/24 MPV 12.0 fL (9.4-12.4) 03/06/24 Nucleated Red Blood Cells % (auto) 0.6 % 03/06 Nucleated RBC Absolute Count (auto) 0.02 K/uL (0.00-0.12) 0 03/06/24 Neutrophils (%) (Auto) 75.7 % 03/06/24 Lymphocytes (%) (Auto) 4.3 % 03/06/24 Monocytes # (Auto) 0.44 K/uL (0.11-0.59) 03/06/24 Eosinophils # (Auto) 0.01 K/uL (0.00-0.50) 03/06/24 Immature Granulocyte % (Auto) 6.4 % 03/06/24 Neutrophils # (Auto) 2.62 K/uL (1.40-6.50) 03/06/24 Lymphocytes # (Auto) 0.15 K/uL (1.20-3.40) L 03/06/24 Monocytes # (Auto) 0.44 K/uL (0.11-0.59) 03/06/24 Eosinophils # (Auto) 0.01 K/uL (0.00-0.50) 03/06/24 Basophils # (Auto) 0.02 K/uL (0.00-0.20) 03/06/24 Immature Granulocyte # (Auto) 0.22 K/uL (0.01-0.20) H 03/06 Polychromasia 2+ 03/06/24 Toxic Granulation 1+ 03/06/24 Na 137 mmol/L (136-145) 03/06/24 K 3.2 mmol/L (3.5-5.1) L 03/06/24 Cl 108 mmol/L (98-107) H 03/06/24 CO2 22 mmol/L (21-32) 03/06/24 Anion Gap 7 (3-11) 03/06/24 BUN 44 mg/dl (6-23) H 03/06/24 Creatinine 1.99 mg/dl (0.6-1.2) H 03/06/24 Estimated GFR ( Amer) 26.8 ml/min 03/06/24 Estimated GFR (Non-Af Amer) 23.1 ml/min 03/06/24 BUN/Creatinine Ratio 22.1 (10-20) H 03/06/24 Glu 186 mg/dl (70-99(Fasting)) H 03/06/24 Ca 7.4 mg/dl (8.6-10.3) L 03/06/24 Total Bilirubin 0.3 mg/dl (0.2-1.0) 03/06/24 AST 12 U/L (13-39) L 03/06/24 ALT 6 U/L (7-52) L 03/06/24 Alkaline Phosphatase 52 U/L (34-104) 03/06/24 TP 4.2 gm/dl (6.0-8.3) L 03/06/24 Albumin 1.9 gm/dl (3.4-5.0) L 03/06/24 Globulin 2.3 gm/dl (2.5-4.0) L 03/06/24 Albumin/Globulin Ratio 0.8 (0.9-2) L 03/06/24 Calcium Level 7.4 mg/dl (8.6-10.3) L 03/06/24 04:00 Diagnostic Findings (Past 24 Hours) Chest X-Ray 03/05/24 09:29 XR chest 1V portable CLINICAL HISTORY: Increased dyspnea TECHNIQUE: Single frontal radiograph of the chest was obtained. Comparison: Comparison is made to chest radiograph 03/04/2024 FINDINGS: Exam is limited by underpenetration. Lines and tubes are stable. The cardiomediastinal silhouette is stable. Prominence and cephalization of the vasculature is seen. Small bilateral pleural effusions are seen. IMPRESSION: Limited exam due to underpenetration. Small bilateral pleural effusions are again seen. ACT 112: Negative or not required by law. Electronically signed by: Kennedy Faye M.D. 03/05/2024 10:12 AM I & O Totals 24 Hours 03/05/24 03/06/24 03/07/24 06:59 06:59 06:59 Intake Total 3314 / 3314 1686.223 / 1686.223 130.03 / 130.03 Output Total 5 / 464 / 464 Balance 3309 / 3309 1222.223 / 1222.223 130.03 / 130.03 Cumulative 02/26/24 21:13 thru 03/06/24 09:12 Intake Total 87709.753 Output Total 889 Balance 09586.753 RT Ventilator Mngmt (Last Documented) Ventilator Ordered Settings Respiratory Rate 16 03/06/24 06:00 Fraction of Inspired Oxygen 98 03/01/24 22:37 Ventilator - PT Measurements Respiratory Rate 16 Coding Level of Care Code 25690 CRITICAL CARE 1ST 30-74M Diagnoses Hypoxia R09.02 DVT (deep venous thrombosis) I82.409 Pancytopenia D61.818 SHENG (acute kidney injury) N17.9 Anal squamous cell carcinoma C21.0 Shock circulatory R57.9
[2024-03-06] MEDS ORDERED: oxyCODONE HCL IR 5 MG TAB (IMMEDIATE RELEASE) PO PRN (10:19)
[2024-03-06] MEDS: POTASSIUM CHLORIDE CRTAB 20 MEQ TABCR PO ONE (12:20)
[2024-03-06] MEDS: INSULIN ASPART PER UNIT CHARGE SC SCH (12:23)
[2024-03-06] MEDS: PIPERACILLIN/TAZOBACTAM 4.5 GM in DEXTROSE 5% MINI-B 100 ML IV SCH (16:47)
[2024-03-07 04:46] LABS: Albumin Level 1.7 gm/dl (3.4-5.0); Bilirubin,Total 0.3 mg/dl (0.2-1.0); Calcium 7.1 mg/dl (8.6-10.3); Potassium 3.6 mmol/L (3.5-5.1)
[2024-03-07 04:52] LABS: Albumin Globulin Ratio 0.9 (0.9-2); BUN Creatinine Ratio 22.9 (10-20); Creatinine Clr Calc Pharmacy 19.8 ml/min; Est GFR (African American) 28.7 ml/min; Est GFR (Non-African American) 24.8 ml/min; Total Protein 3.7 gm/dl (6.0-8.3)
[2024-03-07 04:57] LABS: Hematocrit (blood only) 21.9 % (37.0-47.0); Hemoglobin 7.6 g/dl (12.0-16.0); Mean Corpuscular Hgb Conc 34.7 g/dL (32.0-36.0); Mean Corpuscular Volume 95.2 fL (80.0-100.0); Mean Platelet Volume 13.7 fL (9.4-12.4); Nucleated RBC # (auto) 0.02 K/uL (0.00-0.12); Nucleated RBC % (auto) 0.5 %; Platelet Count 13 K/uL (130-400); RDW Coefficient of Variation 18.2 % (11.5-14.5); RDW Standard Deviation 55.7 fL (36.4-46.3); White Blood Count 4.07 K/ul (4.8-10.8)
[2024-03-07 05:11] LABS: Basophils # (auto) 0.02 K/uL (0.00-0.20); Basophils % (auto) 0.5 %; Echinocytes 1+; Eosinophils # (auto) 0.07 K/uL (0.00-0.50); Eosinophils % (auto) 1.7 %; Immature Granulocytes # (auto) 0.22 K/uL (0.01-0.20); Immature Granulocytes % (auto) 5.4 %; Lymphocytes # (auto) 0.18 K/uL (1.20-3.40); Lymphocytes % (auto) 4.4 %; Monocytes # (auto) 0.44 K/uL (0.11-0.59); Monocytes % (auto) 10.8 %; Neutrophils # (auto) 3.14 K/uL (1.40-6.50); Neutrophils % (auto) 77.2 %; Ovalocytes 1+
[2024-03-07] MEDS: POTASSIUM CHLORIDE 20 MEQ/15 ML UDC PO STA ×2 (06:21→10:34)
--- NOTE | 2024-03-07 07:28 | Hospitalist Progress Note ---
"Date of Service March 07, 2024 Assessment & Plan (1) Diarrhea: Plan: Samantha is an 79F w/ PMH of SCC of buttock/rectal mass, HTN, and prior DVT who presented with 2 days of profuse, watery diarrhea. 03/05/24 Patient transitioned to ICU status for ongoing care. Dyspnea | Hypotension - Patient's hypotension typically responds well to fluid boluses. +25 L since admission, though urine output not accurately measured. - 03/04: patient noting increased dyspnea, CXR obtained, showing pulmonary congestion and pleural effusions - 03/05: acute worsening of dyspnea, IVF discontinued, CXR obtained showing increased pulmonary congestion Symptoms progressing to chest pressure, pain radiating to back, and torso pain - Patient likely to benefit from diuresis, but BPs remain too soft to tolerate diuresis on the floor Hypotension thought to be related to ongoing diarrhea -Patient is currently in the ICU receiving pressors. BNP 506, on 2L NC sating well. Echo showed an EF of 70%, without regional wall motion abnormalities, mild pulmonary hypertension -Fluids restarted in the ICU due to SHENG. -03/07 in ICU : -Remains on pressors, midodrine 5 mg 3 times daily added random cortisol was 22. Remaining on Zosyn for suspected enterocolitis causing sepsis. -Low platelets and pancytopenia, given 1 unit of blood. -Patient with pancytopenia and possible acute blood loss anemia secondary to GI losses in the setting of recent chemo and radiation. -GI consulted, appreciate recommendations. 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 diff negative CRP increased from admission 3.48-> 9.41 Cefepime/Flagyl empirically through 03/03 - Hematology consulted, appreciate recommendations - Continue Budesonide taper - Avoid rectal tube placement d/t risk of perforation - IVF discontinued, restarted in ICU due to SHENG. - PO intake remains poor, continue Boost supplementation w/ meals -GI consulted, appreciate recommendations. SHENG -Increase in BUN/creatinine, urine output slowly improved. -Started on IV fluids in the ICU. -Improving. Neutropenia a/w Chemotherapy - Last dose of chemo > 2 weeks ago - Patient with pancytopenia, moderate neutropenia. - She is afebrile, non-toxic in appearance. Likely secondary to chemotherapy. - Continue neutropenic precautions Excoriation of Buttock a/w Radiation Therapy - Wound care q shift - Continue silver sulfadiazine cream at home dose - Turn and position q 2 hours for skin protection - May benefit from barrier cream - Continue home Oxycodone 5mg q4-6hrs prn for pain DVT Prophylaxis - Bilateral LE venous doppler performed on 02/11/24 with venous thrombus within the left gastrocnemius vein which extends for 5.4 cm in length - Repeat b/l LE doppler 03/03 without any clots - Hold Apixaban 2.5mg po BID due to thrombocytopenia. Asymptomatic bacteruria - UA appears infectious w/o symptoms, culture growing E. faecalis - Patient remains afebrile, hypotension thought to be a/w ongoing diarrhea moreso than sepsis Hypoxia (New onset 1-2 L requirement this admission) - CXR On admission w/ bilateral lower opacities, CTAP w/o signs of infection (outpatient PFTs, recommended to eval for COPD) Procal negative - Potential atelectasis on imaging, incentive spirometry encouraged - Duonebs ordered PRN, w/ benefit per patient DVT ppx: Eliquis held due to thrombocytopenia while under 50k FEN/GI: Regular Code Status: Full Dispo: ICU (2) Neutropenia: (3) Excoriation of buttock: (4) DVT (deep venous thrombosis): (5) Hypertension: (6) Asymptomatic bacteriuria: (7) Hypoxia: (8) Thrombocytopenia: Admission and Anticipated Discharge Date Admission Date: February 27, 2024 Supervising Physician Co-Signing Physician Notes I personally examined the patient and verified all perla points of history and exam, discussed case, and agree with decision making with Dr Walker Family present at the bedside. ICU present at the bedside as well. Joint discussion with myself and ICU attending. Discussed overall working diagnoses and prognoses as well as different courses of care. Discussed how to discern best plans for the patient in line with her goals. Discussed deconditioning and malnutrition as well as critical need for nutrition if she has anything other than a purely palliative goal of care. Discussed acute diagnoses and ongoing management as well. Answered all questions to the best of our ability and to their satisfaction. Vitals noted. She is fairly sleepy awakens a little during conversation but does not really interact much. Does not appear to be in distress. Breathing unlabored no accessory muscle use good effort. Skin shows no rashes no pallor or icterus. Neuro without focal deficits. Hypotension /hypovolemic/septic shock all related to neutropenia/diarrhea/infectious colitis -from poor PO intake and poor circulating volume d/t hypoalbuminemia - Now stabilizingoff pressors, continue current management. Hopefully out of ICU soon Diarrhea with neutropenia - diarrhea chemo/radiation related as well as what appears to be sepsis from a secondary enterocolitiscontinue antibiotics and supportive care. Poor appetitewith what sounds to be severe protein calorie malnutrition over the last year and significant weight lossDiscussed how this is unfortunately a critical factor in her overall prognosis, will continue to educate on nutrition, calculate basal energy expenditure, ask dietitian for assistance, follow closely. Pancytopenia Recent DVT - 02/10. eliquis SCC of buttock - with excoriation - local care. otherwise as per ICU Subjective Patient seen bedside this morning. States that she feels very fatigued. Also having GI concerns. Nurse overnight states some black stool. Review of Systems Review of Systems: All systems reviewed & are unremarkable except as noted in Subjective Physical Exam Physical Exam: Gen: NAD, lethargic HEENT: Supple, no LAD, no thyromegaly, no JVD Resp:Non-labored, clear bilaterally, no wheezing, rales, or rhonchi CV:RRR, normal S1/S2, no M/R/G Abd: Soft, non-distended, no TTP, normoactive bowels, no masses Extr: 2+ dp bilaterally, Skin: No rashes lesions or erythema Results & Data Results & Data Vital Signs (Past 12 Hours) Vital Signs Temp Pulse Resp BP Pulse Ox O2 Del Method O2 Flow Rate 03/07/24 06:29 36.6 C 03/07/24 06:00 59 L 14 97 03/07/24 05:30 98/49 L 03/07/24 05:30 55 L 15 100 03/07/24 05:00 55 L 13 99 03/07/24 04:30 72 15 94 03/07/24 04:00 52 L 20 100 03/07/24 03:30 100/53 L 03/07/24 03:30 55 L 13 100 03/07/24 02:48 51 L 18 100 03/07/24 02:30 112/59 L 03/07/24 02:00 61 13 03/07/24 01:30 50 L 14 03/07/24 01:00 36.7 C 03/07/24 01:00 52 L 14 03/07/24 00:30 52 L 14 03/07/24 00:09 58 L 13 100 03/07/24 00:00 119/58 L 03/06/24 23:57 58 L 17 100 03/06/24 23:30 52 L 14 03/06/24 23:12 54 L 14 03/06/24 22:30 59 L 13 99 03/06/24 22:00 54 L 14 99 03/06/24 21:30 60 17 95 03/06/24 21:12 52 L 15 03/06/24 20:45 57 L 14 03/06/24 20:30 92/44 L 03/06/24 20:09 54 L 15 100 03/06/24 20:00 36.6 C 03/06/24 20:00 56 L 25 H 100 03/06/24 20:00 Nasal Cannula 2 03/06/24 19:30 55 L 15 100 03/06/24 19:30 88/45 L (1) Diarrhea Diarrhea type: unspecified type Qualified Code(s): R19.7 - Diarrhea, unspecified (3) Excoriation of buttock Encounter type: initial encounter Qualified Code(s): S30.810A - Abrasion of lower back and pelvis, initial encounter"
--- NOTE | 2024-03-07 08:58 | Critical Care Progress Note ---
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 Was hypotensive on the floor and developing pleural effusion. Sent to ICU for vasopressor support Neuro - [facility] ICU: Negative Cardiac - -- Shock: Improving Sepsis likely playing a role given the recent enterocolitis Random cortisol 22 Adding midodrine 5 mg 3 times daily, reviewed echo: Appearance of hyperdynamic characteristics -- History of blood clot in the left gastrocnemius vein It extended to 5.4 cm on 02/21/2024 Repeat Doppler 03/03/2024 negative for any blood clots Respiratory - -- Acute hypoxic respiratory failure Likely secondary to small bilateral pleural effusion BNP 506 O2 supplementation to keep O2 saturation between 90-92%: Wean as tolerated GI - -- Enterocolitis with diarrhea - Continue with antibiotics -Consult GI given ongoing diarrhea and question need for imaging to confirm radiation proctitis. If this represents solely radiation proctitis defer to GI for treatment availability. -Reviewed GI consultation, repeat stool studies ordered, not candidate for contrasted CT given acute kidney injury Stool bio fire was negative 02/27/2024 Poor p.o. intake. I think this in combination with diarrhea necessitates us to continue crystalloid expansion given ongoing stool losses -Scaling Plasma-Lyte back to 75 mL/h from 120 and encourage increased p.o. intake. RENAL/LYTES - -- SHENG Slow increase in BUN/creatinine, urine output mildly improved. -Volume expansion with 500 mL of 5% albumin today ENDO - Continue with ICU hyperglycemia protocol HEME - -- Pancytopenia with additional acute blood loss anemia secondary to GI losses in setting of anal squamous cell Likely chemo induced, Continue to trend: Check fibrinogen given ongoing losses I suspect that this is a production issue given chemotherapy ID - -- Enterocolitis Could be from chemo versus radiation -BioFire negative Patient completed 6 days of therapy with cefepime and Flagyl for possible viral infection. 2 days with no antibiotic coverage, antibiotics were reinstituted for possible septic picture as the patient needed vasoactive's, in the differential was also low preload secondary to ongoing stool output. -Repeat blood cultures are no growth to date. Patient has risk factor of indwelling port and relative immunocompromise secondary to recent chemotherapy, patient remains leukopenic, no administration of Neupogen. -Vasoactive requirements have gone down but have not completely resolved. Cortisol marginal at 22.3 -Continue antibiotics for total of 48 hours for possible sepsis. I do not feel this is bacterially mediated, she has completed essentially a full treatment course of cefepime and Flagyl and BioFire stool was negative. -At this time I feel the hypotension is from preload dependence. --Prophylaxis VTE: Apixaban on hold secondary to significant thrombocytopenia: Chemo prophylaxis contraindicated, IPC GI: Pantoprazole Lines: Left-sided port Diet: Cardiac/renal I had an extensive discussion with daughter, granddaughter, patient at bedside regarding goals of care. We are updating CODE STATUS to reflect no heroics in event of cardiac arrest. At this time the patient still would like to pursue aggressive treatment towards possible cure. Family is interested in possible palliative care options, this was also discussed with hospitalist team and will defer further engagement regarding possible palliative treatments to them. I have personally spent 80 minutes of critical care time in the direct management of this patient. This is a life/limb threatening event. This includes time spent evaluating patient, direct bedside care, chart review, placing orders, interpretation of diagnostic studies, discussion with consultants, sharifa arechiga, and family members, as well as other required patient management activities. This time is exclusive of all separately billable procedures, and teaching time and separate from and in addition to any other critical care service time. Admission and Anticipated Discharge Date Admission Date: February 27, 2024 Subjective Feeling generally down, does not feel improved compared to yesterday. Physical Exam Physical Exam: General: Alert. nontoxic. Skin: Warm, dry, Head: Atraumatic Ears, nose, mouth and throat: airway patent Cardiovascular: Normal peripheral perfusion Respiratory: no respiratory distress Gastrointestinal: Non distended Musculoskeletal: No deformity Results & Data Results & Data Vital Signs (Past 12 Hours) Vital Signs Temp Pulse Resp BP BP Pulse Ox O2 Del Method 03/07/24 08:48 36.4 C L 03/07/24 08:36 73 15 93 Nasal Cannula 03/07/24 08:30 75/48 L 03/07/24 08:00 87/51 L 03/07/24 07:39 77 19 97 03/07/24 07:30 95/50 L 03/07/24 07:00 52 L 15 100 03/07/24 06:29 36.6 C 03/07/24 06:00 59 L 14 97 03/07/24 05:30 98/49 L 03/07/24 05:30 55 L 15 100 03/07/24 05:00 55 L 13 99 03/07/24 04:30 72 15 94 03/07/24 04:00 52 L 20 100 03/07/24 03:30 100/53 L 03/07/24 03:30 55 L 13 100 03/07/24 02:48 51 L 18 100 03/07/24 02:30 112/59 L 03/07/24 02:00 61 13 100 03/07/24 01:30 50 L 14 100 03/07/24 01:00 36.7 C 03/07/24 01:00 52 L 14 100 03/07/24 00:30 52 L 14 100 03/07/24 00:09 58 L 13 100 03/07/24 00:00 119/58 L 03/06/24 23:57 58 L 17 100 03/06/24 23:30 52 L 14 100 03/06/24 23:12 54 L 14 100 03/06/24 22:30 59 L 13 99 03/06/24 22:00 54 L 14 99 03/06/24 21:30 60 17 95 03/06/24 21:12 52 L 15 100 O2 Flow Rate 03/07/24 08:48 03/07/24 08:36 2 03/07/24 08:30 03/07/24 08:00 03/07/24 07:39 03/07/24 07:30 03/07/24 07:00 03/07/24 06:29 03/07/24 06:00 03/07/24 05:30 03/07/24 05:30 03/07/24 05:00 03/07/24 04:30 03/07/24 04:00 03/07/24 03:30 03/07/24 03:30 03/07/24 02:48 03/07/24 02:30 03/07/24 02:00 03/07/24 01:30 03/07/24 01:00 03/07/24 01:00 03/07/24 00:30 03/07/24 00:09 03/07/24 00:00 03/06/24 23:57 03/06/24 23:30 03/06/24 23:12 03/06/24 22:30 03/06/24 22:00 03/06/24 21:30 03/06/24 21:12 Critical Care Results & Data Vital Signs (Past 12 Hours) Vital Signs Temp Pulse Resp BP BP Pulse Ox O2 Del Method 03/07/24 08:48 36.4 C L 03/07/24 08:36 73 15 93 Nasal Cannula 03/07/24 08:30 75/48 L 03/07/24 08:00 87/51 L 03/07/24 07:39 77 19 97 03/07/24 07:30 95/50 L 03/07/24 07:00 52 L 15 100 03/07/24 06:29 36.6 C 03/07/24 06:00 59 L 14 97 03/07/24 05:30 98/49 L 03/07/24 05:30 55 L 15 100 03/07/24 05:00 55 L 13 99 03/07/24 04:30 72 15 94 03/07/24 04:00 52 L 20 100 03/07/24 03:30 100/53 L 03/07/24 03:30 55 L 13 100 03/07/24 02:48 51 L 18 100 03/07/24 02:30 112/59 L 03/07/24 02:00 61 13 100 03/07/24 01:30 50 L 14 100 03/07/24 01:00 36.7 C 03/07/24 01:00 52 L 14 100 03/07/24 00:30 52 L 14 100 03/07/24 00:09 58 L 13 100 03/07/24 00:00 119/58 L 03/06/24 23:57 58 L 17 100 03/06/24 23:30 52 L 14 100 03/06/24 23:12 54 L 14 100 03/06/24 22:30 59 L 13 99 03/06/24 22:00 54 L 14 99 03/06/24 21:30 60 17 95 03/06/24 21:12 52 L 15 100 O2 Flow Rate 03/07/24 08:48 03/07/24 08:36 2 03/07/24 08:30 03/07/24 08:00 03/07/24 07:39 03/07/24 07:30 03/07/24 07:00 03/07/24 06:29 03/07/24 06:00 03/07/24 05:30 03/07/24 05:30 03/07/24 05:00 03/07/24 04:30 03/07/24 04:00 03/07/24 03:30 03/07/24 03:30 03/07/24 02:48 03/07/24 02:30 03/07/24 02:00 03/07/24 01:30 03/07/24 01:00 03/07/24 01:00 03/07/24 00:30 03/07/24 00:09 03/07/24 00:00 03/06/24 23:57 03/06/24 23:30 03/06/24 23:12 03/06/24 22:30 03/06/24 22:00 03/06/24 21:30 03/06/24 21:12 Lab & Micro Results (Past 24 Hours) RBC 2.30 M/uL (4.20-5.40) L 03/07/24 WBC 4.07 K/ul (4.8-10.8) L 03/07/24 Hgb 7.6 g/dl (12.0-16.0) L 03/07/24 Hct 21.9 % (37.0-47.0) L 03/07/24 MCV 95.2 fL (80.0-100.0) 03/07/24 MCH 33.0 pg (25.0-34.0) 03/07/24 MCHC 34.7 g/dL (32.0-36.0) 03/07/24 RDW Standard Deviation 55.7 fL (36.4-46.3) H 03/07/24 RDW Coefficient of Variation 18.2 % (11.5-14.5) H 03/07/24 Plt Count 13 K/uL (130-400) L* 03/07/24 MPV 13.7 fL (9.4-12.4) H 03/07/24 Nucleated Red Blood Cells % (auto) 0.5 % 03/07 Nucleated RBC Absolute Count (auto) 0.02 K/uL (0.00-0.12) 0 03/07/24 Neutrophils (%) (Auto) 77.2 % 03/07/24 Lymphocytes (%) (Auto) 4.4 % 03/07/24 Monocytes # (Auto) 0.44 K/uL (0.11-0.59) 03/07/24 Eosinophils # (Auto) 0.07 K/uL (0.00-0.50) 03/07/24 Immature Granulocyte % (Auto) 5.4 % 03/07/24 Neutrophils # (Auto) 3.14 K/uL (1.40-6.50) 03/07/24 Lymphocytes # (Auto) 0.18 K/uL (1.20-3.40) L 03/07/24 Monocytes # (Auto) 0.44 K/uL (0.11-0.59) 03/07/24 Eosinophils # (Auto) 0.07 K/uL (0.00-0.50) 03/07/24 Basophils # (Auto) 0.02 K/uL (0.00-0.20) 03/07/24 Immature Granulocyte # (Auto) 0.22 K/uL (0.01-0.20) H 03/07 Echinocytes 1+ 03/07/24 Ovalocytes 1+ 03/07/24 Na 138 mmol/L (136-145) 03/07/24 K 3.6 mmol/L (3.5-5.1) 03/07/24 Cl 110 mmol/L (98-107) H 03/07/24 CO2 21 mmol/L (21-32) 03/07/24 Anion Gap 7 (3-11) 03/07/24 BUN 43 mg/dl (6-23) H 03/07/24 Creatinine 1.88 mg/dl (0.6-1.2) H 03/07/24 Estimated GFR ( Amer) 28.7 ml/min 03/07/24 Estimated GFR (Non-Af Amer) 24.8 ml/min 03/07/24 BUN/Creatinine Ratio 22.9 (10-20) H 03/07/24 Glu 95 mg/dl (70-99(Fasting)) 03/07/24 Ca 7.1 mg/dl (8.6-10.3) L 03/07/24 Total Bilirubin 0.3 mg/dl (0.2-1.0) 03/07/24 AST 14 U/L (13-39) 03/07/24 ALT 5 U/L (7-52) L 03/07/24 Alkaline Phosphatase 42 U/L (34-104) 03/07/24 TP 3.7 gm/dl (6.0-8.3) L 03/07/24 Albumin 1.7 gm/dl (3.4-5.0) L 03/07/24 Globulin 2.0 gm/dl (2.5-4.0) L 03/07/24 Albumin/Globulin Ratio 0.9 (0.9-2) 03/07/24 Calcium Level 7.1 mg/dl (8.6-10.3) L 03/07/24 04:21 Microbiology 03/06/24 07:00 Aerobic Blood Culture - Preliminary Blood No growth in Aerobic bottle after 24 hours. Anaerobic Blood Culture - Preliminary No growth in Anaerobic bottle after 24 hours. 03/06/24 07:03 Aerobic Blood Culture - Preliminary Blood No growth in Aerobic bottle after 24 hours. Anaerobic Blood Culture - Preliminary No growth in Anaerobic bottle after 24 hours. I & O Totals 24 Hours 03/06/24 03/07/24 03/08/24 06:59 06:59 06:59 Intake Total 1686.223 / 4078.584 6771.547 / 2896.547 955.537 / 955.537 Output Total 464 / 464 884 / 884 Balance 1222.223 / 7887.239 3650.547 / 2012.547 955.537 / 955.537 Cumulative 02/26/24 21:13 thru 03/07/24 08:08 Intake Total 00828.807 Output Total 1773 Balance 64483.807 RT Ventilator Mngmt (Last Documented) Ventilator Ordered Settings Respiratory Rate 15 03/07/24 08 :36 Fraction of Inspired Oxygen 98 03/01/24 22:37 Ventilator - PT Measurements Respiratory Rate 15 Coding Level of Care Code 72846 CRITICAL CARE 1ST 30-74M Additional Critical Care Time Additional 30min Critical Care Time: Yes - 51377 Diagnoses Hypoxia R09.02 DVT (deep venous thrombosis) I82.409 Pancytopenia D61.818 SHENG (acute kidney injury) N17.9 Anal squamous cell carcinoma C21.0 Shock circulatory R57.9 Additional Codes Critical Care Time - Additional 30min Critical Care Time: Yes - 58519 ([id number])
[2024-03-07] MEDS ORDERED: SODIUM CHLORIDE 0.9% 250 ML IV PRN (09:38)
[2024-03-07] MEDS: ALBUMIN 5% 250 ML IV SCH (10:31)
[2024-03-07] MEDS: MIDODRINE HCL 2.5 MG TAB PO SCH (10:32)
[2024-03-07 10:50] LABS: Reticulocyte % 2.35 % (0.50-2.00); Reticulocytes # 0.06 10^6/uL (0.020-0.100)
[2024-03-07 11:19] LABS: Fibrinogen 425 mg/dl (184-400)
--- NOTE | 2024-03-07 12:40 | Gastrointestinal Consultation ---
Date of Consultation March 07, 2024 Assessment & Plan (1) Diarrhea: Patient is an 79 yo female with anal cancer and diarrhea. Potential etiologies include infectious process vs chemo-related (as is common with fluoropyrimidines) vs radiation induced vs other. -Repeat C diff & stool cultures as they were last obtained on 02/27/24. -If no findings on stool studies, advise Imodium or Lomotil up to 8 tablets daily. -Not a candidate for endoscopic evaluation given platelet count; consider repeating CT abd/pelvis with po & IV contrast to exclude new issues, particularly if no other findings. -Could consider a low residue/low lactose diet to aid in symptom management, however I do not want to restrict patient's diet any more than is necessary for symptom improvement. There is evidence to suggest 5FU treatment may lead to lactose-intolerance. Supervising Physician Co-Signing Physician Notes Agree with SASKIA Kelley as above Interviewed and examined patient and agree with above Abd: Soft, NT, ND, +BS Continue current therapy and supportive care History of Present Illness Reason for Consultation: "ongoing losses, ? radiation colitis vs infection" Attending Physician: Bonifacio Barragan DO History of Present Illness Patient is an 79 yo female currently in the ICU on pressors due to sepsis/hypotension. She presented to the hospital with diarrhea. She has a history of sqaumous cell carcinoma of the anal canal diagnosed in October 2023. She has been undergoing chemotherapy (5-FU) with oncology and daily radiation therapy. Diarrhea began on 02/25/24. She notes she did not have diarrhea prior to beginning chemo & radiation. She notes <6 episodes daily. She was taking Imodium and Lomotil at various points at various dosages, but family did acknowledge that it was not always clear how much/how often/if she was taking it. CT ab domen/pelvis without po contrast questioned an enterocolitis on 02/25/25. Findings indicated: IMPRESSION: 1. Stomach is predominantly decompressed with only minimal fluid in the stomach. Asymmetric hyperenhancement of the gastric mucosa in the distal body and pyloric channel is new from the previous exam. Distal gastritis is not excluded. 2. No evidence for bowel obstruction. Subtle asymmetric abnormal mucosal thickening involving several small bowel loops in the left lateral abdomen is suggested. Mucosal prominence of the decompressed sigmoid colon is more prominent than on the previous examination. Findings suggest enterocolitis. 3. The previously noted asymmetric mucosal thickening of the distal anorectal region is less prominent but still measures up to 1 cm in diameter. 4. Mild free fluid in the abdomen and pelvis is new from the previous examination. No loculation. This is presumed reactive from the bowel process. 5. The kidneys are similar to the previous examination with predominantly hypoattenuating cysts noted bilaterally. There is a stable appearing relatively hyperattenuating ovoid cortical structure involving the posterior lateral midpole right kidney with internal Hounsfield units of 86, similar to the previous examination. A similar structure is noted along the inferolateral left kidney with similar density. The structure is stable, measuring 19 mm. ACR White Paper guidelines (Herts, et al. JACR 2018; 15(2):264-273) recommend nonemergent MRI or CT without and with intravenous contrast, if not previously evaluated. She was discharged home during that ED visit. She returned today for ongoing diarrhea. She has been on antibitotics (Cefepime & Flagyl) x 6 days. Antibiotics were stopped for 2 days and she became septic. She is now on Zosyn. She has occasional BRBPR. She is anticoagulated with Eliquis. Patient is pancytopenic. Platelet count is 13. BUN/Cr 43/1.88. LFTs unremarkable. Patient is prescribed Lomotil at home, but is not currently using an antidiarrheal. K is 3.6 today. Per chart, it appears she is prescribed 3 mg po Budesonide daily as part of a taper she was given. Allergies Allergy/AdvReac Type Severity Reaction Status Date / Time No Known Allergies Allergy Verified 02/26/24 22:04 Home Medications Medication Instructions Recorded Confirmed Type atenolol 100 mg tablet 100 mg PO .DAILY @ 1130 07/02/23 02/26/24 History meclizine 25 mg tablet 25 mg PO BID PRN Vertigo 07/02/23 02/26/24 History pantoprazole 40 mg tablet,delayed 40 mg PO QAM 01/11/24 02/26/24 History release vitamin A and D (Sween Cream 1 applic topical 6XD PRN Skin 01/11/24 02/26/24 History topical) Irritation ondansetron HCl 8 mg tablet 8 mg PO Q8H PRN Nausea 01/17/24 02/26/24 History prochlorperazine maleate 10 mg 10 mg PO Q6H PRN Nausea And 01/17/24 02/26/24 History tablet (Compazine) Vomiting silver sulfadiazine 1 % topical 1 applic topical BID irritation of 01/24/24 02/26/24 Rx cream (Silvadene) anal area #85 grams gabapentin 100 mg capsule 100 mg PO TID 02/07/24 02/26/24 History apixaban 2.5 mg tablet (Eliquis) 2.5 mg PO Q12H 02/14/24 02/26/24 History diphenoxylate-atropine 2.5 1 tab PO Q6H PRN diarrhea #12 tabs 02/20/24 02/26/24 Rx mg-0.025 mg tablet (Lomotil) Patient History Medical History Primary squamous cell carcinoma of anal canal Fatigue Hemorrhoids Allergic rhinitis Seasonal allergies Loose stools Hx of cervical cancer Hx 50 years ago, no chemo or radiation Hx of vertigo Intermittent, no recent issues Surgical History Port-A-Cath in place (01/13/24) Insertion of Access Port with Fluoroscopy-Left Subclavian(Left) - Josh Goel, DO H/O flexible sigmoidoscopy 11/02/23, [facility] History of esophagogastroduodenoscopy Hx of colonoscopy 10/25/23 Hx of breast lump removal benign Hx of vein stripping H/O: hysterectomy Family History Daughter Ulcerative colitis Denies family history of Crohn's disease Colorectal cancer Social History Smoking Status: Current every day smoker Tobacco Type: Cigarettes Age Started Using Tobacco: 13; packs per day: 0.5; Cigarettes Per Day: 4-5; Second Hand Exposure: No; Do You Dip or Chew Tobacco: No; Hx Alcohol Use: No Hx Substance Use: No Preferred Language: Albanian Communication Ability: Effective Tarper Required: No Beliefs That Will Affect Care: None Current Living Situation: Spouse Feels Safe at Home: Yes Safety Concerns: Feels Safe At This Time Diet: regular during the past year weight has: decreased > 10 lbs Assistive Devices: Cane and Walker Review of Systems Constitutional: no fever Respiratory: no cough and no dyspnea Cardiovascular: no chest pain Gastrointestinal: + diarrhea/loose stools Psychiatric: no problem reported Hematologic / Lymphatic: no unexplained weight loss Physical Exam Constitutional: well developed Respiratory: normal respiratory effort Cardiovascular: Rate/Rhythm: regular rate Gastrointestinal (Abdomen): normal bowel sounds, soft, nontender, no hepatosplenomegaly Psychiatric: Orientation: alert and oriented x 3 Results & Data Vital Signs (Past 12 Hours) Vital Signs Temp Pulse Resp BP BP Pulse Ox O2 Del Method 03/07/24 12:25 36.4 C L 65 18 111/52 L 99 03/07/24 12:05 36.7 C 67 20 107/51 L 98 03/07/24 10:55 104/53 L 03/07/24 10:54 34.7 C L 67 19 96 03/07/24 10:45 106/51 L 03/07/24 10:45 68 20 94 Nasal Cannula 03/07/24 10:36 68 21 93 03/07/24 10:09 60 17 100 03/07/24 09:48 62 22 96 03/07/24 09:03 72 18 96 Nasal Cannula 03/07/24 09:00 106/63 03/07/24 08:54 65 18 95 03/07/24 08:48 36.4 C L 03/07/24 08:36 73 15 93 Nasal Cannula 03/07/24 08:30 75/48 L 03/07/24 08:00 Nasal Cannula 03/07/24 08:00 87/51 L 03/07/24 07:39 77 19 97 03/07/24 07:30 95/50 L 03/07/24 07:00 52 L 15 100 03/07/24 06:29 36.6 C 03/07/24 06:00 59 L 14 97 03/07/24 05:30 98/49 L 03/07/24 05:30 55 L 15 100 03/07/24 05:00 55 L 13 99 03/07/24 04:30 72 15 94 03/07/24 04:00 52 L 20 100 03/07/24 03:30 100/53 L 03/07/24 03:30 55 L 13 100 03/07/24 02:48 51 L 18 100 03/07/24 02:30 112/59 L 03/07/24 02:00 61 13 100 03/07/24 01:30 50 L 14 100 03/07/24 01:00 36.7 C 03/07/24 01:00 52 L 14 100 O2 Flow Rate 03/07/24 12:25 2 03/07/24 12:05 03/07/24 10:55 03/07/24 10:54 03/07/24 10:45 03/07/24 10:45 2 03/07/24 10:36 03/07/24 10:09 03/07/24 09:48 03/07/24 09:03 2 03/07/24 09:00 03/07/24 08:54 03/07/24 08:48 03/07/24 08:36 2 03/07/24 08:30 03/07/24 08:00 2 03/07/24 08:00 03/07/24 07:39 03/07/24 07:30 03/07/24 07:00 03/07/24 06:29 03/07/24 06:00 03/07/24 05:30 03/07/24 05:30 03/07/24 05:00 03/07/24 04:30 03/07/24 04:00 03/07/24 03:30 03/07/24 03:30 03/07/24 02:48 03/07/24 02:30 03/07/24 02:00 03/07/24 01:30 03/07/24 01:00 03/07/24 01:00 PG Care Time/CCT Total # of Minutes Spent Total Time Spent with Patient: Total time spent is greater than 50% in coordination of care (as documented) at patient's floor/unit and/or counseling patient: Coding Level of Care Code 19484 INT INP/OBS CARE 75MIN Diagnoses Diarrhea R19.7 Diarrhea type: unspecified type (1) Diarrhea Diarrhea type: unspecified type Qualified Code(s): R19.7 - Diarrhea, unspecified
--- NOTE | 2024-03-07 15:48 | Billing Data ---
Date of Service March 07, 2024 Coding Level of Care Code 47205 SUB INP/OBS CARE
[2024-03-08 05:18] LABS: BUN Creatinine Ratio 23.2 (10-20); Calcium 7.5 mg/dl (8.6-10.3); Creatinine Clr Calc Pharmacy 18.8 ml/min; Est GFR (Non-African American) 23.3 ml/min; Phosphorus 2.7 mg/dl (2.5-4.9); Potassium 3.7 mmol/L (3.5-5.1)
[2024-03-08 06:23] LABS: Hematocrit (blood only) 24.1 % (37.0-47.0); Hemoglobin 8.5 g/dl (12.0-16.0); Mean Corpuscular Hemoglobin 32.6 pg (25.0-34.0); Mean Corpuscular Hgb Conc 35.3 g/dL (32.0-36.0); Mean Corpuscular Volume 92.3 fL (80.0-100.0); Mean Platelet Volume 13.3 fL (9.4-12.4); Platelet Count 13 K/uL (130-400); RDW Coefficient of Variation 19.7 % (11.5-14.5); Red Blood Count 2.61 M/uL (4.20-5.40); White Blood Count 4.27 K/ul (4.8-10.8)
--- NOTE | 2024-03-08 06:42 | Hospitalist Progress Note ---
Date of Service March 08, 2024 Assessment & Plan (1) Diarrhea: Plan: Samantha is an 79F w/ PMH of SCC of buttock/rectal mass, HTN, and prior DVT who presented with 2 days of profuse, watery diarrhea. Dyspnea | Hypotension - Patient's hypotension typically responds well to fluid boluses. +25 L since admission, though urine output not accurately measured. - 03/04: patient noting increased dyspnea, CXR obtained, showing pulmonary congestion and pleural effusions - 03/05: acute worsening of dyspnea, IVF discontinued, CXR obtained showing increased pulmonary congestion Symptoms progressing to chest pressure, pain radiating to back, and torso pain - Patient likely to benefit from diuresis, but BPs remain too soft to tolerate diuresis on the floor Hypotension thought to be related to ongoing diarrhea -Patient is currently in the ICU receiving pressors. BNP 506, on 2L NC sating well. Echo showed an EF of 70%, without regional wall motion abnormalities, mild pulmonary hypertension -Fluids restarted in the ICU due to SHENG. -03/07 in ICU : -Remains on pressors, midodrine 5 mg 3 times daily added random cortisol was 22. Remaining on Zosyn for suspected enterocolitis causing sepsis. -Low platelets and pancytopenia, given 1 unit of blood. -Patient with pancytopenia and possible acute blood loss anemia secondary to GI losses in the setting of recent chemo and radiation. -GI consulted, appreciate recommendations. Can do CT abdomen pelvis with p.o. and IV contrast to exclude other issues if symptoms do not improve. - 03/08: Off of pressors, remains on midodrine 5 mg 3 times a day. Is safe to be discharged from the ICU. Did discuss with patient in great detail with family members bedside about hospice care. Patient would like to wait until her entire family is present to have these discussions but is leaning more towards going to the hospice route rather than pursuing further treatment for her cancer. 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 diff negative CRP increased from admission 3.48-> 9.41 Cefepime/Flagyl empirically through 03/03 - Hematology consulted, appreciate recommendations - Continue Budesonide taper - Avoid rectal tube placement d/t risk of perforation - IVF discontinued, restarted in ICU due to SHENG. - PO intake remains poor, continue Boost supplementation w/ meals -GI consulted: -Can do CT abdomen pelvis with p.o. and IV contrast to exclude other issues if symptoms do not improve. -C. difficile collected, if normal can use Imodium or Lomotil up to 8 tablets daily SHENG -Increase in BUN/creatinine, urine output slowly improved. -Started on IV fluids in the ICU. -Improving. Neutropenia a/w Chemotherapy - Last dose of chemo > 2 weeks ago - Patient with pancytopenia, moderate neutropenia. - She is afebrile, non-toxic in appearance. Likely secondary to chemotherapy. - Continue neutropenic precautions Excoriation of Buttock a/w Radiation Therapy - Wound care q shift - Continue silver sulfadiazine cream at home dose - Turn and position q 2 hours for skin protection - May benefit from barrier cream - Continue home Oxycodone 5mg q4-6hrs prn for pain DVT Prophylaxis - Bilateral LE venous doppler performed on 02/11/24 with venous thrombus within the left gastrocnemius vein which extends for 5.4 cm in length - Repeat b/l LE doppler 03/03 without any clots - Hold Apixaban 2.5mg po BID due to thrombocytopenia. Asymptomatic bacteruria - UA appears infectious w/o symptoms, culture growing E. faecalis - Patient remains afebrile, hypotension thought to be a/w ongoing diarrhea moreso than sepsis Hypoxia (New onset 1-2 L requirement this admission) - CXR On admission w/ bilateral lower opacities, CTAP w/o signs of infection (outpatient PFTs, recommended to eval for COPD) Procal negative - Potential atelectasis on imaging, incentive spirometry encouraged - Duonebs ordered PRN, w/ benefit per patient DVT ppx: Eliquis held due to thrombocytopenia while under 50k FEN/GI: Regular Code Status: Full Dispo: PCU/telemetry (2) Neutropenia: (3) Excoriation of buttock: (4) DVT (deep venous thrombosis): (5) Hypertension: (6) Asymptomatic bacteriuria: (7) Hypoxia: (8) Thrombocytopenia: Admission and Anticipated Discharge Date Admission Date: February 27, 2024 Supervising Physician Co-Signing Physician Notes I personally examined the patient and verified all perla points of history and exam, discussed case, and agree with decision making with Dr Walker Feeling a bit better eating a bit better. She discusses that she is afraid to think about chemotherapy or radiation again, and at the same time also seems to be afraid of not treating things. We discussed risks and benefits of both an aggressive and a fully hospice option, and answered all questions to the best my ability. Family present at the bedside. Encouraged patient to talk with her family and pray about the situation, discussed that unfortunately there are no good answers but that we can try to help guide her through the realistic options that are available. Vitals noted. Awake and alert pleasant no distress. Eating. Breathing unlabored no accessory muscle use good effort. Skin without rashes pallor or icterus. Neuro without focal deficits. Cancerextensive discussion of risks and benefits of a hospice versus ongoing aggressive approach. Try to answer all questions to the best my ability and to her satisfaction, as well as be very realistic with the unfortunate details of her situation. Hypotension /hypovolemic/septic shock all related to neutropenia/diarrhea/infectious colitis -from poor PO intake and poor circulating volume d/t hypoalbuminemia - Fortunately this appears stable. Safe/stable for transfer out of ICU. Continue antibiotics and supportive care. Diarrhea with neutropenia - diarrhea chemo/radiation related as well as what appears to be sepsis from a secondary enterocolitiscontinue antibiotics and supportive care. Poor appetitewith what sounds to be severe protein calorie malnutrition over the last year and significant weight loss P.o. intake improved some today. At the same time, I still doubt that she is quite reaching nutrition goals. This will be a serious "rate limiter" in her ability to move forward with any further cancer treatments should she decide that she wants to proceed. Pancytopenia Recent DVT - 02/10. eliquis SCC of buttock - with excoriation - local care. Subjective Patient seen bedside this morning. Improving since yesterday. Off of pressors. Review of Systems Review of Systems: All systems reviewed & are unremarkable except as noted in Subjective Physical Exam Physical Exam: Gen: NAD, lethargic HEENT: Supple, no LAD, no thyromegaly, no JVD Resp:Non-labored, clear bilaterally, no wheezing, rales, or rhonchi CV:RRR, normal S1/S2, no M/R/G Abd: Soft, non-distended, no TTP, normoactive bowels, no masses Extr: 2+ dp bilaterally, Skin: No rashes lesions or erythema Results & Data Results & Data Vital Signs (Past 12 Hours) Vital Signs Temp Pulse Resp BP BP Pulse Ox O2 Del Method 03/08/24 04:00 35.3 C L 51 L 15 98 03/08/24 03:42 35.3 C L 51 L 15 98 03/08/24 03:24 35.3 C L 64 21 97 03/08/24 02:01 104/61 03/08/24 02:00 35.3 C L 57 L 15 100 03/08/24 01:30 35.3 C L 52 L 14 98 03/08/24 01:00 35.3 C L 59 L 17 98 03/08/24 00:42 35.4 C L 53 L 15 100 03/08/24 00:06 35.4 C L 48 L 14 100 03/07/24 23:39 35.4 C L 56 L 14 100 03/07/24 23:01 125/48 L 03/07/24 23:00 35.4 C L 56 L 14 100 03/07/24 22:45 35.4 C L 52 L 15 100 03/07/24 22:45 105/50 L 03/07/24 22:33 35.4 C L 52 L 15 100 03/07/24 22:06 35.4 C L 53 L 17 98 03/07/24 21:45 114/51 L 03/07/24 21:45 35.5 C L 56 L 19 99 03/07/24 21:33 35.5 C L 59 L 15 100 03/07/24 21:03 35.4 C L 54 L 15 100 03/07/24 21:01 118/54 L 03/07/24 20:51 35.5 C L 59 L 18 98 03/07/24 20:42 35.6 C L 66 19 98 03/07/24 20:00 35.5 C L 71 22 96 03/07/24 20:00 134/70 03/07/24 20:00 Nasal Cannula 03/07/24 19:31 117/65 06/04/24 19:30 35.5 C L 63 21 97 03/07/24 19:00 35.3 C L 61 15 98 03/07/24 19:00 133/63 O2 Flow Rate 03/08/24 04:00 03/08/24 03:42 03/08/24 03:24 03/08/24 02:01 03/08/24 02:00 03/08/24 01:30 03/08/24 01:00 03/08/24 00:42 03/08/24 00:06 03/07/24 23:39 03/07/24 23:01 03/07/24 23:00 03/07/24 22:45 03/07/24 22:45 03/07/24 22:33 03/07/24 22:06 03/07/24 21:45 03/07/24 21:45 03/07/24 21:33 03/07/24 21:03 03/07/24 21:01 03/07/24 20:51 03/07/24 20:42 03/07/24 20:00 03/07/24 20:00 03/07/24 20:00 2 03/07/24 19:31 03/07/24 19:30 03/07/24 19:00 03/07/24 19:00 (1) Diarrhea Diarrhea type: unspecified type Qualified Code(s): R19.7 - Diarrhea, unspecified (3) Excoriation of buttock Encounter type: initial encounter Qualified Code(s): S30.810A - Abrasion of lower back and pelvis, initial encounter
[2024-03-08 06:46] LABS: Anisocytosis Present; Basophils # (auto) 0.02 K/uL (0.00-0.20); Basophils % (auto) 0.5 %; Eosinophils # (auto) 0.04 K/uL (0.00-0.50); Eosinophils % (auto) 0.9 %; Immature Granulocytes # (auto) 0.27 K/uL (0.01-0.20); Immature Granulocytes % (auto) 6.3 %; Lymphocytes # (auto) 0.17 K/uL (1.20-3.40); Monocytes # (auto) 0.39 K/uL (0.11-0.59); Monocytes % (auto) 9.1 %; Neutrophils # (auto) 3.38 K/uL (1.40-6.50); Neutrophils % (auto) 79.2 %
[2024-03-08] MEDS: POTASSIUM CHLORIDE 20 MEQ/15 ML UDC PO STA (06:57)
--- NOTE | 2024-03-08 10:10 | Communication Note ---
Date of Service: March 08, 2024 GI is awaiting the result of repeat C diff studies. If no findings, would advise Imodium or Lomotil up to 8 tablets daily.
--- NOTE | 2024-03-08 12:06 | Critical Care Progress Note ---
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 Was hypotensive on the floor and developing pleural effusion. Sent to ICU for vasopressor support Neuro - [facility] ICU: Negative Cardiac - -- Shock: Resolved Adding midodrine 5 mg 3 times daily, reviewed echo: Appearance of hyperdynamic characteristics -- History of blood clot in the left gastrocnemius vein It extended to 5.4 cm on 02/21/2024 Repeat Doppler 03/03/2024 negative for any blood clots Respiratory - -- Acute hypoxic respiratory failure Likely secondary to small bilateral pleural effusion, encourage ambulation and wean as tolerated GI - -- Enterocolitis with diarrhea: Decrease stool output -Finishing antibiotics Stool bio fire was negative 02/27/2024 Poor p.o. intake. I think this in combination with diarrhea necessitates us to continue crystalloid expansion given ongoing stool losses RENAL/LYTES - -- SHENG: Waxing and waning. Renally adjusting medications ENDO - Continue with ICU hyperglycemia protocol HEME - -- Pancytopenia with additional acute blood loss anemia secondary to GI losses in setting of anal squamous cell Likely chemo induced, 1 unit packed red blood cells on 03/07 ID - -- Enterocolitis Could be from chemo versus radiation -BioFire negative, repeat pending per GI recommendation Patient completed 6 days of therapy with cefepime and Flagyl for possible viral infection. 2 days with no antibiotic coverage, antibiotics were reinstituted for possible septic picture as the patient needed vasoactive's, in the differential was also low preload secondary to ongoing stool output. -Discontinue antibiotics today --Prophylaxis VTE: Apixaban on hold secondary to significant thrombocytopenia: Chemo prophylaxis contraindicated, IPC GI: Pantoprazole Lines: Left-sided port Diet: Cardiac/renal CODE STATUS: DO NOT RESUSCITATE in event of cardiac arrest Stable for downgrade out of ICU Admission and Anticipated Discharge Date Admission Date: February 27, 2024 Subjective Feels improved compared to yesterday. No specific requests or complaints Physical Exam Physical Exam: General: Alert. nontoxic. Skin: Warm, dry, Head: Atraumatic Ears, nose, mouth and throat: airway patent Cardiovascular: Normal peripheral perfusion Respiratory: no respiratory distress Gastrointestinal: Non distended Musculoskeletal: No deformity Results & Data Results & Data Vital Signs (Past 12 Hours) Vital Signs Temp Pulse Resp BP Pulse Ox O2 Del Method O2 Flow Rate 03/08/24 07:22 Nasal Cannula 2 03/08/24 07:15 36.4 C L 03/08/24 07:00 60 16 95 Nasal Cannula 2 03/08/24 07:00 124/60 03/08/24 04:00 35.3 C L 51 L 15 98 03/08/24 03:42 35.3 C L 51 L 15 98 03/08/24 03:24 35.3 C L 64 21 97 03/08/24 02:01 104/61 03/08/24 02:00 35.3 C L 57 L 15 100 03/08/24 01:30 35.3 C L 52 L 14 98 03/08/24 01:00 35.3 C L 59 L 17 98 03/08/24 00:42 35.4 C L 53 L 15 100 03/08/24 00:06 35.4 C L 48 L 14 100 Coding Level of Care Code 56268 SUB INP/OBS CARE 3/50MIN Diagnoses Hypoxia R09.02 DVT (deep venous thrombosis) I82.409 Pancytopenia D61.818 SHENG (acute kidney injury) N17.9 Anal squamous cell carcinoma C21.0 Shock circulatory R57.9
--- NOTE | 2024-03-08 18:02 | Billing Data ---
Date of Service March 08, 2024 Coding Level of Care Code 42312 SUB INP/OBS CARE
--- NOTE | 2024-03-09 07:48 | Hospitalist Progress Note ---
"Date of Service March 09, 2024 Assessment & Plan (1) Diarrhea: Plan: Samantha is an 79F w/ PMH of SCC of buttock/rectal mass, HTN, and prior DVT who presented with 2 days of profuse, watery diarrhea. 03/09 update: No significant changes to the plan below did stop fluids due to being fluid overload on physical exam. Did have a discussion with family bedside about goals of care. Patient initially wanted to go the hospice route, though family is concerned about level of nursing support she will receive with hospice. Ultimately it was decided that patient will try rehab and if unsuccessful is willing to transition to hospice due to getting insurance approval for SNF Dyspnea | Hypotension - Patient's hypotension typically responds well to fluid boluses. +25 L since admission, though urine output not accurately measured. - 03/04: patient noting increased dyspnea, CXR obtained, showing pulmonary congestion and pleural effusions - 03/05: acute worsening of dyspnea, IVF discontinued, CXR obtained showing increased pulmonary congestion Symptoms progressing to chest pressure, pain radiating to back, and torso pain - Patient likely to benefit from diuresis, but BPs remain too soft to tolerate diuresis on the floor Hypotension thought to be related to ongoing diarrhea -Patient is currently in the ICU receiving pressors. BNP 506, on 2L NC sating well. Echo showed an EF of 70%, without regional wall motion abnormalities, mild pulmonary hypertension -Fluids restarted in the ICU due to SHENG. -03/07 in ICU : -Remains on pressors, midodrine 5 mg 3 times daily added random cortisol was 22. Remaining on Zosyn for suspected enterocolitis causing sepsis. -Low platelets and pancytopenia, given 1 unit of blood. -Patient with pancytopenia and possible acute blood loss anemia secondary to GI losses in the setting of recent chemo and radiation. -GI consulted, appreciate recommendations. Can do CT abdomen pelvis with p.o. and IV contrast to exclude other issues if symptoms do not improve. - 03/08: Off of pressors, remains on midodrine 5 mg 3 times a day. Is safe to be discharged from the ICU. Did discuss with patient in great detail with family members bedside about hospice care. Patient would like to wait until her entire family is present to have these discussions but is leaning more towards going to the hospice route rather than pursuing further treatment for her cancer. 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 diff negative CRP increased from admission 3.48-> 9.41 Cefepime/Flagyl empirically through 03/03 - Hematology consulted, appreciate recommendations - Continue Budesonide taper - Avoid rectal tube placement d/t risk of perforation - IVF discontinued, restarted in ICU due to SHENG. - PO intake remains poor, continue Boost supplementation w/ meals -GI consulted: -Can do CT abdomen pelvis with p.o. and IV contrast to exclude other issues if symptoms do not improve. -C. difficile collected, if normal can use Imodium or Lomotil up to 8 tablets daily SHENG -Increase in BUN/creatinine, urine output slowly improved. -Started on IV fluids in the ICU. Stopped at this time due to fluid overload on exam. -Improving. Neutropenia a/w Chemotherapy - Last dose of chemo > 2 weeks ago - Patient with pancytopenia, moderate neutropenia. - She is afebrile, non-toxic in appearance. Likely secondary to chemotherapy. - Continue neutropenic precautions Excoriation of Buttock a/w Radiation Therapy - Wound care q shift - Continue silver sulfadiazine cream at home dose - Turn and position q 2 hours for skin protection - May benefit from barrier cream - Continue home Oxycodone 5mg q4-6hrs prn for pain DVT Prophylaxis - Bilateral LE venous doppler performed on 02/11/24 with venous thrombus within the left gastrocnemius vein which extends for 5.4 cm in length - Repeat b/l LE doppler 03/03 without any clots - Hold Apixaban 2.5mg po BID due to thrombocytopenia. Asymptomatic bacteruria - UA appears infectious w/o symptoms, culture growing E. faecalis - Patient remains afebrile, hypotension thought to be a/w ongoing diarrhea moreso than sepsis Hypoxia (New onset 1-2 L requirement this admission) - CXR On admission w/ bilateral lower opacities, CTAP w/o signs of infection (outpatient PFTs, recommended to eval for COPD) Procal negative - Potential atelectasis on imaging, incentive spirometry encouraged - Duonebs ordered PRN, w/ benefit per patient DVT ppx: Eliquis held due to thrombocytopenia while under 50k FEN/GI: Regular Code Status: Full Dispo: PCU/telemetry (2) Neutropenia: (3) Excoriation of buttock: (4) DVT (deep venous thrombosis): (5) Hypertension: (6) Asymptomatic bacteriuria: (7) Hypoxia: (8) Thrombocytopenia: Admission and Anticipated Discharge Date Admission Date: February 27, 2024 Supervising Physician Co-Signing Physician Notes I personally examined the patient and verified all perla points of history and exam, discussed case, and agree with decision making with Dr Walker discussed with family and has clearly decided she would prefer hospice. Vitals noted. Awake and alert pleasant no distress. Breathing unlabored no accessory muscle use good effort. Skin without rashes pallor or icterus. Neuro without focal deficits. Cancer Several days having extensive discussions of risks and benefits of a hospice versus ongoing aggressive approach. hospice plan - after further discussions probably at [facility]) Hypotension /hypovolemic/septic shock all related to neutropenia/diarrhea/infectious colitis -from poor PO intake and poor circulating volume d/t hypoalbuminemia - Fortunately this appears stable. d Diarrhea with neutropenia - diarrhea chemo/radiation related as well as what appears to be sepsis from a secondary enterocolitiscontinue antibiotics and supportive care. lomotil Poor appetitehospice plan Pancytopenia Recent DVT - 02/10. eliquis SCC of buttock - with excoriation - local care. Subjective Patient was seen bedside. Discussed with family about goals of care. States that she is feeling weak today. Still having some diarrhea. Review of Systems Review of Systems: All systems reviewed & are unremarkable except as noted in Subjective Physical Exam Physical Exam: Gen: NAD, lethargic HEENT: Supple, no LAD, no thyromegaly, no JVD Resp:Non-labored, diminished breath sounds bibasilar, no wheezing, rales, or rhonchi CV:RRR, normal S1/S2, no M/R/G Abd: Soft, non-distended, no TTP, normoactive bowels, no masses Extr: 2+ dp bilaterally, bilateral pitting edema Skin: No rashes lesions or erythema Results & Data Results & Data Vital Signs (Past 12 Hours) Vital Signs Temp Pulse Pulse Pulse Resp BP BP 03/09/24 04:15 03/09/24 02:30 36.4 C L 75 18 103/68 03/09/24 01:08 68 99/59 L 03/09/24 00:32 36.4 C L 67 18 97/53 L 03/08/24 22:00 67 17 03/08/24 21:39 55 L 16 03/08/24 21:00 62 18 03/08/24 20:33 58 L 17 03/08/24 20:00 57 L 16 03/08/24 20:00 110/58 L Pulse Ox O2 Del Method O2 Flow Rate 03/09/24 04:15 Nasal Cannula 2 03/09/24 02:30 95 Room Air 03/09/24 01:08 03/09/24 00:32 93 Room Air 03/08/24 22:00 95 03/08/24 21:39 99 03/08/24 21:00 97 03/08/24 20:33 96 03/08/24 20:00 98 03/08/24 20:00 (1) Diarrhea Diarrhea type: unspecified type Qualified Code(s): R19.7 - Diarrhea, unspecified (3) Excoriation of buttock Encounter type: initial encounter Qualified Code(s): S30.810A - Abrasion of lower back and pelvis, initial encounter"
[2024-03-09 08:06] LABS: Hematocrit (blood only) 26.3 % (37.0-47.0); Mean Corpuscular Hemoglobin 31.6 pg (25.0-34.0); Mean Corpuscular Hgb Conc 34.2 g/dL (32.0-36.0); Mean Corpuscular Volume 92.3 fL (80.0-100.0); Mean Platelet Volume 12.8 fL (9.4-12.4); Nucleated RBC # (auto) 0.02 K/uL (0.00-0.12); Nucleated RBC % (auto) 0.6 %; Platelet Count 14 K/uL (130-400); RDW Coefficient of Variation 19.8 % (11.5-14.5); RDW Standard Deviation 54.7 fL (36.4-46.3); Red Blood Count 2.85 M/uL (4.20-5.40); White Blood Count 3.53 K/ul (4.8-10.8)
[2024-03-09 08:08] LABS: BUN Creatinine Ratio 23.1 (10-20); Calcium 7.4 mg/dl (8.6-10.3); Creatinine Clr Calc Pharmacy 17.5 ml/min; Est GFR (African American) 24.8 ml/min; Est GFR (Non-African American) 21.4 ml/min; Magnesium 1.9 mg/dl (1.7-2.4); Phosphorus 2.8 mg/dl (2.5-4.9); Potassium 3.9 mmol/L (3.5-5.1)
[2024-03-09] MEDS ORDERED: DIPHENOXYLATE/ATROPINE 2.5/0.025MG TAB PO PRN ×2 (08:45→14:26)
[2024-03-09 08:55] LABS: Basophils # (auto) 0.03 K/uL (0.00-0.20); Basophils % (auto) 0.8 %; Eosinophils # (auto) 0.03 K/uL (0.00-0.50); Eosinophils % (auto) 0.8 %; Immature Granulocytes # (auto) 0.33 K/uL (0.01-0.20); Immature Granulocytes % (auto) 9.3 %; Lymphocytes # (auto) 0.15 K/uL (1.20-3.40); Lymphocytes % (auto) 4.2 %; Monocytes # (auto) 0.52 K/uL (0.11-0.59); Monocytes % (auto) 14.7 %; Neutrophils # (auto) 2.47 K/uL (1.40-6.50); Neutrophils % (auto) 70.2 %
--- NOTE | 2024-03-09 10:08 | XRay Report ---
XR chest 1V portable HISTORY: Shortness of breath. COMPARISON: Chest 03/05/2024. FINDINGS: No pneumothorax. The cardiac silhouette remains mildly enlarged. There is mild central pulm onary vascular congestion without overt edema. This is similar to the prior study. Small bilateral pl eural effusions and bibasilar densities persist. A left subclavian Port-A-Cath terminates [facility] the [facility]/SVC junction. This remains unchanged. Emphysema is noted. IMPRESSION: 1. Cardiomegaly with mild congestive change persists. 2. Small bilateral pleural effusions and bibasilar densities are also similar to the prior study. ACT 112: Negative or not required by law. Electronically signed by: Hudson Lr M.D. 03/09/2024 10:06 AM
[2024-03-09] MEDS: DIPHENOXYLATE/ATROPINE 2.5/0.025MG TAB PO ONE (15:42)
--- NOTE | 2024-03-09 17:40 | Billing Data ---
Date of Service March 09, 2024 Coding Level of Care Code 95214 SUB INP/OBS CARE MIN
[2024-03-10 06:34] LABS: Hematocrit (blood only) 25.8 % (37.0-47.0); Mean Corpuscular Hemoglobin 32.6 pg (25.0-34.0); Mean Corpuscular Hgb Conc 34.9 g/dL (32.0-36.0); Mean Corpuscular Volume 93.5 fL (80.0-100.0); Nucleated RBC # (auto) 0.02 K/uL (0.00-0.12); Nucleated RBC % (auto) 0.6 %; Platelet Count 22 K/uL (130-400); RDW Coefficient of Variation 20.4 % (11.5-14.5); RDW Standard Deviation 56.7 fL (36.4-46.3); Red Blood Count 2.76 M/uL (4.20-5.40); White Blood Count 3.35 K/ul (4.8-10.8)
[2024-03-10 06:48] LABS: BUN Creatinine Ratio 24.1 (10-20); Calcium 7.7 mg/dl (8.6-10.3); Creatinine Clr Calc Pharmacy 16.8 ml/min; Est GFR (African American) 23.8 ml/min; Est GFR (Non-African American) 20.5 ml/min; Magnesium 1.8 mg/dl (1.7-2.4); Phosphorus 3.3 mg/dl (2.5-4.9); Potassium 3.5 mmol/L (3.5-5.1)
[2024-03-10 07:03] LABS: Anisocytosis Present; Basophils # (auto) 0.03 K/uL (0.00-0.20); Basophils % (auto) 0.9 %; Eosinophils # (auto) 0.01 K/uL (0.00-0.50); Eosinophils % (auto) 0.3 %; Immature Granulocytes # (auto) 0.27 K/uL (0.01-0.20); Immature Granulocytes % (auto) 8.1 %; Lymphocytes # (auto) 0.14 K/uL (1.20-3.40); Lymphocytes % (auto) 4.2 %; Monocytes # (auto) 0.54 K/uL (0.11-0.59); Monocytes % (auto) 16.1 %; Neutrophils # (auto) 2.36 K/uL (1.40-6.50); Neutrophils % (auto) 70.4 %
[2024-03-10] MEDS: PSYLLIUM or GUAR GUM FIBER 4GM PACKET PO SCH (09:00)
--- NOTE | 2024-03-10 09:41 | Hospitalist Progress Note ---
Date of Service March 10, 2024 Assessment & Plan (1) Diarrhea: Plan: Samantha is an 79F w/ PMH of SCC of buttock/rectal mass, HTN, and prior DVT who presented with 2 days of profuse, watery diarrhea. 03/09 update: No significant changes to the plan below did stop fluids due to being fluid overload on physical exam. Did have a discussion with family bedside about goals of care. Patient initially wanted to go the hospice route, though family is concerned about level of nursing support she will receive with hospice. Ultimately it was decided that patient will try rehab and if unsuccessful is willing to transition to hospice due to getting insurance approval for SNF 03/10 update: No significant changes to plan above/below. Per case management, authorization has been approved and transportation can be arranged to [facility] tomorrow. Dyspnea/Hypotension - Patient's hypotension typically responds well to fluid boluses. +25 L since admission, though urine output not accurately measured. - 1: patient noting increased dyspnea, CXR obtained, showing pulmonary congestion and pleural effusions - /2: acute worsening of dyspnea, IVF discontinued, CXR obtained showing increased pulmonary congestion Symptoms progressing to chest pressure, pain radiating to back, and torso pain - Patient likely to benefit from diuresis, but BPs remain too soft to tolerate diuresis on the floor Hypotension thought to be related to ongoing diarrhea -Patient is currently in the ICU receiving pressors. BNP 506, on 2L NC sating well. Echo showed an EF of 70%, without regional wall motion abnormalities, mild pulmonary hypertension -Fluids restarted in the ICU due to SHENG. -03/07 in ICU : -Remains on pressors, midodrine 5 mg 3 times daily added random cortisol was 22. Remaining on Zosyn for suspected enterocolitis causing sepsis. -Low platelets and pancytopenia, given 1 unit of blood. -Patient with pancytopenia and possible acute blood loss anemia secondary to GI losses in the setting of recent chemo and radiation. -GI consulted, appreciate recommendations. Can do CT abdomen pelvis with p.o. and IV contrast to exclude other issues if symptoms do not improve. - 03/08: Off of pressors, remains on midodrine 5 mg 3 times a day. Is safe to be discharged from the ICU. Did discuss with patient in great detail with family members bedside about hospice care. Patient would like to wait until her entire family is present to have these discussions but is leaning more towards going to the hospice route rather than pursuing further treatment for her cancer. Radiation Enterocolitis/Watery Diarrhea - CT AP indicative of enterocolitis, of radiation vs infectious origin Patient w/ history of radiation to the rectum/buttocks Overnight episode of frankly bloody diarrhea during admission Presentation c/w radiation enterocolitis - Patient undergoing chemotherapy, last tx 2 weeks ago Currently pancytopenic, including neutropenia Ongoing neutropenic precautions Remains afebrile - Infectious workup: Stool PCR and c. diff negative CRP increased from admission 3.48-> 9.41 Cefepime/Flagyl empirically through 03/03 - Hematology consulted, appreciate recommendations - Continue Budesonide taper - Avoid rectal tube placement d/t risk of perforation - IVF discontinued, restarted in ICU due to SHENG. - PO intake remains poor, continue Boost supplementation w/ meals -GI consulted: -Can do CT abdomen pelvis with p.o. and IV contrast to exclude other issues if symptoms do not improve. -C. difficile collected, if normal can use Imodium or Lomotil up to 8 tablets daily SHENG -Increase in BUN/creatinine, urine output slowly improved. -Started on IV fluids in the ICU. Stopped at this time due to fluid overload on exam. -Improving. Neutropenia a/w Chemotherapy - Last dose of chemo > 2 weeks ago - Patient with pancytopenia, moderate neutropenia. - She is afebrile, non-toxic in appearance. Likely secondary to chemotherapy. - Continue neutropenic precautions Excoriation of Buttock a/w Radiation Therapy - Wound care q shift - Continue silver sulfadiazine cream at home dose - Turn and position q 2 hours for skin protection - May benefit from barrier cream - Continue home Oxycodone 5mg q4-6hrs prn for pain DVT Prophylaxis - Bilateral LE venous doppler performed on 02/11/24 with venous thrombus within the left gastrocnemius vein which extends for 5.4 cm in length - Repeat b/l LE doppler 03/03 without any clots - Hold Apixaban 2.5mg po BID due to thrombocytopenia. Asymptomatic Bacteruria - UA appears infectious w/o symptoms, culture growing E. faecalis - Patient remains afebrile, hypotension thought to be a/w ongoing diarrhea more so than sepsis Hypoxia (New onset 1-2 L requirement this admission) - CXR On admission w/ bilateral lower opacities, CTAP w/o signs of infection (outpatient PFTs, recommended to eval for COPD) Procal negative - Potential atelectasis on imaging, incentive spirometry encouraged - Duloriebs ordered PRN, w/ benefit per patient DVT ppx: Eliquis held due to thrombocytopenia while under 50k FEN/GI: Regular Code Status: Full Dispo: PCU/telemetry (2) Neutropenia: (3) Excoriation of buttock: (4) DVT (deep venous thrombosis): (5) Hypertension: (6) Asymptomatic bacteriuria: (7) Hypoxia: (8) Thrombocytopenia: Admission and Anticipated Discharge Date Admission Date: February 27, 2024 Supervising Physician Co-Signing Physician Notes I personally examined the patient and verified all perla points of history and exam, discussed case, and agree with decision making with Dr Bueno Had some incontinence. Otherwise no complaints. Vitals noted. Awake and alert pleasant no distress. Breathing unlabored no accessory muscle use good effort. Skin without rashes pallor or icterus. Neuro without focal deficits. Cancer Several days having extensive discussions of risks and benefits of a hospice versus ongoing aggressive approach. hospice plan - after further discussions [facility] ([facility])probably tomorrow. Hypotension /hypovolemic/septic shock all related to neutropenia/di arrhea/infectious colitis -from poor PO intake and poor circulating volume d/t hypoalbuminemia - Fortunately this appears stable. Diarrhea with neutropenia - diarrhea chemo/radiation related as well as what appears to be sepsis from a secondary enterocolitiscontinue antibiotics and supportive care. lomotil/Fiber Poor appetitehospice plan Pancytopenia Recent DVT - 02/10. eliquis SCC of buttock - with excoriation - local care. Subjective Patient awake in the room on arrival this morning. No acute events overnight. Patient reports arm swelling has improved. She had 2 loose/watery bowel movements overnight. Has not had a bowel movement since having breakfast. Overall, she feels much better today vs yesterday. She has no acute complaints. Review of Systems Review of Systems: All systems reviewed & are unremarkable except as noted in HPI & below Physical Exam Physical Exam: General: no acute distress, speaking in full sentences Resp: good inspiratory effort, no labored breathing HEENT: conjunctivae appear clear, no audible congestion, no swelling noted face or lips Skin: skin appears dry, normal coloration, no rash visible on exposed skin areas Extremities: No swelling in UE bilaterally. Bilateral 2+ pitting LE edema. Neuro: alert and oriented x3, no focal deficits appreciated Psych: euthymic affect, pleasant and interactive, logical thought process Results & Data Results & Data Vital Signs (Past 12 Hours) Vital Signs Temp Pulse Pulse Resp BP Pulse Ox O2 Del Method 03/10/24 08:00 36.8 C 90 18 115/56 L 96 Nasal Cannula 03/10/24 02:52 36.5 C 89 17 109/63 99 Nasal Cannula 03/10/24 00:50 36.8 C 79 18 103/52 L 90 Room Air 03/09/24 23:10 68 O2 Flow Rate 03/10/24 08:00 2 03/10/24 02:52 2 03/10/24 00:50 03/09/24 23:10 Resident Activity Tracking Resident Involvement: Resident Care Provided Care Provided: Adult Hospital Medicine (1) Diarrhea Diarrhea type: unspecified type Qualified Code(s): R19.7 - Diarrhea, unspecified (3) Excoriation of buttock Encounter type: initial encounter Qualified Code(s): S30.810A - Abrasion of lower back and pelvis, initial encounter
--- NOTE | 2024-03-10 18:24 | Billing Data ---
Date of Service March 10, 2024 Coding Level of Care Code 37491 SUB INP/OBS CARE
--- NOTE | 2024-03-11 15:08 | Discharge Summary ---
Date of Service March 11, 2024 Admission HPI Per Admitting Provider Samantha Milan is a pleasant 79yo female with history of squamous cell carcinoma of the anal canal diagnosed 11/02/2023. She has received chemotherapy with 5-FU (last treatment 2 weeks ago per patient), receives daily radiation therapy. She presents today with ongoing watery diarrhea. Patient was seen in the ER 02/25/24 with similar complaint. Her diarrhea started on the afternoon of 02/25/24. She reports 5-6 episodes of explosive, watery diarrhea. She had incontinence, unable to control her bowels. During her ER visit, she had a CT scan of the abdomen which revealed findings suggestive of enterocolits. Patient was ultimately discharged home. Her diarrhea returned today appx 1 hour after she ate some chicken-dumpling soup. She again had 5-6 episodes of watery, non-bloody/non-mucoid diarrhea. She has known hemorrhoids and reports consistent BRBPR on the toilet paper after wiping - no clots or increase in this. No recent antibiotic use. No recent travel. Per chart review, patient has had diarrhea in the past and has been given Immodium No additional complaints at this time. She denies fever, chills, shakes or sweats. Denies abdominal pain, cramping or distention. No nausea or vomiting No CP, cough, SOB. In the ER she is afebrile, HD stable and non-toxic in appeaerance ER Course: Cefepime 2gm Flagyl 500mg Magnesium 1gm Calcium gluconate 1gm NSS x 1L Admission Exam Per Admitting Provider General: patient resting comfortably, NAD, non-toxic in appearance, AA&O x 4 Skin: warm, dry, intact, no rashes or lesions HEENT: NC/AT, PERRL, EOMI, anicteric sclera, conjunctiva without injection, external ear normal to inspection and nontender, nares patent, moist mucus membranes, dentition intact, no oropharyngeal lesions, neck supple, trachea midline, no LAD, no thyromegaly, no JVD Heart: +S1/S2, regular, no m/r/g Lungs: equal air entry bilaterally, scattered end-expiratory wheezing, rhonchi present cleared by coughing Abd: +BS, soft, NT/ND, no masses/organomegaly/ascites Ext: warm, 2+ pulses in UE/LE bilaterally, no clubbing/cyanosis or edema Neuro: nonfocal, patient AA&O x 4, speech intact, no facial droop, moving all extremities on command with equal strength 5/5 Principal Diagnosis Radiation enterocolitis Dyspnea/hypotension SHENG Discharge Exam General: no acute distress, speaking in full sentences Resp: good inspiratory effort, no labored breathing HEENT: conjunctivae appear clear, no audible congestion, no swelling noted face or lips Skin: skin appears dry, normal coloration, no rash visible on exposed skin areas Extremities: No swelling in UE bilaterally. Bilateral 2+ pitting LE edema. Neuro: alert and oriented x3, no focal deficits appreciated Psych: euthymic affect, pleasant and interactive, logical thought process Discharge Data Allergies Allergy/AdvReac Type Severity Reaction Status Date / Time No Known Allergies Allergy Verified 02/26/24 22:04 Consultations 02/26/24 23:45 ED Decision to Admit Stat 02/29/24 07:02 Consult Oncology Routine 03/05/24 10:23 Consult Primary Care Nurse Practitioner Stat 03/07/24 09:57 Consult Gastroenterology Routine Ordered Studies 03/03/24 10:17 US venous doppler LE BI Urgent 03/04/24 10:38 MRI Brain [MR brain wo con] Stat Hospital Course (1) Diarrhea: Samantha is an 79F w/ PMH of SCC of buttock/rectal mass, HTN, and prior DVT who presented with 2 days of profuse, watery diarrhea. 03/09 update: No significant changes to the plan below did stop fluids due to being fluid overload on physical exam. Did have a discussion with family bedside about goals of care. Patient initially wanted to go the hospice route, though family is concerned about level of nursing support she will receive with hospice. Ultimately it was decided that patient will try rehab and if unsuccessful is willing to transition to hospice due to getting insurance approval for SNF 03/10 update: No significant changes to plan above/below. Per case management, authorization has been approved and transportation can be arranged to [facility] tomorrow. Dyspnea/Hypotension - Patient's hypotension typically responds well to fluid boluses. +25 L since admission, though urine output not accurately measured. - 03/04: patient noting increased dyspnea, CXR obtained, showing pulmonary congestion and pleural effusions - /2: acute worsening of dyspnea, IVF discontinued, CXR obtained showing increased pulmonary congestion Symptoms progressing to chest pressure, pain radiating to back, and torso pain - Patient likely to benefit from diuresis, but BPs remain too soft to tolerate diuresis on the floor Hypotension thought to be related to ongoing diarrhea -Patient is currently in the ICU receiving pressors. BNP 506, on 2L NC sating well. Echo showed an EF of 70%, without regional wall motion abnormalities, mild pulmonary hypertension -Fluids restarted in the ICU due to SHENG. -03/07 in ICU : -Remains on pressors, midodrine 5 mg 3 times daily added random cortisol was 22. Remaining on Zosyn for suspected enterocolitis causing sepsis. -Low platelets and pancytopenia, given 1 unit of blood. -Patient with pancytopenia and possible acute blood loss anemia secondary to GI losses in the setting of recent chemo and radiation. -GI consulted, appreciate recommendations. Can do CT abdomen pelvis with p.o. and IV contrast to exclude other issues if symptoms do not improve. - 03/08: Off of pressors, remains on midodrine 5 mg 3 times a day. Is safe to be discharged from the ICU. Did discuss with patient in great detail with family members bedside about [facility] care. Patient would like to wait until her entire family is present to have these discussions but is leaning more towards going to the hospice route rather than pursuing further treatment for her cancer. Radiation Enterocolitis/Watery Diarrhea - CT AP indicative of enterocolitis, of radiation vs infectious origin Patient w/ history of radiation to the rectum/buttocks Overnight episode of frankly bloody diarrhea during admission Presentation c/w radiation enterocolitis - Patient undergoing chemotherapy, last tx 2 weeks ago Currently pancytopenic, including neutropenia Ongoing neutropenic precautions Remains afebrile - Infectious workup: Stool PCR and c. diff negative CRP increased from admission 3.48-> 9.41 Cefepime/Flagyl empirically through 03/03 - Hematology consulted, appreciate recommendations - Continue Budesonide taper - Avoid rectal tube placement d/t risk of perforation - IVF discontinued, restarted in ICU due to SHENG. - PO intake remains poor, continue Boost supplementation w/ meals -GI consulted: -Can do CT abdomen pelvis with p.o. and IV contrast to exclude other issues if symptoms do not improve. -C. difficile collected, if normal can use Imodium or Lomotil up to 8 tablets daily SHENG -Increase in BUN/creatinine, urine output slowly improved. -Started on IV fluids in the ICU. Stopped at this time due to fluid overload on exam. -Improving. Neutropenia a/w Chemotherapy - Last dose of chemo > 2 weeks ago - Patient with pancytopenia, moderate neutropenia. - She is afebrile, non-toxic in appearance. Likely secondary to chemotherapy. - Continue neutropenic precautions Excoriation of Buttock a/w Radiation Therapy - Wound care q shift - Continue silver sulfadiazine cream at home dose - Turn and position q 2 hours for skin protection - May benefit from barrier cream - Continue home Oxycodone 5mg q4-6hrs prn for pain DVT Prophylaxis - Bilateral LE venous doppler performed on 02/11/24 with venous thrombus within the left gastrocnemius vein which extends for 5.4 cm in length - Repeat b/l LE doppler 03/03 without any clots - Hold Apixaban 2.5mg po BID due to thrombocytopenia. Asymptomatic Bacteruria - UA appears infectious w/o symptoms, culture growing E. faecalis - Patient remains afebrile, hypotension thought to be a/w ongoing diarrhea more so than sepsis Hypoxia (New onset 1-2 L requirement this admission) - CXR On admission w/ bilateral lower opacities, CTAP w/o signs of infection (outpatient PFTs, recommended to eval for COPD) Procal negative - Potential atelectasis on imaging, incentive spirometry encouraged - Duonebs ordered PRN, w/ benefit per patient DVT ppx: Eliquis held due to thrombocytopenia while under 50k FEN/GI: Regular Code Status: Full Dispo: PCU/telemetry (2) Neutropenia: (3) Excoriation of buttock: (4) DVT (deep venous thrombosis): (5) Hypertension: (6) Asymptomatic bacteriuria: (7) Hypoxia: (8) Thrombocytopenia: Total Time Total Time Spent Total Time Spent (In Minutes): <30 Discharge Plan Discharge Items Patient Disposition: Transfer Senior Living Fac Reason For Visit: DIARRHEA, NEUTROPENIA Discharge Diagnosis: Enterocolitis, neutropenia Activity: Per Instructions section Non-emergency contact: Primary Care Provider Call non-emergency contact if: you have any medication questions and your pain is not controlled Follow-up/Referrals: Burke Ospina [Primary Care Provider] - Diet: Regular Addtl Attending Provider Instructions: Samantha is an 79F w/ PMH of SCC of buttock/rectal mass, HTN, and prior DVT who presented with 2 days of profuse, watery diarrhea. 03/09 update: No significant changes to the plan below did stop fluids due to being fluid overload on physical exam. Did have a discussion with family bedside about goals of care. Patient initially wanted to go the hospice route, though family is concerned about level of nursing support she will receive with hospice. Ultimately it was decided that patient will try rehab and if unsuccessful is willing to transition to hospice due to getting insurance approval for SNF 03/10 update: No significant changes to plan above/below. Per case management, authorization has been approved and transportation can be arranged to [facility] tomorrow. Dyspnea/Hypotension - Patient's hypotension typically responds well to fluid boluses. +25 L since admission, though urine output not accurately measured. - 03/04: patient noting increased dyspnea, CXR obtained, showing pulmonary congestion and pleural effusions - 2: acute worsening of dyspnea, IVF discontinued, CXR obtained showing increased pulmonary congestion Symptoms progressing to chest pressure, pain radiating to back, and torso pain - Patient likely to benefit from diuresis, but BPs remain too soft to tolerate diuresis on the floor Hypotension thought to be related to ongoing diarrhea -Patient is currently in the ICU receiving pressors. BNP 506, on 2L NC sating well. Echo showed an EF of 70%, without regional wall motion abnormalities, mild pulmonary hypertension -Fluids restarted in the ICU due to SHENG. -03/07 in ICU : -Remains on pressors, midodrine 5 mg 3 times daily added random cortisol was 22. Remaining on Zosyn for suspected enterocolitis causing sepsis. -Low platelets and pancytopenia, given 1 unit of blood. -Patient with pancytopenia and possible acute blood loss anemia secondary to GI losses in the setting of recent chemo and radiation. -GI consulted, appreciate recommendations. Can do CT abdomen pelvis with p.o. and IV contrast to exclude other issues if symptoms do not improve. - 03/08: Off of pressors, remains on midodrine 5 mg 3 times a day. Is safe to be discharged from the ICU. Did discuss with patient in great detail with family members bedside about hospice care. Patient would like to wait until her entire family is present to have these discussions but is leaning more towards going to the hospice route rather than pursuing further treatment for her cancer. Radiation Enterocolitis/Watery Diarrhea - CT AP indicative of enterocolitis, of radiation vs infectious origin Patient w/ history of radiation to the rectum/buttocks Overnight episode of frankly bloody diarrhea during admission Presentation c/w radiation enterocolitis - Patient undergoing chemotherapy, last tx 2 weeks ago Currently pancytopenic, including neutropenia Ongoing neutropenic precautions Remains afebrile - Infectious workup: Stool PCR and c. diff negative CRP increased from admission 3.48-> 9.41 Cefepime/Flagyl empirically through 03/03 - Hematology consulted, appreciate recommendations - Continue Budesonide taper - Avoid rectal tube placement d/t risk of perforation - IVF discontinued, restarted in ICU due to SHENG. - PO intake remains poor, continue Boost supplementation w/ meals -GI consulted: -Can do CT abdomen pelvis with p.o. and IV contrast to exclude other issues if symptoms do not improve. -C. difficile collected, if normal can use Imodium or Lomotil up to 8 tablets daily SHENG -Increase in BUN/creatinine, urine output slowly improved. -Started on IV fluids in the ICU. Stopped at this time due to fluid overload on exam. -Improving. Neutropenia a/w Chemotherapy - Last dose of chemo > 2 weeks ago - Patient with pancytopenia, moderate neutropenia. - She is afebrile, non-toxic in appearance. Likely secondary to chemotherapy. - Continue neutropenic precautions Excoriation of Buttock a/w Radiation Therapy - Wound care q shift - Continue silver sulfadiazine cream at home dose - Turn and position q 2 hours for skin protection - May benefit from barrier cream - Continue home Oxycodone 5mg q4-6hrs prn for pain DVT Prophylaxis - Bilateral LE venous doppler performed on 02/11/24 with venous thrombus within t he left gastrocnemius vein which extends for 5.4 cm in length - Repeat b/l LE doppler 03/03 without any clots - Hold Apixaban 2.5mg po BID due to thrombocytopenia. Asymptomatic Bacteruria - UA appears infectious w/o symptoms, culture growing E. faecalis - Patient remains afebrile, hypotension thought to be a/w ongoing diarrhea more so than sepsis - Butler placed, but more to reduce chance of infection, given her perirectal excoriation (s/p radiation therapy). Leaving Butler in at discharge, but may consider discontinuation at a later date if perirectal excoriations improve, or if patient becomes less fecally incontinent. Hypoxia (New onset 1-2 L requirement this admission) - CXR On admission w/ bilateral lower opacities, CTAP w/o signs of infection (outpatient PFTs, recommended to eval for COPD) Procal negative - Potential atelectasis on imaging, incentive spirometry encouraged - Duonebs ordered PRN, w/ benefit per patient Pending Studies at Discharge: No Stand-Alone Forms: My [facility] Skilled Items Patient informed of condition?: Yes DNR: Yes Discharge Level of Care: Skilled Communicable Disease: No Discharge Prognosis: Stable Lines: None Urinary Catheter: Yes Medications and DC Order Prescriptions: Continued ondansetron HCl 8 mg tablet 8 mg PO Q8H PRN (Reason: Nausea) prochlorperazine maleate [Compazine] 10 mg tablet 10 mg PO Q6H PRN (Reason: Nausea And Vomiting) gabapentin 100 mg capsule 100 mg PO TID Eliquis 2.5 mg Tablet 2.5 mg PO Q12H atenolol 100 mg tablet 100 mg PO .DAILY @ 1130 meclizine 25 mg tablet 25 mg PO BID PRN (Reason: Vertigo) silver sulfadiazine [Silvadene] 1 % cream 1 applic topical BID Qty: 85 3RF Rx Instructions: apply a 1.5 mm thickness Sween Cream Cream 1 applic TOPICAL 6XD PRN (Reason: Skin Irritation) pantoprazole 40 mg tablet,delayed release (DR/EC) 40 mg PO QAM diphenoxylate-atropine [Lomotil] 2.5-0.025 mg tablet 1 tab PO Q6H PRN (Reason: diarrhea) Qty: 12 0RF Discharge Orders: Discharge Order (Routine); Ordered 03/11/24 Ordered By: Jack Bueno Admission Data Admit Date/Time: 02/27/24 00:41 Attending Provider: Bonifacio Barragan Admit Provider: Shruti White Primary Care Provider: Burke Ospina Other Providers: Bonifacio Barragan; [facility]; Shruti White; Abebe Masterson; Vladimir Long; Charlie Gatica Other Interventions: Discharge Summary Assessment (RN) Last Done: 03/11/24 10:33 Supervising Physician Co-Signing Physician Notes I personally examined the patient and verified all perla points of history and exam, discussed case, and agree with decision making with Dr Bueno for noelle pisano today. discussed next steps. offered empathy and support. Vitals noted. Awake and alert pleasant no distress. Breathing unlabored no accessory muscle use good effort. Skin without rashes pallor or icterus. Neuro without focal deficits. Cancer Several days having extensive discussions of risks and benefits of a hospice versus ongoing aggressive approach. palliative plan/SNF/noelle flores. she would like therapy to try to strengthen which is quite reasonable. Hypotension /hypovolemic/septic shock all related to neutropenia/diarrhea/infectious colitis -from poor PO intake and poor circulating volume d/t hypoalbuminemia - Fortunately this appears stable. safe for dc Diarrhea with neutropenia - diarrhea chemo/radiation related as well as what appears to be sepsis from a secondary enterocolitiscontinue antibiotics and supportive care. lomotil/Fiber Poor appetitepalliative goals of care Pancytopenia Recent DVT - 02/10. eliquis SCC of buttock - with excoriation - local care. Resident Activity Tracking Resident Involvement: Resident Care Provided Care Provided: Adult Hospital Medicine
--- NOTE | 2024-03-11 18:12 | Billing Data ---
Date of Service March 11, 2024 Coding Level of Care Code 61507 IN/OBS DISCH 30 MIN/LESS
== END 2024-03-11 11:31 | DRG 393 ==
LOC: ED 21:29 → 3W 02-27 00:41 → SUATTDRO 02-27 00:41 → 3W 02-27 01:43 → 1E 03-05 11:05 → 2S 03-09 00:05